=== PATIENT | female | born 1990 | race Caucasian/White ===

== ENCOUNTER 2021-04-21 07:13 | Inpatient (IN) ==
[2021-04-21] MEDS ORDERED: OXYTOCIN 30 UNITS/500 ML BAG IV PRN ×3 (08:15→18:32)
[2021-04-21] MEDS ORDERED: PENICILLIN G POTASSIUM 6 MU in DEXTROSE 5% 250 ML IV STA (08:29)
[2021-04-21 08:34] LABS: Hematocrit (blood only) 34.9 % (37-47); Hemoglobin 11.5 g/dL (12.0-16.0); Mean Corpuscular Hemoglobin 29.7 pg (25-34); Mean Corpuscular Volume 90.2 fL (80-100); Platelet Count 262 K/uL (130-400); RDW Coefficient of Variation 14.5 % (11.5-14.5); RDW Standard Deviation 47.5 fL (36.4-46.3); Red Blood Count 3.87 M/uL (4.2-5.4)
[2021-04-21] MEDS ORDERED: DINOPROSTONE 10 MG INSERT PV ONE (08:38)
[2021-04-21] MEDS: LACTATED RINGER'S 1,000 ML IV PRN ×2 (08:52→15:20)
--- NOTE | 2021-04-21 09:12 | Labor Progress Brief Note ---
Date of Service April 21, 2021 Assessment & Plan Admission and Anticipated Discharge Date Admission Date: April 21, 2021 Physical Exam Genitourinary: no vaginal lesions, no adnexal mass OB Exam Abdomen: + fundal height and + vertex Manual OB Exam: + cervical dilation fingertip, + cervical effacement 50% and + station high OB Exam Monitor Tracing: + external FHT monitor used, + external uterine monitor used, + category I and + normal FHT variability Cervidil placed vaginally for cervical ripening Results & Data ([facility]) Vital Signs (Past 12 Hours) Vital Signs Temp Pulse Resp BP 04/21/21 08:05 36.6 C 109 H 18 142/89 H 04/21/21 07:57 109 H 142/89 H
[2021-04-21] MEDS ORDERED: PENICILLIN G POTASSIUM 3 MU in DEXTROSE 5% 100 ML IV PRN (11:22)
[2021-04-21] MEDS ORDERED: fentaNYL 2MCG/ML ROPIVACAINE 1.25MG/ML 100 ML BAG EPI ONE (13:10)
[2021-04-21] MEDS ORDERED: fentaNYL citrate 100 MCG/2 ML VIAL ONE (13:10)
[2021-04-21] MEDS ORDERED: BUPIVACAINE 0.25% 30 ML VIAL ONE (13:10)
[2021-04-21] MEDS ORDERED: SODIUM CHLORIDE 0.9% INJ 10 ML VIAL ONE (13:10)
[2021-04-21] MEDS ORDERED: ePHEDrine sulfate 50 MG/ML AMP ONE (13:10)
[2021-04-21] MEDS ORDERED: ePHEDrine sulfate 50 MG/ML AMP IV PRN (13:23)
[2021-04-21] MEDS ORDERED: NALOXONE HCL 0.4 MG/1 ML VIAL/CARP IV PRN (13:23)
[2021-04-21] MEDS ORDERED: NALBUPHINE HCL INJ 10 MG/ML AMP IV PRN (13:23)
[2021-04-21] MEDS ORDERED: NALOXONE HCL 1 MG in SODIUM CHLORIDE 0.9% 1000ML 1,000 ML IV PRN (13:23)
[2021-04-21] MEDS ORDERED: fentaNYL 2MCG/ML ROPIVACAINE 1.25MG/ML 100 ML BAG EPI PRN (13:23)
[2021-04-21] MEDS ORDERED: ONDANSETRON INJ 2 MG/ML 2 ML VIAL IV PRN (13:23)
[2021-04-21] MEDS ORDERED: diphenhydrAMINE 50 MG/ML VIAL IV PRN (13:23)
--- NOTE | 2021-04-21 13:28 | Anesthesiology Consultation ---
Date of Service April 21, 2021 Assessment & Plan (1) Encounter for pre-operative examination: Chart Review Chart Review: Acceptable Risk for Labor Epidural Consults Requested none ASA ASA2 Proposed Anesthesia Anesthesia Type: Labor Epidural Risk / Benefits Reviewed With: PT / POA / Parent / Guardian, Accepts Plan and Informed Consent Obtained History Height/Weight Height: 5 ft 2 in Weight: 106.141 kg Allergies Allergy/AdvReac Type Severity Reaction Status Date / Time gluten Allergy Diarrhea Verified 04/21/21 09:35 Medications Home Medications Medication Instructions Recorded Confirmed Last Taken fluticasone propionate 50 2 spray INTRANASAL DAILY 04/21/21 04/21/21 Unknown mcg/actuation nasal spray,suspension pantoprazole 40 mg tablet,delayed 40 mg PO DAILY 04/21/21 04/21/21 04/21/21 06:00 release (Protonix) prenat.vits,te,ovy-huiv-ngyok 1 tab PO DAILY 04/21/21 04/21/21 04/21/21 06:00 Active Medications Generic Name Dose Route Start Last Admin Trade Name Brandonq PRN Reason Stop Dose Admin Lactated Ringer's 1,000 mls @ 125 mls/hr 04/21/21 08:15 04/21/21 08:52 Lr IV 04/23/21 08:14 125 mls/hr .Q8H PRN Administration L&D Protocol Protocol Exercise / Class Metabolic Activity II 4-5 Yardwork/Stairs/Walk up hill Past Anesthesia History No Hx of Anesthesia Complications and No Family Hx of Anesthesia Complications History of PONV No Hx of PONV and No Hx of Motion Sickness Social History Smoking Status: Never smoker Do You Dip or Chew Tobacco: No Hx Alcohol Use: No Hx Substance Use: No substance use type: does not use Physical Exam Vital Signs Last Vital Signs Temp 97.7 F 04/21/21 11:56 Pulse 75 04/21/21 12:28 Resp 18 04/21/21 11:56 BP 134/79 04/21/21 12:28 ENMT Mouth: no dentition abnormality Thyromental Distance: > or= 3.5 Finger Breadths Mallampati Class: II Neck normal visual inspection Respiratory normal respiratory effort Auscultation: lungs clear to auscultation bilaterally Cardiovascular Rate/Rhythm: regular rate and regular rhythm Testing Laboratory Results 04/21/21 08:27
--- NOTE | 2021-04-21 15:06 | History & Physical Report ---
Date of Service April 21, 2021 Assessment & Plan (1) Post-dates : Plan: Admit to L&D Antibiotics for GBS plans for epidural Admission and Anticipated Discharge Date Admission Date: April 21, 2021 History of Present Illness Chief Complaint: induction of labor for post-dates Primary Care Provider: Aruna Yoo, 31 F P0000 at 40.6 admittted for induction of labor for post-dates . GBS is positive. Covid is negative. history uncomplicated. Allergies Allergy/AdvReac Type Severity Reaction Status Date / Time gluten Allergy Diarrhea Verified 04/21/21 09:35 Home Medications Medication Instructions Recorded Confirmed Type fluticasone propionate 50 2 spray INTRANASAL DAILY 04/21/21 04/21/21 History mcg/actuation nasal spray,suspension pantoprazole 40 mg tablet,delayed 40 mg PO DAILY 04/21/21 04/21/21 History release (Protonix) prenat.vits,te,cbj-qrmo-phkiz 1 tab PO DAILY 04/21/21 04/21/21 History Patient History Social History Smoking Status: Never smoker Second Hand Exposure: No; Do You Dip or Chew Tobacco: No; Hx Alcohol Use: No Hx Substance Use: No Preferred Language: Citizen Of [place] Communication Ability: Effective District Court Bailiff Required: No Beliefs That Will Affect Care: None marital status: Current Living Situation: Spouse Current Living Situation Comment: Pt lives with and 2 cats Other Information That Helps Us Care for You: No Feels Safe at Home: Yes Safety Concerns: Feels Safe At This Time Assistive Devices: None OB History primip [employer] History neg Review of Systems All systems reviewed & are unremarkable except as noted in HPI & below Physical Exam Constitutional: WD/WN, vitals as above comfortable Results & Data ([place]) Vital Signs (Past 12 Hours) Vital Signs Temp Pulse Resp BP Pulse Ox 04/21/21 14:55 78 100 04/21/21 14:50 75 100 04/21/21 14:47 72 133/78 04/21/21 14:45 79 99 04/21/21 14:40 73 99 04/21/21 14:37 80 90 04/21/21 14:35 70 97 04/21/21 14:32 71 133/81 04/21/21 14:30 72 97 04/21/21 14:25 73 97 04/21/21 14:20 68 96 04/21/21 14:17 71 143/72 H 04/21/21 14:15 74 98 04/21/21 14:10 74 98 04/21/21 14:05 89 99 04/21/21 14:02 73 135/65 04/21/21 14:00 78 99 04/21/21 13:59 76 133/62 04/21/21 13:56 77 143/81 H 04/21/21 13:55 79 98 04/21/21 13:53 74 140/82 04/21/21 13:51 81 142/82 H 04/21/21 13:50 75 98 04/21/21 13:49 80 148/81 H 04/21/21 13:47 74 146/86 H 04/21/21 13:45 75 147/89 H 100 04/21/21 13:43 77 127/82 04/21/21 13:42 83 132/67 04/21/21 13:40 86 152/72 H 99 04/21/21 13:35 91 H 100 04/21/21 13:33 86 143/95 H 04/21/21 13:30 97 H 99 04/21/21 12:28 75 134/79 04/21/21 11:56 36.5 C 18 04/21/21 10:56 82 130/67 04/21/21 08:05 36.6 C 109 H 18 142/89 H 04/21/21 07:57 109 H 142/89 H Code Status & VTE Plan VTE Prophylaxis Plan VTE Prophylaxis will be ordered: No Monitoring External Monitor Cat 1
--- NOTE | 2021-04-21 18:31 | Delivery Summary ---
Vaginal Delivery Summary Date of Service April 21, 2021 Vaginal Delivery Summary Delivery Note live male MARIJA over intact perineum with delayed cord clamping and Apgars 8/9 weight pending. Cord blood obtained followed by spontaneous delivery of intact placenta. No tears. EBL 100 ml. Final sponge and instrument count are correct. Mom and baby stable.
[2021-04-21] MEDS ORDERED: bisacodyL 10 MG SUPP PR PRN (18:32)
[2021-04-21] MEDS ORDERED: SUPERCREAM 0.870% 15 GM JAR EXT PRN (18:32)
[2021-04-21] MEDS ORDERED: HYDROCORTISONE ACETATE 25 MG SUPP PR PRN (18:32)
[2021-04-21] MEDS ORDERED: BENZOCAINE 20% AER SPR 82.5 GM CAN EXT PRN (18:32)
[2021-04-21] MEDS ORDERED: ACETAMINOPHEN 325 MG TAB PO PRN (18:32)
[2021-04-21] MEDS ORDERED: DIPHTHERIA/TETANUS/PERTUSSIS 0.5 ML SYR/VIAL IM ONE (18:32)
--- NOTE | 2021-04-21 19:53 | Anesthesia Procedure Note ---
Date of Service April 21, 2021 Anesthesia Post Epidural Note Vital Signs Vital Signs: Temp Pulse Resp BP Pulse Ox 98.2 F 87 18 135/65 96 04/21/21 19:10 04/21/21 19:29 04/21/21 19:10 04/21/21 19:29 04/21/21 18:20 Notes Mental Status: alert / awake / arousable and participated in evaluation Nausea / Vomiting: adequately controlled Pain: adequately controlled Airway Patency, RR, SpO2: stable & adequate BP & HR: stable & adequate Hydration State: stable & adequate Neuraxial Anesthesia: was administered and sensory block is resolving Anesthetic Complications: no major complications apparent and Pt Satisfied with anesthetic care Epidural: Removed without complications and With tip intact
[2021-04-21] MEDS: DOCUSATE SODIUM 100 MG CAP PO SCH (21:48)
[2021-04-22] MEDS: IBUPROFEN 600 MG TAB PO PRN ×3 (04:01→19:32)
[2021-04-22 06:29] LABS: Hematocrit (blood only) 29.1 % (37-47); Hemoglobin 9.8 g/dL (12.0-16.0); Mean Corpuscular Hemoglobin 29.7 pg (25-34); Mean Corpuscular Hgb Conc 33.7 g/dL (32-36); Mean Corpuscular Volume 88.2 fL (80-100); Mean Platelet Volume 10.7 fL (7.4-10.4); Platelet Count 242 K/uL (130-400); RDW Coefficient of Variation 14.5 % (11.5-14.5); RDW Standard Deviation 46.9 fL (36.4-46.3); White Blood Count 15.31 K/uL (4.8-10.8)
[2021-04-22] MEDS: PRENATAL VITAMIN 1 TAB PO SCH (08:49)
[2021-04-22] MEDS: FERROUS SULFATE 325 MG TAB PO SCH (08:49)
[2021-04-22] MEDS: DOCUSATE SODIUM 100 MG CAP PO SCH ×2 (08:49→19:31)
[2021-04-22] MEDS ORDERED: NON-FORMULARY MEDICATION (Prenat.Vits,Cal,Min-Iron-Folic Tablet) PO SCH (09:00)
--- NOTE | 2021-04-22 09:31 | Obstetrical Progress Note ---
Date of Service April 22, 2021 Assessment & Plan (1) Normal course: PPD #1 pt doing well d/c home with instructions Results & Data ([facility]) Vital Signs (Past 12 Hours) Vital Signs Temp Pulse Resp BP 04/22/21 08:00 36.9 C 94 H 18 131/82 04/22/21 03:55 36.6 C 80 18 117/80 04/21/21 23:20 36.7 C 90 18 133/83
[2021-04-22] MEDS: PANTOprazole 40 MG TAB PO SCH (15:33)
[2021-04-22] MEDS: FLUTICASONE PROPIONATE NA SPR 16 GM BTL SCH (16:18)
[2021-04-22] MEDS ORDERED: bisacodyL 5 MG TABEC PO SCH (20:00)
[2021-04-23] MEDS: IBUPROFEN 600 MG TAB PO PRN ×3 (02:59→12:50)
[2021-04-23 06:56] LABS: Hematocrit (blood only) 28.8 % (37-47); Hemoglobin 9.7 g/dL (12.0-16.0)
--- NOTE | 2021-04-23 07:25 | Obstetrical Progress Note ---
Date of Service April 23, 2021 Assessment & Plan (1) Normal course: PPD #2 pt doing we. continue routine PP carell d/c home with instructions Subjective Ambulation: ambulating normally Voiding: no voiding problems Passing Gas:: Yes Diet Tolerance:: regular diet Lochia:: Small Feeding Type:: breast feeding Current Pain Level(1-10): 2 (heating pad helping) Physical Exam Constitutional WD/WN, vitals as above Respiratory normal respiratory effort, lungs clear to auscultation Cardiovascular RRR, no murmur, no edema Gastrointestinal (Abdomen) normal bowel sounds, soft, nontender, no hepatosplenomegaly Results & Data ([facility]) Vital Signs (Past 12 Hours) Vital Signs Temp Pulse Resp BP Pulse Ox 04/22/21 23:00 36.7 C 91 H 16 132/84 98
[2021-04-23] MEDS: FERROUS SULFATE 325 MG TAB PO SCH (08:44)
[2021-04-23] MEDS: PRENATAL VITAMIN 1 TAB PO SCH (08:44)
[2021-04-23] MEDS: DOCUSATE SODIUM 100 MG CAP PO SCH (08:44)
[2021-04-23] MEDS: FLUTICASONE PROPIONATE NA SPR 16 GM BTL SCH (08:45)
[2021-04-23] MEDS: PANTOprazole 40 MG TAB PO SCH (09:04)
== END 2021-04-23 13:40 | disposition home or self-care (01) | DRG 807 ==
LOC: 4S1 07:48 → 4S2 20:50

== ENCOUNTER 2023-12-29 08:45 | Inpatient (IN) ==
[2023-12-29] MEDS ORDERED: ACETAMINOPHEN 325 MG TAB PO PRN ×2 (09:16→17:15)
[2023-12-29] MEDS ORDERED: LIDOCAINE 1% LOCAL 20 ML VIAL INFIL PRN (09:16)
[2023-12-29] MEDS ORDERED: OXYTOCIN 30 UNITS/NSS 30 UNITS/500 ML BAG IV PRN ×2 (09:16→17:15)
[2023-12-29] MEDS ORDERED: CALCIUM CARBONATE 500 MG CHEWABLE TAB PO PRN (09:16)
[2023-12-29] MEDS: LACTATED RINGER'S 1,000 ML IV PRN (09:30)
[2023-12-29] MEDS: PENICILLIN GK 6 MU in DEXTROSE 5% 250 ML IV STA (09:55)
--- NOTE | 2023-12-29 10:09 | Anesthesiology Consultation ---
Date of Service December 29, 2023 Assessment & Plan (1) Encounter for pre-operative examination: Chart Review Chart Review: Acceptable Risk for Surgery (labs pending) History Height/Weight Height: 5 ft 2 in Weight: 104.326 kg Allergies Allergy/AdvReac Type Severity Reaction Status Date / Time gluten Allergy Diarrhea Verified 04/21/21 09:35 Medications Home Medications Medication Instructions Recorded Confirmed Last Taken fluticasone propionate 50 2 spray intranasal DAILY 04/21/21 12/29/23 12/29/23 mcg/actuation nasal spray,suspension pantoprazole 40 mg tablet,delayed 40 mg PO DAILY 04/21/21 12/29/23 12/29/23 release (Protonix) prenat.vits,te,isw-mwtj-fhlvv 1 tab PO DAILY 04/21/21 12/29/23 12/29/23 sertraline 25 mg tablet (Zoloft) 25 mg PO DAILY 12/29/23 12/29/23 12/29/23 Active Medications Generic Name Dose Route Start Last Admin Trade Name Sally PRN Reason Stop Dose Admin Lactated Ringer's 1,000 mls @ 125 mls/hr 12/29/23 09:16 12/29/23 09:30 Lr IV 12/31/23 09:15 999 mls/hr .Q8H PRN Administration L&D Protocol Protocol Penicillin G Potassium 6 mu/ 262 mls @ 262 mls/hr 12/29/23 09:16 12/29/23 09:55 Dextrose IV 12/29/23 10:15 262 mls/hr NOW STA Administration Past Medical History Medical History Post-dates Past Surgical History Surgical History (Updated 12/29/23 @ 10:10 by Francisco Haddad MD) No pertinent past surgical history Social History Smoking Status: Never smoker Do You Dip or Chew Tobacco: No Hx Alcohol Use: No Hx Substance Use: No substance use type: does not use Physical Exam Vital Signs Last Vital Signs Temp 36.5 C 12/29/23 08:52 Resp 18 12/29/23 08:52 Testing Laboratory Results 12/29/23 09:34 POC Glucose 148 H
[2023-12-29 10:53] LABS: Hemoglobin 11.5 g/dl (12.0-16.0); Mean Corpuscular Hemoglobin 29.4 pg (25.0-34.0); Mean Corpuscular Hgb Conc 33.8 g/dL (32.0-36.0); Mean Platelet Volume 11.4 fL (9.4-12.4); Platelet Count 238 K/uL (130-400); RDW Coefficient of Variation 13.5 % (11.5-14.5); RDW Standard Deviation 42.7 fL (36.4-46.3); Red Blood Count 3.91 M/uL (4.20-5.40)
[2023-12-29] MEDS ORDERED: NALOXONE HCL 1 MG in SODIUM CHLORIDE 0.9% 1,000 ML IV PRN (10:54)
[2023-12-29] MEDS ORDERED: BUPIVACAINE 0.25% PF 30 ML VIAL EPI PRN (10:54)
[2023-12-29] MEDS ORDERED: fentaNYL citrate PF 100 MCG/2 ML VIAL EPI PRN (10:54)
[2023-12-29] MEDS ORDERED: ONDANSETRON INJ 2 MG/ML 2 ML VIAL IV PRN (10:54)
[2023-12-29] MEDS ORDERED: NALOXONE HCL 0.4 MG/1 ML VIAL/CARP IV PRN (10:54)
[2023-12-29] MEDS ORDERED: SODIUM CHLORIDE 0.9% PF INJ 10 ML VIAL EPI PRN (10:54)
[2023-12-29] MEDS ORDERED: LIDOCAINE 2% MPF LOCAL 5 ML VIAL EPI PRN (10:54)
[2023-12-29] MEDS ORDERED: fentANYL 2 MCG/ML BUPIVacaine 0.125%-NSS 100ML BAG EPI PRN (10:54)
[2023-12-29] MEDS ORDERED: ePHEDrine sulfate 50 MG/ML AMP IV PRN (10:54)
[2023-12-29] MEDS ORDERED: ROPIVACAINE 0.5% PF 5 MG/ML 20 ML VIAL EPI PRN (10:54)
[2023-12-29] MEDS: fentANYL 2 MCG/ML BUPIVacaine 0.125%-NSS 100ML BAG ONE (10:55)
[2023-12-29] MEDS: BUPIVACAINE 0.25% PF 30 ML VIAL ONE (11:03)
[2023-12-29] MEDS: LIDOCAINE 2%/EPINEPHRINE 1:200,000 20 ML PF ONE (11:04)
--- OUTSIDE RECORDS SUMMARY | 2023-12-29 12:08 | External Medical Summary | Summary of Care ---
Author Name Unknown Organization [facility] Address [address] [place] [address] Phone [phone] Care Team Providers Care Pharmaceutical Representative Name Role Phone Aruna Yoo DO Primary Care Provider Reason for Visit * Reason Comments Return Visit Encounter Details Date Type Department Care Team (Late st Contact Info) Description 12/13/2023 8:30 AM EDT Office Visit Gynecology/Obstetri Odilia Zhong [address] [place] [address] Rosalba Bustamante CRNP [address] [place] [id number] Supervision of high-risk , third trimester*; History of PCOS; Obesity in , antepartum; Multigravida of advanced maternal age in third trimester; Anxiety during ; Group B Streptococcus urinary tract infection affecting in third trimester; Insulin controlled gestational diabetes mellitus (GDM) in third trimester; Antepartum anemia complicating ; Needs flu shot Allergies Active Allergy Reactions Criticality Noted Date Comments Gluten Meal 11/18/2016 documented as of this encounter (statuses as of 12/13/2023) Medications Medication Sig Dispensed Refills Start Date End Date Status 19 Oral Tablet Take 1 Tablet by mouth in the morning. Active Pantoprazole Sodium 40 MG Oral Tablet Delayed Release (Protonix)Indication s:Gastroesophageal reflux disease TAKE 1 TABLET DAILY 90 Tablet 3 05/27/2023 Active Sertraline HCl 25 MG Oral Tablet (Zoloft) TAKE 1 TABLET DAILY 90 Tablet 3 07/04/2023 Active Breast PumpIndications:Natasha st feeding status of mother Use as directed. 1 Each 10/11/2023 Active Additional Information Patient not taking.Reported on 11/07/2023 Ferrous Sulfate 325 (65 Fe) MG Oral Tablet (Feosol)Indications: Antepartum anemia complicating Take 1 Tablet by mouth in the morning and 1 Tablet before bedtime. 60 Tablet 12 10/11/2023 Active Additional Information Patient taking differently:325 mg Oral BID (.AM/PM),Indications: Taking Vitron C once per day, Reported on 10/27/2023 GowallaTouch Verio Flex System w/Device KitIndications:Gesta tional diabetes mellitus (GDM) in second trimester, gestational diabetes method of control unspecified Use to test blood sugars 4 times daily (fasting, 1 hour after breakfast, lunch, and dinner) 1 Kit 10/13/2023 Active GowallaTouch Delica Lancets 30GIndications:Gesta tional diabetes mellitus (GDM) in second trimester, gestational diabetes method of control unspecified Use to test blood sugars 4 times daily (fasting, 1 hour after breakfast, lunch, and dinner) 200 Each 6 10/13/2023 Active GowallaToJoinnus In Vitro Strip (Glucose Blood)Indications:Di et controlled gestational diabetes mellitus (GDM) in third trimester Monitor blood sugar four times daily (once fasting & 1 hour after breakfast, lunch, and dinner). 150 Strip 6 11/07/2023 Active BD Pen Needle Mini U/F 31G X 5 MM (Insulin Pen Needle)Indications:I nsulin controlled gestational diabetes mellitus (GDM) in third trimester Use with insulin once daily 100 Each 3 11/16/2023 Active Insulin Glargine Solostar 100 UNIT/ML Subcutaneous Solution Pen-injector (Lantus SoloStar)Indications :Insulin controlled gestational diabetes mellitus (GDM) in third trimester Inject 15 Units under the skin at bedtime. 9 mL 3 11/24/2023 Active documented as of this encounter (statuses as of 12/13/2023) Active Problems Problem Noted Date Diagnosed Date Insulin controlled gestation al diabetes mellitus (GDM) in third trimester 10/11/2023 Overview: Diagnosed at 27 weeks by abnormal 3 hour GTT. Nutrition consult ordered, not yet scheduled. Patient would like to see Nutrition as she is having difficulty figuring out what to eat in order to best manage gestational diabetes, as well as anemia and celiac disease. Provided with phone number to call and schedule. She is testing fasting and 1 hour postprandial blood sugars. Reports FBS overall stable (77-low 90s). Did have one fasting reading of 101 mg/dL. She states that she is fasting 12 hours most nights; discussed adding bedtime snack and decreasing fasting window to 8-10 hours. Postprandial readings normal after dinner. She does report some elevations with breakfast and lunch; highest reading was 167 mg/dL. Will continue to test four times per day and report to [facility] for ongoing management. Lab Results Component Value Date/Time 100-G GESTATIONAL GLUCOSE, 1 HOUR - [facility] 225 (H) 10/11/2023 09:35 AM 100-G GESTATIONAL GLUCOSE, 2 HOUR - [facility] 114 10/11/2023 10:35 AM 100-G GESTATIONAL GLUCOSE, 3 HOUR - [facility] 81 10/11/2023 11:29 AM 100-G GESTATIONAL GLUCOSE, FASTING - [facility] 101 (H) 10/11/2023 08:25 AM 10/27/23: MFM [facility] consult complete. Enrolled in Current Health. Instructions provided to report blood sugars each week for MFM review 11/04/23: RPM reviewed; 3 out of 7 FBS elevated. Multiple PP elevations. Nutrition consult completed 11/01. Will schedule [facility] f/u to discuss medication. 11/07/23: Follow-up [facility] visit complete; elevated FBS and some PP; patient declined starting medication today; F/U [facility] visit scheduled 11/16/23 @ 11AM 11/16/2023 Follow up [facility] compete; elevated fastings and breakfast values; Order Lantus 10 units at bedtime; messages sent to OB to start twice weekly NSTs 2x/wk NSTs, deliver 39.0-30.6 11/24/2023-RPM-3 of 6 elevated fasting blood sugars (forgot insulin one evening). 4 of 6 elevated post prandial dinner. Maternal medicine nurse practitioners to review 11/24/23: RPM reviewed; readings noted as above. Increase Lantus to 15 units at bedtime. 12/02/2023-RPM-2 elevated fasting blood sugars, 3 elevated post prandial breakfast and 1 post prandial lunch. Maternal medicine nurse practitioners to review 12/02/23: RPM reviewed; Stable overall since last dose adjustment; encouraged keeping a food diary with any PP elevations [id number] via sharifa and messaging. Overall stable (< 50% elevated) Last Assessment & Plan: She presents for follow-up of growth secondary to GDMA2 and class II obesity. Today's ultrasound notes the following: The estimated weight is appropriate for gestational age in the 89th percentile. The visualized anatomy is unremarkable in appearance. The KAYODE is normal. A BPP is 8/8. Antepartum anemia complicating 024 Overview: Hgb 11.2 at 27 wks, rx'd iron Last Assessment & Plan: CONSIDERATIONS: Severe maternal anemia (hemoglobin levels below 6 to 7 g/dl) is associated with oligohydramnios, cerebral vasodilation, delivery, miscarriage, growth restriction, nonreassuring heart rate patterns, and stillbirth. There is also an increased risk for maternal . RECOMMENDATIONS: If hemoglobin is below 11 g/dl during first and third trimesters or less than10.5 g/dL in 2nd trimester, we recommend anemia studies to assess serum ferritin, iron, iron binding capacity, transferritin saturation, and hemoglobin electrophoresis. If iron-deficiency anemia is confirmed, then we recommend iron supplementation with oral (preferred) or parenteral therapy (if recommended by blood conservation program after oral therapy has failed) as indicated to keep hemoglobin level above 11 g/dl during . Oral iron should be taken with orange juice. If anemia studies do not reflect iron deficiency anemia we recommend checking TSH, B12 and folate levels and referral to a corporate associate. If hemoglobin levels are below 8 g/dl, we recommend Maternal Medicine ultrasound for growth every 4 weeks after 24 weeks. Consider a blood transfusion if hemoglobin levels fall below 6 g/dL. ([employer] Practice Bulletin Number 95, October,). Consider Venofer transfusions if patient labs supportive of iron deficiency anemia with dosing of 300 mg IV weekly x 3 weeks GBS (group B streptococcus) UTI complicating pre gnancy 05/23/2023 Supervision of high-risk , third trimes ter 05/18/2023 Obesity in , antepartum 05/18/2023 Overview: Pre-gravid BMI 38.77 (#212, 5'2") Last Assessment & Plan: Has been following growth with radiology; will transition to MFM. AMA (advanced maternal age) multigravida 35+ Overview: Ms. Tejada will be 33 years-old at time of delivery (SCOOTER 01/06/24) She had low-risk genetic screening in this . Last Assessment & Plan: Low risk NIPT and msAFP appreciated. Anxiety during 05/18/2023 Overview: Denies current anxiety or depression symptoms in . Taking Zoloft 25 mg daily. Last Assessment & Plan: ANXIETY AND DEPRESSION CONSIDERATIONS: Untreated maternal anxiety and depression may be associated with an increased risk of multiple poor obstetrical outcomes including miscarriages, low weight, and delivery. Women with a history of anxiety or depression are at risk for recurrence both during and/or the period. Studies of first-trimester SSRI exposure do not demonstrate consistent data to support an increased risk for structural malformations. Anti-anxiety or depression medications have been associated with transient effects (withdrawal syndrome). RECOMMENDATIONS: Mental illness can and should be treated during when the benefits of treatment outweigh potential risks. Referral to behavioral health services as clinically indicated. History of PCOS 09/10/2020 Overview: History of PCOS; no treatment. Last Assessment & Plan: CONSIDERATIONS: There is an increased incidence of spontaneous and gestational diabetes mellitus in women with PCOS. However, there is no increased incidence of poor outcomes. Anxiety 06/02/2018 Moderate episode of recurrent major depressive d isorder 06/02/2018 Acne vulgaris 06/02/2018 Gastroesophageal reflux disease 06/02/2018 Ganglion cyst 07/03/2011 Overview: LEFT DORSAL HAND/WRIST Estimated Date of Delivery Comme nts Yes 01/06/2024 Based on last me nstrual period of 04/01/2023 (Exact Date) documented as of this encounter (statuses as of 12/13/2023) Resolved Problems Problem Noted Date Diagnosed Date Resolved Date GBS (group B Streptococcus c arrier), +RV culture, currently 03/26/2021 05/17/2023 , normal first 09/10/202005/05 Class 2 obesity 09/10/2020 11/07/2023 Overview: Early glucola Growth u/s every 4 weeks after 20wk Binge eating disorder 06/02/20182023 Overweight (BMI 25.0-29.9) 07/03/2011 1 05/21/2017 Overview: BMI= 28.72 07/03/11 documented as of this encounter (statuses as of 12/13/2023) Immunizations Name Administration Dates Next Due DTaP Dipth/Tet/Acell Pertussis (Infanrix), Peds 08/25/1992,09/23/1989,1988,1988,1988 HIB PRP-OMP, 3 dose (Pedvax) 09/23/1989 Hepatitis B, 0-19 yrs 07/12/2000,05/10/2000,03/04 MMR - Measles/Mumps/Rubella Vaccine 08/25/1992,0 09/23/1989 OPV - Polio Virus Vaccine (Oral) 993,09/23/1989,1988,1988 PPD 12/02/2016,10/18/2012 Seasonal Influenza, Trivalen t, (IIV3), PF, (Fluzone) 12/13/2023 TD, Preservative Free 03/15/2000 TDAP (age 10 and older)(Boostrix) 10/11/2023,,09/07/2012 documented as of this encounter Social History Tobacco Use Types Packs/Day Years Used Date Smoking Tobacco: Never Smokeless Tobacco: Never Alcohol Use Standard Drinks/Week Comments Not Currently 7 (1 standard drink = 0.6 oz pur e alcohol) weekly PHQ-2 Answer Date Recorded PHQ-2 Score 0 05/25/2019 Hunger Vital Sign Answer Date Recorded Within the past 12 months, y ou worried that your food would run out before you got the money to buy more. Never true 05/11/19 24 Within the past 12 months, t he food you bought just didn't last and you didn't have money to get more. Never true 05/11/2023 [place] Depression Scale Answer Date Recorded [place] Depression Scale Total 4 05/18/2023 The thought of harming myself has occurred to me . Never 05/18/2023 Childcare Answer Date Recorded Do you feel overwhelmed with taking care of a child, family member or friend? Yes 05/11/2023 Does your family need help f inding childcare? (Household - for ages 0-17 years) Not on file 05/11/2023 Clothing Answer Date Recorded Have you been unable to get clothing when it was really needed? No 05/11/2023 Is your family able to get c lothes or diapers when needed? (Household - for ages 0-17 years) Not on file 05/11/2023 Personal Safety Answer Date Recorded Do you feel unsafe or have concerns for your saf ety? No 05/11/2023 Do you have concerns for you r family's safety? (Household - for ages 0-17 years) Not on file 05/11/2023 Utilities Answer Date Recorded Do you have trouble paying y our heating, water, or electric bill? No 05/11/2023 Is your family able to pay t he heat, water, or electric bill? (Household - for ages 0-17 years) Not on file 05/11/2023 Does your family have access to good internet? (Household - for ages 0-17 years) Not on file 05/11/2023 Employment Status Answer Date Recorded Are you unemployed or without regular income? No 05/11/2023 Does the household have a re gular source of income? (Household - for ages 0-17 years) Not on file 05/11/2023 Social Connections Answer Date Recorded How often do you feel lonely or isolated from those around you? Sometimes 05/11/2023 Financial Resource Strain Answer Date R ecorded Do you have any trouble payi ng for your medications, or do you think you might in the future? No 05/11/2023 Does your family have troubl e paying for medicine? (Household - for ages 0-17 years) Not on file 05/11/2023 Transportation Needs Answer Date Record ed READ ONLY Do you have troubl e getting a ride to medical visits or work? Never True 05/11/2023 Does your family have a hard time getting a ride to doctors visits? (Household - for ages 0-17 years) Not on file 05/11/2023 Has lack of transportation k ept you from medical appointments, meetings, work, or from getting things needed for daily living? Check all that apply. (Adult - for ages 18 years and over) Not on file 05/11/2023 Do you (or your family) have trouble finding or paying for a ride (transportation)? (Household - for ages 0-17 years) Not on file 05/11/2023 Housing Stability Answer Date Recorded Do you currently live in a s helter or have no steady place to sleep at night? No 05/11/2023 READ ONLY Do you think you a re at risk of becoming homeless? No 05/11/2023 Does your family worry about paying for your home or becoming homeless? (Household - for ages 0-17 years) Not on file 0 05/11/2023 Are you homeless or worried that you might be in the future? (Adult - for ages 18 years and over) Not on file Are you (or your family) nan eless or worried that you might be in the future? (Household - for ages 0-17 years) Not on file Food Insecurity Answer Date Recorded Do you need food for this week? No 05/11/2023 Are you able to get enough f ood for your family? (Household - for ages 0-17 years) Not on file 05/11/2023 Does your family need food t his week? (Household - for ages 0-17 years) Not on file 05/11/2023 Do you always have enough fo od for your family? (Household - for ages 0-17 years) Not on file 05/11/2023 Estimated Date of Delivery Comme nts Yes 01/06/2024 Based on last me nstrual period of 04/01/2023 (Exact Date) Sex and Gender Information Value Date Recorded Sex Assigned at Female 05/11/2023 3:31 AM EST Gender Identity Female 05/11/2023 3:31 AM EST Sexual Orientation Straight 05/11/2023 3: 31 AM EST Job Start Date Occupation Industry Not on file Not on file Not on file documented as of this encounter Last Filed Vital Signs Vital Sign Reading Time Taken Comments Blood Pressure 118/74 12/13/2023 8:30 AM EDT Pulse - - Temperature - - Respiratory Rate - - Oxygen Saturation - - Inhaled Oxygen Concentration - - Weight 104.3 kg (230 lb) 12/13/2023 8:30 AM EDT Height - - Body Mass Index 42.07 12/02/2023 10:35 AM EDT documented in this encounter Progress Notes * Suly Toribio CMA - 12/13/2023 8:42 AM EDT Patient here for FLU vaccine injection. Patient doing well no complaints. Injection given IM as ordered. Patient tolerated well. Patient to follow up as directed. Patient instructed to call if any complications. Patient verbalized understanding of instructions given and her follow up appt for LINETTE Injection site: Left Deltoid Medication Source: Dispensed stock medication * Rosalba Bustamante CRNP - 12/13/2023 8:31 AM EDT 36w4d Doing well. No regular ctx, leaking/bleeding. Baby is active. Reviewed [facility] and labor signs, when tocall. Labor instructions provided. Having weekly BPPs in lieu of NSTs; completed today, preliminary report 11/09 with vertex presentation. Sending blood sugars to [facility]. Up to date with growth scans. Will likely use POPs for contraception . GBS swab deferred, +urine. Flu vaccine today. 1 week return CHARISSE Galindo * Suly Toribio CMA - 12/13/2023 8:30 AM EDT 36w4d Denies any concerns FLU vaccine documented in this encounter Plan of Treatment Upcoming Encounters Date Type Department Care Team (Late st Contact Info) Description 12/22/2023 3:00 PM EDT Imaging Radiology [facility] [address] [place] [id number] 12/22/2023 3:45 PM EDT Office Visit Gynecology/Obstetrics [facility] [address] [place] [phone] Katie Nunn PA-C [address] [place] [address] 12/29/2023 3:00 PM EDT Imaging Radiology [facility] [address] [place] [address] 12/29/2023 3:45 PM EDT Office Visit Gynecology/Obstetrics [facility] [address] [place] [address] Katie Nunn PA-C [address] [place] [address] 01/04/2024 2:45 PM EDT Imaging Radiology [facility] 2nd Floor, [place] [address] [place] [address] 01/04/2024 3:15 PM EDT Office Visit Gynecology/Obstetrics [facility] [address] [place] [id number] Aurora Stewart CRNP [address] [place] [id number] Health Maintenance Due Date Last Done Comments HPV/Co-Test 02/02/2018 Depression Monitoring 05/25/2020 05/25/2019 Diabetes Screening 06/09/2021 06/09/2018 COVID-19 Vaccine ( season) 2023 Cervical Cancer Screening 09/01/2024 Pap Smear 09/01/2024 09/01/2021, 01/03, 11/19/2015, Additional history exists DTap/Tdap Vaccines (9 - Td or Tdap) 10/10/2033 10/11/2023, 01/29/2021, 09/07/2012, Additional history exists Hepatitis B Vaccine Completed 07/12/2000, 05/10/2000, 03/15/2000 Influenza Vaccine (FLU shot) Completed 12/13/2023 HPV (Gardasil) Vaccine Aged Out No lo nger eligible based on patient's age to complete this topic MENINGOCOCCAL (MENACTRA/MENVEO) Aged Out No longer eligible based on patient's age to complete this topic Pneumococcal Vaccine: Pediatrics (0 to 5 Years) and At-Risk Patients (6 to 64 Years) Aged Out No longer eligible based on patient's age to complete this topic documented as of this encounter Goals Goal Patient Goal Type Associated Problems Recent Progress Patient-Stated? Author Reminders Care Plan OB Reminders No Mychart, Provider documented as of this encounter Medical Devices Not on filedocumented as of this encounter Visit Diagnoses Diagnosis Supervision of high-risk , third trimester- Primary History of PCOS Personal history of other genital system and obstetric disorders Obesity in , antepartum Obesity complicating , childbirth, or the puerperium, antepartum condition or complication Multigravida of advanced maternal age in third trimester Anxiety during Group B Streptococcus urinary tract infection affecting in third trimester Insulin controlled gestational diabetes mellitus (GDM) in third trimester Antepartum anemia complicating Anemia, antepartum Needs flu shot Need for prophylactic vaccination and inoculation against influenza documented in this encounter Additional Health Concerns Active Problems Noted Date Diagnosed Date OB Reminders 10/23/2023 documented as of this encounter Care Teams Pharmaceutical Representative Relationship Specialty Start Date End Date Aruna Yoo DO [address] [place] [address] PCP - General Family Medicine 02/08/11 documented as of this encounter
--- OUTSIDE RECORDS SUMMARY | 2023-12-29 12:08 | External Medical Summary | Summary of Care ---
Author Name Unknown Organization [facility] Address [address] [place] [address] Phone [phone] Care Team Providers Care Cylinder Devalver Name Role Phone Aruna Yoo DO Primary Care Provider Reason for Visit * Reason Comments Ultrasound Encounter Details Date Type Department Care Team (Late st Contact Info) Description 12/02/2023 3:00 PM EDT Office Visit Laboratory Specialist Obstetrics Maternal [facility], [place] [address], [place] [phone] Sage Block DO [address], [place] [phone] Insulin controlled gestational diabetes mellitus (GDM) in third trimester*; Obesity in , antepartum Allergies Active Allergy Reactions Criticality Noted Date Comments Gluten Meal 11/18/2016 documented as of this encounter (statuses as of 12/02/2023) Medications Medication Sig Dispensed Refills Start Date End Date Status 19 Oral Tablet Take 1 Tablet by mouth in the morning. Active Pantoprazole Sodium 40 MG Oral Tablet Delayed Release (Protonix)Indication s:Gastroesophageal reflux disease TAKE 1 TABLET DAILY 90 Tablet 3 05/27/2023 Active Sertraline HCl 25 MG Oral Tablet (Zoloft) TAKE 1 TABLET DAILY 90 Tablet 3 07/04/2023 Active Breast PumpIndications:[place] st feeding status of mother Use as [...] C once per day, Reported on 10/27/2023 E-Line MediaToi2we Verio Flex System w/Device KitIndications:Gesta tional diabetes mellitus (GDM) in second trimester, gestational diabetes method of control unspecified Use to test blood sugars 4 times daily (fasting, 1 hour after breakfast, lunch, and dinner) 1 Kit 10/13/2023 Active Qloo Delica Lancets 30GIndications:Gesta tional diabetes mellitus (GDM) in second trimester, gestational diabetes method of control unspecified Use to test blood sugars 4 times daily (fasting, 1 hour after breakfast, lunch, and dinner) 200 Each 6 10/13/2023 Active MiName In Vitro Strip (Glucose Blood)Indications:Di et controlled [...] as of this encounter (statuses as of 12/02/2023) Active Problems Problem Noted Date Diagnosed Date [...] four times per day and report to [facility] for ongoing management. Lab Results Component [...] a food diary with any PP elevations Last Assessment & Plan: She presents for [...] and folate levels and referral to a sand blaster. If hemoglobin levels are below 8 g/dl, we recommend Maternal Medicine ultrasound for growth every 4 weeks after 24 weeks. Consider a blood transfusion if hemoglobin levels fall below 6 g/dL. ([employer] Practice Bulletin Number 95, October,). Consider Venofer [...] following growth with radiology; will transition to [facility]. AMA (advanced maternal age) multigravida 35+ Overview: [...] as of this encounter (statuses as of 12/02/2023) Resolved Problems Problem Noted Date Diagnosed Date Resolved Date GBS (group B Streptococcus c sera), +RV culture, currently 03/26/2021 05/17/2023 , normal first 09/10/202005/05 Class 2 obesity 09/10/2020 11/07/2023 Overview: Early glucola Growth u/s every 4 weeks after 20wk Binge eating disorder 06/02/20182023 Overweight (BMI 25.0-29.9) 07/03/2011 1 05/21/2017 Overview: BMI= 28.72 07/03/11 documented as of this encounter (statuses as of 12/02/2023) Immunizations Name Administration Dates Next Due DTaP Dipth/Tet/Acell Pertussis (Infanrix), Peds 08/25/1992,09/23/1989,1988,1988,1988 HIB PRP-OMP, 3 dose (Pedvax) 09/23/1989 Hepatitis B, 0-19 yrs 07/12/2000,05/10/2000,03/04 MMR - Measles/Mumps/Rubella Vaccine 08/25/1992,0 09/23/1989 OPV - Polio Virus Vaccine (Oral) 993,09/23/1989,1988,1988 PPD 12/02/2016,10/18/2012 TD, Preservative Free 03/15/2000 TDAP (age 10 [...] money to get more. Never true 05/11/2023 [place] Depression Scale Answer Date Recorded [place] Depression Scale Total 4 05/18/2023 The thought [...] on file documented as of this encounter Progress Notes * Sage Block, - 12/02/2023 5:21 PM EDT MATERNAL MEDICINE VISIT Jane Tejada presented today at 35w0d to [facility] for an ultrasound. She is being seen today by Maternal- Medicine for the following reasons: Problem List Items Addressed This Visit Obesity in , antepartum Insulin controlled gestational diabetes mellitus (GDM) in third trimester - Primary She presents for follow-up of growth secondary to GDMA2 and class II obesity. Today's ultrasound notes the following: The estimated weight is appropriate for gestational age in the 89th percentile. The visualized anatomy is unremarkable in appearance. The KAYODE is normal. A BPP is 8/8. I reviewed the ultrasound images. Jane Tejada was given the opportunity to meet with me if she had any questions. Please refer to the ultrasound report for additional details about today's ultrasound examination. RECOMMENDATIONS: Recommend surveillance secondary to GDMA2. No follow-up with Maternal Medicine is necessary unless further questions or indications arise. Recommend delivery at 39 weeks gestation. Thank you for allowing us to participate in the care of this patient. Please call with any questions. Sage Block DO 12/02/2023 5:21 PM documented in this encounter Miscellaneous Notes * Assessment & Plan Note - Sage Block DO - 12/02/2023 5:21 PM EDT Associated Problem(s): Insulin controlled gestational diabetes mellitus (GDM) in third trimester She presents for follow-up of growth secondary to GDMA2 and class II obesity. Today's ultrasound notes the following: The estimated weight is appropriate for gestational age in the 89th percentile. The visualized anatomy is unremarkable in appearance. The KAYODE is normal. A BPP is 8/8. documented in this encounter Plan of Treatment Upcoming Encounters Date Type Department Care Team (Late st Contact Info) Description 12/06/2023 3:00 PM EDT Imaging Radiology [facility] [address] [place] [address] 12/06/2023 3:45 PM EDT Office Visit Gynecology/Obstetrics [facility] [address] [place] [address] Katie Nunn PA-C [address] [address] 12/13/2023 7:45 AM EDT Imaging Radiology [facility] [address] [facility] [place] [place] [address] 12/13/2023 8:30 AM EDT Office Visit Gynecology/Obstetrics [facility] [address] [facility] [place] [address] Rosalba Bustamante CRNP [address] [place] [address] 12/22/2023 3:00 PM EDT Imaging Radiology [facility] [address] [facility] [place] [address] 12/22/2023 3:45 PM EDT Office Visit Gynecology/Obstetrics [facility] [address] [facility] [place] [address] Katie Nunn PA-C [address] [place] [address] 12/29/2023 3:00 PM EDT Imaging Radiology [facility] [address] [facility] [place] [address] 12/29/2023 3:45 PM EDT Office Visit Gynecology/Obstetrics [facility] [address] [facility] [place] [address] Katie Nunn PA-C [address] [place] [address] 01/04/2024 2:45 PM EDT Imaging Radiology [facility] 2nd [facility] [address] [facility] [place] [address] 01/04/2024 3:15 PM EDT Office Visit Gynecology/Obstetrics [address] [place] [address] Aurora Stewart CRNP [address] [place] [address] Health Maintenance Due Date Last Done Comments HPV/Co-Test 02/02/2018 Depression Monitoring 05/25/2020 05/25/2019 Diabetes Screening 06/09/2021 06/09/2018 COVID-19 Vaccine (2022-24 season) 2022 Influenza Vaccine (FLU shot) (#1) 2023 Cervical Cancer Screening 09/01/2024 Pap Smear 09/01/2024 09/01/2021, 01/03, 11/19/2015, Additional history exists DTap/Tdap Vaccines (9 - Td or Tdap) 10/10/2033 10/11/2023, 01/29/2021, 09/07/2012, Additional history exists Hepatitis B Vaccine Completed 07/12/2000, 05/10/2000, 03/15/2000 HPV (Gardasil) Vaccine Aged Out No lo [...] Author Reminders Care Plan OB Reminders No Francia Provider documented as of this encounter Medical Devices Not on filedocumented as of this encounter Visit Diagnoses Diagnosis Insulin controlled gestational diabetes mellitus (GDM) in third trimester- Primary Obesity in , antepartum Obesity complicating , childbirth, or the puerperium, antepartum condition or complication documented in this encounter Additional Health Concerns Active Problems Noted Date Diagnosed Date OB Reminders 10/23/2023 documented as of this encounter Care Teams Cylinder Devalver Relationship Specialty Start Date End Date Aruna Yoo DO [address] [place], [place] [address] PCP - General Family Medicine 02/08/11 documented as of this encounter
--- OUTSIDE RECORDS SUMMARY | 2023-12-29 12:08 | External Medical Summary | Summary of Care ---
Author Name Unknown Organization [facility] Address [address] [place] [address] Phone [phone] Care Team Providers Care Grain Grader Name Role Phone Aruna Yoo DO Primary Care Provider Encounter Details Date Type Department Care Team (Late st Contact Info) Description 11/04/2023 Telephone [facility] Nanny Obstetrics Maternal Medicine, [place] [address], [place] [phone] [place], Nurse Morning Nanny [facility] [address] [place] [address] Allergies Active Allergy Reactions Criticality Noted Date [...] DAILY 90 Tablet 3 07/04/2023 Active Breast PumpIndications:[place] st feeding status of mother Use as [...] C once per day, Reported on 10/27/2023 OneTouch Verio Flex System w/Device KitIndications:Gesta tional diabetes mellitus (GDM) in second trimester, gestational diabetes method of control unspecified Use to test blood sugars 4 times daily (fasting, 1 hour after breakfast, lunch, and dinner) 1 Kit 10/13/2023 Active OneTouch Delica Lancets 30GIndications:Gesta tional diabetes mellitus (GDM) in second trimester, gestational diabetes method of control unspecified Use to test blood sugars 4 times daily (fasting, 1 hour after breakfast, lunch, and dinner) 200 Each 6 10/13/2023 Active documented as of this encounter (statuses [...] four times per day and report to [facility] for ongoing management. Lab Results Component Value Date/Time 100-G GESTATIONAL GLUCOSE, 1 HOUR - [facility] 225 (H) 10/11/2023 09:35 AM 100-G GESTATIONAL GLUCOSE, 2 HOUR - [facility] 114 10/11/2023 10:35 AM 100-G GESTATIONAL GLUCOSE, 3 HOUR - [facility] 81 10/11/2023 11:29 AM 100-G GESTATIONAL GLUCOSE, FASTING - [facility] 101 (H) 10/11/2023 08:25 AM 10/27/23: [facility] ADAPT consult complete. Enrolled in Current Health. Instructions provided to report blood sugars each week for MF review 11/04/23: RPM reviewed; 3 out of [...] any PP elevations Last Assessment & Plan: Working with ADAPT. She has appt today with personal development educator. Discussed blood sugar goals and management in the event that majority of sugars are elevated. Questions answered. Antepartum anemia complicating 024 Overview: Hgb 11.2 [...] and folate levels and referral to a bottle hop. If hemoglobin levels are below 8 g/dl, we recommend Maternal Medicine ultrasound for growth every 4 weeks after 24 weeks. Consider a blood transfusion if hemoglobin levels fall below 6 g/dL. ([employer] Practice Bulletin Number 95, October,). Consider Venofer transfusions if patient labs supportive of iron deficiency anemia with dosing of 300 mg IV weekly x 3 weeks GBS (group B streptococcus) UTI complicating pre gnancy 05/23/2023 Supervision of high-risk , third trim ter 05/18/2023 Obesity in , antepartum 05/18/2023 [...] money to get more. Never true 05/11/2023 [employer] Depression Scale Answer Date Recorded [employer] Depression Scale Total 4 05/18/2023 The thought [...] on file documented as of this encounter Miscellaneous Notes * Telephone Encounter - Cara Huynh OSA - 11/04/2023 2:21 PM EDT Spoke with Jane. Appointment scheduled. Patient aware of date, time and location of Maternal Medicine appointment. * Telephone Encounter - Cara Huynh OSA - 11/04/2023 2:21 PM EDT ----- Message from Nae Lewis sent at 11/04/2023 12:55 PM EDT ----- Regarding: Needs FU ADAPT (please call) Ri, Please schedule Ms. Tejada for a 30 minute ADAPT follow up to further manage gestational diabetes at the patient's earliest convenience. Thank you, CHARISSE Cohen documented in this encounter Plan of Treatment Upcoming Encounters Date Type Department Care Team (Late st Contact Info) Description 12/06/2023 3:00 PM EDT Imaging Radiology [facility] [address] [place] [address] 12/06/2023 3:45 PM EDT Office Visit Gynecology/Obstetrics [facility] [address] [place] [address] Katie Nunn PA-C [address] [place] [address] 12/13/2023 7:45 AM EDT Imaging Radiology [facility] [address] [place] [address] 12/13/2023 8:30 AM EDT Office Visit Gynecology/Obstetrics [facility] [address] [place] [address] BackerRosalba CRNP [address] [place] [address] 12/22/2023 3:00 PM EDT Imaging Radiology [facility] [address] [place] [address] 12/22/2023 3:45 PM EDT Office Visit Gynecology/Obstetrics [facility] [address] [place] [address] Katie Nunn PA-C [address] [place] [address] 12/29/2023 3:00 PM EDT Imaging Radiology [facility] [address] [place] [address] 12/29/2023 3:45 PM EDT Office Visit Gynecology/Obstetrics [facility] [address] [place] [address] Katie Nunn PA-C [address] [place] [address] 01/04/2024 2:45 PM EDT Imaging Radiology [facility] 2nd Floor, [place] [address] [place] [address] 01/04/2024 3:15 PM EDT Office Visit Gynecology/Obstetrics [facility] [address] [place] [address] Aurora Stewart CRNP [address] [place] [address] Health Maintenance Due Date Last Done Comments HPV/Co-Test 02/02/2018 Depression Monitoring 05/25/2020 05/25/2019 Diabetes Screening 06/09/2021 06/09/2018 COVID-19 Vaccine ( season) 2022 Influenza Vaccine (FLU shot) (#1) [...] Not on filedocumented as of this encounter Additional Health Concerns Active Problems Noted Date Diagnosed Date OB Reminders 10/23/2023 documented as of this encounter Care Teams Grain Grader Relationship Specialty Start Date End Date Aruna Yoo DO [address] [place] [address] PCP - General Family Medicine 02/08/11 documented as of this encounter
--- OUTSIDE RECORDS SUMMARY | 2023-12-29 12:08 | External Medical Summary | Summary of Care ---
Author Name Unknown Organization [facility] Address [address] [facility] [address] Phone [phone] Care Team Providers Care Remediation Technician Name Role Phone Aruna Yoo DO Primary Care Provider Reason for Visit * Reason Comments Return Visit Encounter Details Date Type Department Care Team (Late st Contact Info) Description 12/06/2023 3:45 PM EDT Office Visit Gynecology/Obstetric [facility] [address] [facility] [place] [address] Katie Nunn PA-C [address] [facility] [place] [address] Supervision of high-risk , third trimester*; Insulin controlled gestational diabetes mellitus (GDM) in third trimester; Multigravida of advanced maternal age in third trimester; Obesity in , antepartum; Anxiety during ; Antepartum anemia complicating ; History of PCOS Allergies Active Allergy Reactions Criticality Noted Date Comments Gluten Meal 11/18/2016 documented as of this encounter (statuses as of 12/06/2023) Medications Medication Sig Dispensed Refills Start Date [...] C once per day, Reported on 10/27/2023 InnovEco Flex System w/Device KitIndications:Gesta tional diabetes mellitus (GDM) in second trimester, gestational diabetes method of control unspecified Use to test blood sugars 4 times daily (fasting, 1 hour after breakfast, lunch, and dinner) 1 Kit 10/13/2023 Active [employer] DelCryoMedix Lancets 30GIndications:Gesta tional diabetes mellitus (GDM) in second trimester, gestational diabetes method of control unspecified Use to test blood sugars 4 times daily (fasting, 1 hour after breakfast, lunch, and dinner) 200 Each 6 10/13/2023 Active InnovEco In Vitro Strip (Glucose Blood)Indications:Di et controlled [...] as of this encounter (statuses as of 12/06/2023) Active Problems Problem Noted Date Diagnosed Date [...] four times per day and report to [facility] for ongoing management. Lab Results Component [...] and folate levels and referral to a dry mill worker. If hemoglobin levels are below 8 g/dl, we recommend Maternal Medicine ultrasound for growth every 4 weeks after 24 weeks. Consider a blood transfusion if hemoglobin levels fall below 6 g/dL. ([employer] Practice Bulletin Number 95, October,). Consider Venofer [...] as of this encounter (statuses as of 12/06/2023) Resolved Problems Problem Noted Date Diagnosed Date Resolved Date GBS (group B Streptococcus c arrier), +RV culture, currently 03/26/2021 05/17/2023 , normal first 09/10/202005/05 Class 2 obesity 09/10/2020 11/07/2023 Overview: Early glucola Growth u/s every 4 weeks after 20wk Binge eating disorder 06/02/20182023 Overweight (BMI 25.0-29.9) 07/03/2011 1 05/21/2017 Overview: BMI= 28.72 07/03/11 documented as of this encounter (statuses as of 12/06/2023) Immunizations Name Administration Dates Next Due DTaP [...] money to get more. Never true 05/11/2023 [place] Depression Scale Answer Date Recorded [place] Depression Scale Total 4 05/18/2023 The thought [...] Sign Reading Time Taken Comments Blood Pressure 114/72 12/06/2023 4:03 PM EDT Pulse - - Temperature - - Respiratory Rate - - Oxygen Saturation - - Inhaled Oxygen Concentration - - Weight 105.4 kg (232 lb 6.4 oz) 12/06/2023 4:03 PM EDT Height - - Body Mass Index 42.51 12/02/2023 10:35 AM EDT documented in this encounter Progress Notes * Suly Toribio CMA - 12/06/2023 4:03 PM EDT 35w4d BPP 8/8 KAYODE 21.4 * Katie Nunn PA-C - 12/06/2023 3:34 PM EDT Jane Tejada is a 33 year old female here for her routine OB appointment at 35w4d Her Estimated Date of Delivery: 01/06/24 Completed BPP prior to appointment today. Final report not in at the time of her visit. Preliminaryreview of PACS images shows BPP 8/8. KAYODE normal. REVIEW OF SYSTEMS She affirms movement. Denies vaginal bleeding, LOF, regular contractions, N/V, headaches, vision changes. PHYSICAL EXAM BP 114/72 | Wt 105.4 kg (232 lb 6.4 oz) | LMP 04/01/2023 (Exact Date) | BMI 42.51 kg/m | BSA 2.15m ASSESSMENT/PLAN Supervision of high-risk , third trimester (Primary) Insulin controlled gestational diabetes mellitus (GDM) in third trimester Multigravida of advanced maternal age in third trimester Obesity in , antepartum Antepartum anemia complicating History of PCOS Supervision of - labor precautions and kick counts reviewed - IOL scheduled 01/05 RTO in 1 week for LINETTE/BPP as scheduled. Katie Nunn PA-C 12/06/2023 documented in this encounter Plan of Treatment Upcoming Encounters Date Type Department Care Team (Jaqueline Contact Info) Description 12/13/2023 7:45 AM EDT Imaging Radiology [facility] [address] [place] [address] 12/13/2023 8:30 AM EDT Office Visit Gynecology/Obstetrics [facility] [address] [place] [address] Rosalba Bustamante CRNP [address] [place] [address] 12/22/2023 3:00 PM EDT Imaging Radiology [facility] [address] [place] [address] 12/22/2023 3:45 PM EDT Office Visit Gynecology/Obstetrics [facility] [address] [place] [address] Katie Nunn PA-C [address] [address] 12/29/2023 3:00 PM EDT Imaging Radiology [facility] [address] [place] [address] 12/29/2023 3:45 PM EDT Office Visit Gynecology/Obstetrics [facility] [address] [place] [address] Katie Nunn PA-C [address] [address] 01/04/2024 2:45 PM EDT Imaging [facility] [address] [place] [address] 01/04/2024 3:15 PM EDT Office Visit Gynecology/Obstetrics [facility] [address] [place] [address] Aurora Stewart CRNP [address] [place] [address] Health Maintenance Due Date Last Done Comments HPV/Co-Test 02/02/2018 Depression Monitoring 05/25/2020 05/25/2019 Diabetes Screening 06/09/2021 06/09/2018 COVID-19 Vaccine ( season) 2023 Influenza Vaccine (FLU shot) (#1) 2023 Cervical [...] Supervision of high-risk , third trimester- Primary Insulin controlled gestational diabetes mellitus (GDM) in third trimester Multigravida of advanced maternal age in third trimester Obesity in , antepartum Obesity complicating , childbirth, or the puerperium, antepartum condition or complication Anxiety during Antepartum anemia complicating Anemia, antepartum History of PCOS Personal history of other genital system and obstetric disorders documented in this encounter Additional Health Concerns Active Problems Noted Date Diagnosed Date OB Reminders 10/23/2023 documented as of this encounter Care Teams Remediation Technician Relationship Specialty Start Date End Date Aruna Yoo DO [facility] [address] [place] [address] PCP - General Family Medicine 02/08/11 documented as of this encounter
--- OUTSIDE RECORDS SUMMARY | 2023-12-29 12:08 | External Medical Summary | Summary of Care ---
Author Name Unknown Organization [facility] Address [address] [facility] [address] [place] [address] Phone [phone] Care Team Providers Care Marine Engineer Cpvec Name Role Phone Aruna Yoo DO Primary Care Provider Reason for Visit * Reason Comments Return Visit Encounter Details Date Type Department Care Team (Late st Contact Info) Description 12/22/2023 3:45 PM EDT Office Visit Gynecology/Obstetri [facility] [address] [facility] [place] [address] Katie Nunn PA-C [address] [facility] [place] [address] Supervision of high-risk , third trimester*; Obesity in , antepartum; Insulin controlled gestational diabetes mellitus (GDM) in third trimester; Multigravida of advanced maternal age in third trimester; Antepartum anemia complicating ; Anxiety during ; Group B Streptococcus urinary tract infection affecting in third trimester; History of PCOS Allergies Active Allergy Reactions Criticality Noted Date Comments Gluten Meal 11/18/2016 documented as of this encounter (statuses as of 12/22/2023) Medications Medication Sig Dispensed Refills Start Date End Date Status 19 Oral Tablet Take 1 Tablet by mouth in the morning. Active Pantoprazole Sodium 40 MG Oral Tablet Delayed Release (Protonix)Indication s:Gastroesophageal reflux disease TAKE 1 TABLET DAILY 90 Tablet 3 05/27/2023 Active Sertraline HCl 25 MG Oral Tablet (Zoloft) TAKE 1 TABLET DAILY 90 Tablet 3 07/04/2023 Active Breast PumpIndications:[place] st feeding status of mother Use as [...] C once per day, Reported on 10/27/2023 Tropical Skoopsio Flex System w/Device KitIndications:Gesta tional diabetes mellitus (GDM) in second trimester, gestational diabetes method of control unspecified Use to test blood sugars 4 times daily (fasting, 1 hour after breakfast, lunch, and dinner) 1 Kit 10/13/2023 Active [employer] Delica Lancets 30GIndications:Gesta tional diabetes mellitus (GDM) in second trimester, gestational diabetes method of control unspecified Use to test blood sugars 4 times daily (fasting, 1 hour after breakfast, lunch, and dinner) 200 Each 6 10/13/2023 Active Deskwanted In Vitro Strip (Glucose Blood)Indications:Di et controlled [...] as of this encounter (statuses as of 12/22/2023) Active Problems Problem Noted Date Diagnosed Date [...] four times per day and report to [facility] for ongoing management. Lab Results Component [...] a food diary with any PP elevations 12/09/20232840-TWF-qnweurdma via sharifa and messaging. Overall stable (< 50% elevated) 12/14/20234024-PTF-fggosoy stable (< 50% elevated) 12/22/20232895-SEQ-rtojfsk stable (< 50% elevated) Last Assessment & [...] and folate levels and referral to a infant and toddler teacher. If hemoglobin levels are below 8 g/dl, we recommend Maternal Medicine ultrasound for growth every 4 weeks after 24 weeks. Consider a blood transfusion if hemoglobin levels fall below 6 g/dL. ([employer] Security Shift Super[employer] Practice Bulletin Number 95, October,). Consider Venofer [...] following growth with radiology; will transition to M. AMA (advanced maternal age) multigravida 35+ Overview: [...] as of this encounter (statuses as of 12/22/2023) Resolved Problems Problem Noted Date Diagnosed Date Resolved Date GBS (group B Streptococcus c arrier), +RV culture, currently 03/26/2021 05/17/2023 , normal first 09/10/202005/05 Class 2 obesity 09/10/2020 11/07/2023 Overview: Early glucola Growth u/s every 4 weeks after 20wk Binge eating disorder 06/02/20182023 Overweight (BMI 25.0-29.9) 07/03/2011 1 05/21/2017 Overview: BMI= 28.72 07/03/11 documented as of this encounter (statuses as of 12/22/2023) Immunizations Name Administration Dates Next Due DTaP [...] money to get more. Never true 05/11/2023 [place] Depression Scale Answer Date Recorded [place] Depression Scale Total 4 05/18/2023 The thought [...] Sign Reading Time Taken Comments Blood Pressure 120/72 12/22/2023 3:21 PM EDT Pulse - - Temperature - - Respiratory Rate - - Oxygen Saturation - - Inhaled Oxygen Concentration - - Weight 104.7 kg (230 lb 12.8 oz) 12/22/2023 3:21 PM EDT Height - - Body Mass Index 42.21 12/02/2023 10:35 AM EDT documented in this encounter Progress Notes * Suly Toribio CMA - 12/22/2023 3:40 PM EDT 37w6d Denies any concerns BPP: 11/09 KAYODE 22.3 * Katie Nunn PA-C - 12/22/2023 2:54 PM EDT Jane Tejada is a 33 year old female here for her routine OB appointment at 37w6d Her Estimated Date of Delivery: 01/06/24 Weekly BPPs secondary to GDMA2. Completed this afternoon prior to appointment. Final report 11/09. Normal KAYODE. 22.3. Cephalic presentation. REVIEW OF SYSTEMS She affirms movement. Denies vaginal bleeding, LOF, contractions, N/V, headaches, vision changes, RUQ pain. PHYSICAL EXAM Filed Vitals: 12/22/23 1521 BP: 120/72 Weight: 104.7 kg (230 lb 12.8 oz) ASSESSMENT/PLAN Supervision of high-risk , third trimester (Primary) Obesity in , antepartum Insulin controlled gestational diabetes mellitus (GDM) in third trimester - Sending sugars to [facility]. Multigravida of advanced maternal age in third trimester Antepartum anemia complicating - Stable as of CBC 8/5 Anxiety during Group B Streptococcus urinary tract infection affecting in third trimester Supervision of - recommended flu vaccine - patient received prior - IOL scheduled [facility] 01/05 - labor precautions and kick counts reviewed RTO in 1 week for LINETTE/BPP Katie Nunn PA-C 12/22/2023 documented in this encounter Plan of Treatment Upcoming Encounters Date Type Department Care Team (Late st Contact Info) Description 12/29/2023 3:00 PM EDT Imaging Radiology [facility] [address] [place] [address] 12/29/2023 3:45 PM EDT Office Visit Gynecology/Obstetrics [facility] [address] [place] [address] Katie Nunn PA-C [address] [place] [address] [place] [address] 01/04/2024 2:45 PM EDT Imaging Radiology [facility] [address] [place] [address] 01/04/2024 3:15 PM EDT Office Visit Gynecology/Obstetrics [facility] [address] [place] [address] Aurora Stewart CRNP [address] [place] [id number] Health Maintenance Due Date Last Done Comments [...] Author Reminders Care Plan OB Reminders No Robt, Provider documented as of this encounter Medical Devices Not on filedocumented as of this encounter Visit Diagnoses Diagnosis Supervision of high-risk , third trimester- Primary Obesity in , antepartum Obesity complicating , childbirth, or the puerperium, antepartum condition or complication Insulin controlled gestational diabetes mellitus (GDM) in third trimester Multigravida of advanced maternal age in third trimester Antepartum anemia complicating Anemia, antepartum Anxiety during Group B Streptococcus urinary tract infection affecting in third trimester History of PCOS Personal history of other genital system and obstetric disorders documented in this encounter Additional Health Concerns Active Problems Noted Date Diagnosed Date OB Reminders 10/23/2023 documented as of this encounter Care Teams Marine Engineer Cpvec Relationship Specialty Start Date End Date Aruna Yoo DO [address] [place] [address] PCP - General Family Medicine 02/08/11 documented as of this encounter
--- OUTSIDE RECORDS SUMMARY | 2023-12-29 12:08 | External Medical Summary | Summary of Care ---
Author Name Unknown Organization [facility] Address [address] [facility] [place] [address] Phone [phone] Care Team Providers Care Manager Hydraulic Name Role Phone Aruna Yoo DO Primary Care Provider Reason for Visit * Reason Onset Date Comments Diabetes 12/21/2023 Encounter Details Date Type Department Care Team (Late st Contact Info) Description 12/21/2023 10:00 AM EDT Scheduled Telephone Daija Arriaza [address] [place] [address] Mala Tang RDN [address] [place] [id number] Allergies Active Allergy Reactions Criticality Noted Date Comments Gluten Meal 11/18/2016 documented as of this encounter (statuses as of 12/21/2023) Medications Medication Sig Dispensed Refills Start Date End Date Status 19 Oral Tablet Take 1 Tablet by mouth in the morning. Active Pantoprazole Sodium 40 MG Oral Tablet Delayed Release (Protonix)Indication s:Gastroesophageal reflux disease TAKE 1 TABLET DAILY 90 Tablet 3 05/27/2023 Active Sertraline HCl 25 MG Oral Tablet (Zoloft) TAKE 1 TABLET DAILY 90 Tablet 3 07/04/2023 Active Breast PumpIndications:[place] st feeding status of mother Use as [...] C once per day, Reported on 10/27/2023 Biophytis Flex System w/Device KitIndications:Gesta tional diabetes mellitus (GDM) in second trimester, gestational diabetes method of control unspecified Use to test blood sugars 4 times daily (fasting, 1 hour after breakfast, lunch, and dinner) 1 Kit 10/13/2023 Active Maytech Lancets 30GIndications:Gesta tional diabetes mellitus (GDM) in second trimester, gestational diabetes method of control unspecified Use to test blood sugars 4 times daily (fasting, 1 hour after breakfast, lunch, and dinner) 200 Each 6 10/13/2023 Active Biophytis In Vitro Strip (Glucose Blood)Indications:Di et controlled [...] as of this encounter (statuses as of 12/21/2023) Active Problems Problem Noted Date Diagnosed Date [...] four times per day and report to [facility] for ongoing management. Lab Results [...] a food diary with any PP elevations 12/09/20236845-ARK-dacovuwzk via sharifa and messaging. Overall stable (< 50% elevated) 12/14/20237309-ZIW-ebkrlxq stable (< 50% elevated) Last Assessment & [...] and folate levels and referral to a software development leader. If hemoglobin levels are below 8 g/dl, we recommend Maternal Medicine ultrasound for growth every 4 weeks after 24 weeks. Consider a blood transfusion if hemoglobin levels fall below 6 g/dL. ([employer] Shut Off Worker Practice Bulletin Number 95, October,). Consider Venofer [...] as of this encounter (statuses as of 12/21/2023) Resolved Problems Problem Noted Date Diagnosed Date Resolved Date GBS (group B Streptococcus c arrier), +RV culture, currently 03/26/2021 05/17/2023 , normal first 09/10/202005/05 Class 2 obesity 09/10/2020 11/07/2023 Overview: Early glucola Growth u/s every 4 weeks after 20wk Binge eating disorder 06/02/20182023 Overweight (BMI 25.0-29.9) 07/03/2011 1 05/21/2017 Overview: BMI= 28.72 07/03/11 documented as of this encounter (statuses as of 12/21/2023) Immunizations Name Administration Dates Next Due DTaP [...] money to get more. Never true 05/11/2023 [place] Depression Scale Answer Date Recorded [place] Depression Scale Total 4 05/18/2023 The thought [...] No 05/11/2023 Does the household have a [facility] source of income? (Household - for ages [...] encounter Miscellaneous Notes * Telephone Encounter - Mala Tang RDN - 12/21/2023 10:11 AM EDT Attempted to contact pt to follow-up after GDM follow-up from December 01. Left message on pt's voicemail. Encouraged her to contact me if any questions or concerns arise. Mala Tang RDN, Clinical Dietitian II, [facility] Clinical Nutrition Services [facility] [address] [place] [id number] Available via Fanmode Portal documented in this encounter Plan of Treatment Upcoming Encounters Date Type Department Care Team (Late st Contact Info) Description 12/22/2023 3:00 PM EDT Imaging Radiology [facility] [address] [facility] [place] [address] 12/22/2023 3:45 PM EDT Office Visit Gynecology/Obstetrics [facility] [address] [place] [address] Katie Nunn PA-C [address] [place] [address] 12/29/2023 3:00 PM EDT Imaging Radiology [facility] [address] [facility] [place] [address] 12/29/2023 3:45 PM EDT Office Visit Gynecology/Obstetrics [facility] [address] [place] [address] Katie Nunn PA-C [address] [place] [address] 01/04/2024 2:45 PM EDT Imaging Radiology [facility] 2nd Floor, [place] [address] [place] [address] 01/04/2024 3:15 PM EDT Office Visit Gynecology/Obstetrics [facility] Zhong [address] [place] [address] Aurora Stewart CRNP [address] [place] [address] Health Maintenance Due Date Last Done Comments [...] documented as of this encounter Care Teams Manager Hydraulic Relationship Specialty Start Date End Date Aruna Yoo DO [address] [place], [place] [address] PCP - General Family Medicine 02/08/11 documented as of this encounter
--- OUTSIDE RECORDS SUMMARY | 2023-12-29 12:09 | External Medical Summary | Summary of Care ---
Author Name Unknown Organization [facility] Address [address] [facility] [place] [address] Phone [phone] Care Team Providers Care Pediatric Speech Therapist Name Role Phone Aruna Yoo DO Primary Care Provider Reason for Visit * Reason Onset Date Comments Appointment 11/16/2023 Encounter Details Date Type Department Care Team (Late st Contact Info) Description 11/16/2023 Telephone Gynecology/Obstetrics [facility] [address] [place] [address] Rosalba Bustamante CRNP [address] [place] [address] Appointment Allergies Active Allergy Reactions Criticality Noted Date Comments Gluten Meal 11/18/2016 documented as of this encounter (statuses as of 11/17/2023) Medications Medication Sig Dispensed Refills Start Date [...] C once per day, Reported on 10/27/2023 [employer] Verio Flex System w/Device KitIndications:Gesta tional diabetes mellitus (GDM) in second trimester, gestational diabetes method of control unspecified Use to test blood sugars 4 times daily (fasting, 1 hour after breakfast, lunch, and dinner) 1 Kit 10/13/2023 Active [employer] DelNeuronetrix Lancets 30GIndications:Gesta tional diabetes mellitus (GDM) in second trimester, gestational diabetes method of control unspecified Use to test blood sugars 4 times daily (fasting, 1 hour after breakfast, lunch, and dinner) 200 Each 6 10/13/2023 Active Sulia In Vitro Strip (Glucose Blood)Indications:Di et controlled gestational diabetes mellitus (GDM) in third trimester Monitor blood sugar four times daily (once fasting & 1 hour after breakfast, lunch, and dinner). 150 Strip 6 11/07/2023 Active Insulin Glargine Solostar 100 UNIT/ML Subcutaneous Solution Pen-injector (Lantus SoloStar)Indications :Insulin controlled gestational diabetes mellitus (GDM) in third trimester Inject 10 Units under the skin at bedtime. 9 mL 3 11/16/2023 Active BD Pen Needle Mini U/F 31G X 5 MM (Insulin Pen Needle)Indications:I nsulin controlled gestational diabetes mellitus (GDM) in third trimester Use with insulin once daily 100 Each 3 11/16/2023 Active documented as of this encounter (statuses as of 11/17/2023) Active Problems Problem Noted Date Diagnosed Date [...] four times per day and report to MFM for ongoing management. Lab Results Component Value [...] twice weekly NSTs 2x/wk NSTs, deliver 39.0-30.6 Last Assessment & Plan: Working with [facility]. She has appt today with dye range operator. Discussed blood sugar goals and management in [...] and folate levels and referral to a hire car driver. If hemoglobin levels are below 8 g/dl, we recommend Maternal Medicine ultrasound for growth every 4 weeks after 24 weeks. Consider a blood transfusion if hemoglobin levels fall below 6 g/dL. ([employer] Flight Teacher Practice Bulletin Number 95, October,). Consider Venofer [...] as of this encounter (statuses as of 11/17/2023) Resolved Problems Problem Noted Date Diagnosed Date Resolved Date GBS (group B Streptococcus c arrier), +RV culture, currently 03/26/2021 05/17/2023 , normal first 09/10/202005/05 Class 2 obesity 09/10/2020 11/07/2023 Overview: Early glucola Growth u/s every 4 weeks after 20wk Binge eating disorder 06/02/20182023 Overweight (BMI 25.0-29.9) 07/03/2011 1 05/21/2017 Overview: BMI= 28.72 07/03/11 documented as of this encounter (statuses as of 11/17/2023) Immunizations Name Administration Dates Next Due DTaP [...] money to get more. Never true 05/11/2023 [place] Depression Scale Answer Date Recorded [place] Depression Scale Total 4 05/18/2023 The thought [...] encounter Miscellaneous Notes * Telephone Encounter - Gloria Jones OSA - 11/17/2023 8:34 AM EDT LMOM with appt info * Telephone Encounter - Rosalba Bustamante CRNP - 11/17/2023 8:04 AM EDT Pt has not read MyG. Please call with info. CHARISSE Galindo * Telephone Encounter - Rosalba Bustamante CRNP - 11/16/2023 11:32 AM EDT Pt recently started on insulin for GDM, will need to start twice weekly NSTs starting this week. Please schedule, thanks! CHARISSE Galindo documented in this encounter Plan of Treatment Upcoming Encounters Date Type Department Care Team (Late st Contact Info) Description 11/18/2023 10:45 AM EDT Office Visit Gynecology/Obstetrics Od[facility] Zhong [address] [place] [address] Aurora Stewart CRNP [address] [place] [address] Trevin, Non Stress Tests Daija [address] [place] [address] 11/22/2023 11:15 AM EDT Office Visit Gynecology/Obstetrics Odilia Garzas [address] [place] [address] Aurora Stewart CRNP [address] [place] [address] Trevin Non Stress Tests Daija [address] [place] [address] 11/22/2023 3:45 PM EDT Office Visit Gynecology/Obstetrics Od[facility] Zhong [address] [place] [address] Katie Nunn PA-C [address] [place] [address] 11/25/2023 10:45 AM EDT Office Visit Gynecology/Obstetrics Odilia Garzas [address] [place] [address] Katie Nunn PA-C [address] [place] [address] Trevin Non Stress Tests Daija [address] [place] [address] 11/29/2023 11:15 AM EDT Office Visit Gynecology/Obstetrics Odilia Zhong [address] [place] [address] Aurora Stewart CRNP [address] [place] [address] Tre[place] [address] 12/02/2023 10:30 AM EDT Nutrition Services Nutrition, [address] [place] [address] Mala Tang RDN [address] [place] [address] 12/02/2023 3:00 PM EDT Office Visit Veterinary Surgeon Obstetrics [facility] [place] [address] [place] [address] Sage Block, [address] [place] [address] 12/02/2023 3:00 PM EDT Imaging Radiology [facility] [address] [place] [address] 12/06/2023 9:00 AM EDT Office Visit Gynecology/Obstetrics Od[facility] Zhong [address] [place] [address] Katie Nunn PA-C [address] [place] [address] [place] [address] Trevin [place] [address] 12/06/2023 3:45 PM EDT Office Visit Gynecology/Obstetrics [facility] [address] [place] [address] Katie Nunn PA-C [address] [place] [address] [place] [address] 12/09/2023 1:15 PM EDT Office Visit Gynecology/Obstetrics [facility] [address] [place] [address] Aurora Stewart CRNP [address] [place] [address] Zhong, Non Stress Tests Daija [address] [place] [address] 12/13/2023 8:30 AM EDT Office Visit Gynecology/Obstetrics [facility] [address] [place] [address] Rosalba Bustamante CRNP [address] [place] [address] 12/13/2023 9:30 AM EDT Office Visit Gynecology/Obstetrics [facility] [address] [place] [address] Aurora Stewart CRNP [address] [place] [address] Zhong, Non Stress Tests Daija [address] [place] [address] 12/16/2023 10:00 AM EDT Office Visit Gynecology/Obstetrics [facility] [address] [place] [address] Aurora Stewart CRNP [address] [place] [address] Zhong, Non Stress Tests Daija [address] [place] [address] 12/20/2023 11:00 AM EDT Office Visit Gynecology/Obstetrics [facility] [address] [place] [address] Rosalba Bustamante CRNP [address] [place] [address] Zhong, Non Stress Tests Daija [address] [place] [address] 12/22/2023 3:45 PM EDT Office Visit Gynecology/Obstetrics [facility] [address] [place] [address] Katie Nunn PA-C [address] [place], [place] [address] [address] 12/23/2023 10:00 AM EDT Office Visit Gynecology/Obstetrics [facility] [address] [place] [address] Aurora Stewart CRNP [address] [place] [address] Trevin, Non Stress Tests Daija [address] [place] [address] 12/27/2023 9:30 AM EDT Office Visit Gynecology/Obstetrics [facility] [address] [place] [address] Aurora Stewart CRNP [address] [place] [address] Zhong, Non Stress Tests Daija [address] [place] [address] 12/29/2023 3:45 PM EDT Office Visit Gynecology/Obstetrics [facility] [address] [place] [address] Katie Nunn PA-C [address] [place] [address] 12/30/2023 10:00 AM EDT Office Visit Gynecology/Obstetrics [facility] [address] [place] [address] Aurora Stewart CRNP [address] [place] [address] Trevin, Non Stress Tests Daija [address] [place] [address] 01/03/2024 9:00 AM EDT Office Visit Gynecology/Obstetrics [facility] [address] [place] [address] Katie Nunn PA-C [address] [place] [address] Trevin, Non Stress Tests Daija [address] [place] [address] 01/04/2024 3:15 PM EDT Office Visit Gynecology/Obstetrics [facility] [address] [place] [address] Aurora Stewart CRNP [address] [place] [address] 01/06/2024 10:00 AM EDT Office Visit Gynecology/Obstetrics [facility] [address] [place] [address] Aurora Stewart CRNP [address] [place] [address] Trevin, Non Stress Tests Daija [address] [place] [address] Health Maintenance Due Date Last Done Comments HPV/Co-Test 02/02/2018 Depression Monitoring 05/25/2020 05/25/2019 Diabetes Screening 06/09/2021 06/09/2018 COVID-19 Vaccine (2022-24 season) 2022 Influenza Vaccine (FLU shot) (#1) 2023 Cervical Cancer Screening 09/01/2024 Pap Smear 09/01/2024 09/01/2021, 01/03, 11/19/2015, Additional history exists DTaP,Tdap,and Td Vaccines (9 - Td or Tdap) 10/10/2033 [...] documented as of this encounter Care Teams Pediatric Speech Therapist Relationship Specialty Start Date End Date Aruna Yoo DO [address] [place] [address] PCP - General Family Medicine 02/08/11 documented as of this encounter
--- OUTSIDE RECORDS SUMMARY | 2023-12-29 12:09 | External Medical Summary | Summary of Care ---
Author Name Unknown Organization [facility] Address [address] [facility] [place] [address] Phone [phone] Care Team Providers Care Decorator Street And Building Name Role Phone Aruna Yoo DO Primary Care Provider Encounter Details Date Type Department Care Team (Latest Contact Info) Description 11/22/2023 11:15 AM EDT Office Visit Gynecology/Obstetric s Odilia Zhong [address] [place] [address] Demetrius Dhaliwal CRNP [address] [place] [address] Trevin Non Stress Tests Daija [address] [place] [address] Multigravida of advanced maternal age in third trimester*; History of PCOS; Supervision of high-risk , third trimester; Obesity in , antepartum; Anxiety during ; Group B Streptococcus urinary tract infection affecting , antepartum; Insulin controlled gestational diabetes mellitus (GDM) in third trimester; Antepartum anemia complicating Allergies Active Allergy Reactions Criticality Noted Date Comments Gluten Meal 11/18/2016 documented as of this encounter (statuses as of 11/22/2023) Medications Medication Sig Dispensed Refills Start Date [...] C once per day, Reported on 10/27/2023 [facility] Flex System w/Device KitIndications:Gesta tional diabetes mellitus (GDM) in second trimester, gestational diabetes method of control unspecified Use to test blood sugars 4 times daily (fasting, 1 hour after breakfast, lunch, and dinner) 1 Kit 10/13/2023 Active Known Delica Lancets 30GIndications:Gesta tional diabetes mellitus (GDM) in second trimester, gestational diabetes method of control unspecified Use to test blood sugars 4 times daily (fasting, 1 hour after breakfast, lunch, and dinner) 200 Each 6 10/13/2023 Active [facility] In Vitro Strip (Glucose Blood)Indications:Di et controlled [...] at bedtime. 9 mL 3 11/16/2023 Active Additional Information Patient not taking.Reported on 11/18/2023 BD Pen Needle Mini U/F 31G X 5 MM (Insulin Pen Needle)Indications:I nsulin controlled gestational diabetes mellitus (GDM) in third trimester Use with insulin once daily 100 Each 3 11/16/2023 Active documented as of this encounter (statuses as of 11/22/2023) Active Problems Problem Noted Date Diagnosed Date [...] four times per day and report to [facility] for ongoing management. Lab Results Component [...] with ADAPT. She has appt today with turner machine. Discussed blood sugar goals and management in [...] and folate levels and referral to a publications sales representative. If hemoglobin levels are below 8 g/dl, we recommend Maternal Medicine ultrasound for growth every 4 weeks after 24 weeks. Consider a blood transfusion if hemoglobin levels fall below 6 g/dL. ([employer] [facility] Bulletin Number 95, October,). Consider Venofer [...] as of this encounter (statuses as of 11/22/2023) Resolved Problems Problem Noted Date Diagnosed Date Resolved Date GBS (group B Streptococcus c sera), +RV culture, currently 03/26/2021 05/17/2023 , normal first 09/10/202005/05 Class 2 obesity 09/10/2020 11/07/2023 Overview: Early glucola Growth u/s every 4 weeks after 20wk Binge eating disorder 06/02/20182023 Overweight (BMI 25.0-29.9) 07/03/2011 1 05/21/2017 Overview: BMI= 28.72 07/03/11 documented as of this encounter (statuses as of 11/22/2023) Immunizations Name Administration Dates Next Due DTaP [...] money to get more. Never true 05/11/2023 [place] Depression Scale Answer Date Recorded [place] Depression Scale Total 4 05/18/2023 The thought [...] No 05/11/2023 Does the household have a [facility] source of income? (Household - for ages [...] Sign Reading Time Taken Comments Blood Pressure 112/70 11/22/2023 11:54 AM EDT Pulse - - Temperature - - Respiratory Rate - - Oxygen Saturation - - Inhaled Oxygen Concentration - - Weight 102.5 kg (226 lb) 11/22/2023 11:54 AM EDT Height 157.5 cm (5' 2") 11/22/2023 11:54 AM EDT Body Mass Index 41.34 11/22/2023 11:54 AM EDT documented in this encounter Progress Notes * Demetrius Dhaliwal CRNP - 11/22/2023 12:13 PM EDT ASSESSMENT assessment with Non-stress Test completed on 11/22/2023 at 33.4weeks gestation for indication of gestational diabetes mellitus on insulin heart baseline: 130 bpm Variability: Moderate Decelerations: absent Accelerations: present Contractions: None NST start time: 1448 NST stop time: 1533 NST strip reviewed, interpreted, and approved by OB provider, CHARISSE Alejandro. NST strip stored in clinic storage file documented in this encounter Miscellaneous Notes * Addendum Note - Demetrius Dhaliwal CRNP - 11/22/2023 12:45 PM EDTAddended by: DEMETRIUS DHALIWAL on: 11/22/2023 12:45 PM Modules accepted: Orders documented in this encounter Plan of Treatment Upcoming Encounters Date Type Department Care Team (Late st Contact Info) Description 11/25/2023 10:45 AM EDT Office Visit Gynecology/Obstetrics Odilia Zhong [address] [place] [address] Katie Nunn PA-C [address] [place] [address] [place] [address] Jyoti Zhong Stress Tests Daija [address] [place] [address] 12/02/2023 10:30 AM EDT Nutrition Services Nutrition, Daija Zhong [address] [place] [address] Mala Tang RDN [address] [place] [address] 12/02/2023 3:00 PM EDT Office Visit Meteorology Professor Obstetrics Maternal Medicine, [place] [address] [place] [address] Sage Block, [address] [place] [address] 12/02/2023 3:00 PM EDT Imaging Radiology [facility], [place] [address] [place] [address] 12/06/2023 3:00 PM EDT Imaging Radiology [facility] [address] [facility] [place] [address] 12/06/2023 3:45 PM EDT Office Visit Gynecology/Obstetrics [facility] [address] [facility] [place] [address] Katie Nunn PA-C [address] [place] [address] 12/13/2023 7:45 AM EDT Imaging Radiology [facility] [address] [facility] [place] [address] 12/13/2023 8:30 AM EDT Office Visit Gynecology/Obstetrics [facility] [address] [facility] [place] [address] Rosalba Bustamante CRNP [address] [facility] [place] [address] 12/22/2023 3:00 PM EDT Imaging Radiology [facility] [address] [facility] [place] [address] 12/22/2023 3:45 PM EDT Office Visit Gynecology/Obstetrics [facility] [address] [facility] [place] [address] Katie Nunn PA-C [address] [place] [address] 12/29/2023 3:00 PM EDT Imaging Radiology [facility] [address] [place] [address] 12/29/2023 3:45 PM EDT Office Visit Gynecology/Obstetrics [facility] [address] [place] [address] Katie Nunn PA-C [address] [place] [address] 01/04/2024 2:45 PM EDT Imaging Radiology [facility] 2nd Floor, [place] [address] [place] [address] 01/04/2024 3:15 PM EDT Office Visit Gynecology/Obstetrics [facility] [address] [place] [address] Demetrius Dhaliwal CRNP [address] [place] [address] Scheduled Orders Name Type Priority Associated Diagnoses Orde r Schedule US BPP W/O NON-STRESS TEST Medical Imaging Routine Insulin controlled gestational diabetes mellitus (GDM) in third trimester Expected: 12/06/2023 (Approximate), Expires: 12/22/2024 US BPP W/O NON-STRESS TEST Medical Imaging Routine Insulin controlled gestational diabetes mellitus (GDM) in third trimester Every Week for 6 Occurrences starting 11/22/2023 until 02/22/2024 Health Maintenance Due Date Last Done Comments [...] as of this encounter Visit Diagnoses Diagnosis Multigravida of advanced maternal age in third trimester- Primary History of PCOS Personal history of other genital system and obstetric disorders Supervision of high-risk , third trimester Obesity in , antepartum Obesity complicating , childbirth, or the puerperium, antepartum condition or complication Anxiety during Group B Streptococcus urinary tract infection affecting , antepartum Insulin controlled gestational diabetes mellitus (GDM) in third trimester Antepartum anemia complicating Anemia, antepartum documented in this encounter Additional Health Concerns Active Problems Noted Date Diagnosed Date OB Reminders 10/23/2023 documented as of this encounter Care Teams Decorator Street And Building Relationship Specialty Start Date End Date Aruna Yoo DO [address] [place] [address] PCP - General Family Medicine 02/08/11 documented as of this encounter
--- OUTSIDE RECORDS SUMMARY | 2023-12-29 12:09 | External Medical Summary | Summary of Care ---
Author Name Unknown Organization [facility] Address [address] [facility] [place] [address] Phone [phone] Care Team Providers Care Safety Counselor Name Role Phone Aruna Yoo DO Primary Care Provider Encounter Details Date Type Department Care Team (Latest Contact Info) Description 11/22/2023 11:15 AM EDT Office Visit Gynecology/Obstetric s Odilia Zhong [address] [place] [address] Aurora Stewart CRNP [address] [place] [address] Trevin Non Stress Tests Daija [address] [place] [address] Multigravida of advanced maternal age in third [...] C once per day, Reported on 10/27/2023 [employer] Flex System w/Device KitIndications:Gesta tional diabetes mellitus (GDM) in second trimester, gestational diabetes method of control unspecified Use to test blood sugars 4 times daily (fasting, 1 hour after breakfast, lunch, and dinner) 1 Kit 10/13/2023 [employer] Delica Lancets 30GIndications:Gesta tional diabetes mellitus (GDM) in second trimester, gestational diabetes method of control unspecified Use to test blood sugars 4 times daily (fasting, 1 hour after breakfast, lunch, and dinner) 200 Each 6 10/13/2023 Active [employer] In Vitro Strip (Glucose Blood)Indications:Di et controlled [...] four times per day and report to [facility] for ongoing management. Lab Results Component [...] with ADAPT. She has appt today with coding educator. Discussed blood sugar goals and management [...] and folate levels and referral to a noodle maker. If hemoglobin levels are below 8 g/dl, we recommend Maternal Medicine ultrasound for growth every 4 weeks after 24 weeks. Consider a blood transfusion if hemoglobin levels fall below 6 g/dL. ([employer] [facility] [employer] Practice Bulletin Number 95, October,). Consider [...] money to get more. Never true 05/11/2023 [place] Depression Scale Answer Date Recorded [place] Depression Scale Total 4 05/18/2023 The thought [...] No 05/11/2023 Does the household have a [facility] source of income? (Household - for [...] documented in this encounter Progress Notes * Aurora Stewart CRNP - 11/22/2023 12:13 PM EDT ASSESSMENT [...] clinic storage file documented in this encounter Plan of Treatment Upcoming Encounters Date Type Department Care Team (Late st Contact Info) Description 11/25/2023 10:45 AM EDT Office Visit Gynecology/Obstetrics Odilia Zhong [address] [place] [address] Katie Nunn PA-C [address] [place] [address] Jyoti Zhong Stress Tests Daija [address] [place] [address] 12/02/2023 10:30 AM EDT Nutrition Services Nutrition, Daija Zhong [address] [place] [address] Mala Tang RDN [address] [place] [address] 12/02/2023 3:00 PM EDT Office Visit Occupational Therapy Teacher Obstetrics Maternal Medicine, [address] [address] Sage Block DO [address] [place] [address] 12/02/2023 3:00 PM EDT Imaging Radiology [place] [address] [address] [facility] [place] [address] 12/06/2023 3:00 PM EDT Imaging Radiology [facility] [address] [facility] [place] [address] 12/06/2023 3:45 PM EDT Office Visit Gynecology/Obstetrics [facility] [address] [facility] [place] [address] Katie Nunn PA-C [address] [place] [address] 12/13/2023 7:45 AM EDT Imaging Radiology [facility] [address] [facility] [place] [address] 12/13/2023 8:30 AM EDT Office Visit Gynecology/Obstetrics [facility] [address] [facility] [place] [address] Rosalba Bustamante CRNP [address] [facility] [place] [address] 12/22/2023 3:00 PM EDT Imaging Radiology [facility] [address] [facility] [place] [address] 12/22/2023 3:45 PM EDT Office Visit Gynecology/Obstetrics [facility] [address] [facility] [place] [address] Katie Nunn PA-C [address] [place] [address] 12/29/2023 3:00 PM EDT Imaging Radiology [facility] [address] [facility] [place] [address] 12/29/2023 3:45 PM EDT Office Visit Gynecology/Obstetrics [facility] [address] [facility] [place] [address] Katie Nunn PA-C [address] [place] [address] 01/03/2024 9:00 AM EDT Office Visit Gynecology/Obstetrics Odilia Zhong [address] [place] [address] Katie Nunn PA-C [address] [place] [address] Zhong, Non Stress Tests Daija [address] [place] [address] 01/04/2024 3:15 PM EDT Office Visit Gynecology/Obstetrics Odilia Zhong [address] [place] [address] Aurora Stewart CRNP [address] [place] [address] 01/06/2024 10:00 AM EDT Office Visit Gynecology/Obstetrics Odilia Zhong [address] [place] [address] Aurora Stewart CRNP [address] [place] [address] Trevin, Non Stress Tests Daija [address] [place] [address] Scheduled Orders Name Type Priority Associated Diagnoses Orde r Schedule US BPP W/O NON-STRESS TEST Medical Imaging Routine Insulin controlled gestational diabetes mellitus (GDM) in third trimester Expected: 12/06/2023 (Approximate), Expires: 12/22/2024 Health Maintenance Due Date Last Done Comments [...] Author Reminders Care Plan OB Reminders No Francia, Provider documented as of this encounter Medical [...] documented as of this encounter Care Teams Safety Counselor Relationship Specialty Start Date End Date Aruna Yoo DO [address] [place] [address] PCP - General Family Medicine 02/08/11 documented as of this encounter
--- OUTSIDE RECORDS SUMMARY | 2023-12-29 12:09 | External Medical Summary | Summary of Care ---
Author Name Unknown Organization [facility] Address [address] [facility] [place] [address] Phone [phone] Care Team Providers Care Labeling Strategist Name Role Phone Aruna Yoo DO Primary Care Provider Reason for Visit * Reason Onset Date Comments Appointment 11/16/2023 Encounter Details Date Type Department Care Team (Late st Contact Info) Description 11/16/2023 Telephone Gynecology/Obstetrics [facility] [address] [place] [address] Rosalba Bustamante CRNP [address] [place] [address] Appointment Allergies Active Allergy Reactions Criticality Noted [...] C once per day, Reported on 10/27/2023 [employer] Verio Flex System w/Device KitIndications:Gesta tional diabetes mellitus (GDM) in second trimester, gestational diabetes method of control unspecified Use to test blood sugars 4 times daily (fasting, 1 hour after breakfast, lunch, and dinner) 1 Kit 10/13/2023 Active [employer] DelCardStar Lancets 30GIndications:Gesta tional diabetes mellitus (GDM) in second trimester, gestational diabetes method of control unspecified Use to test blood sugars 4 times daily (fasting, 1 hour after breakfast, lunch, and dinner) 200 Each 6 10/13/2023 Active [employer] In Vitro Strip (Glucose Blood)Indications:Di et controlled [...] with ADAPT. She has appt today with ict educator. Discussed blood sugar goals and management [...] and folate levels and referral to a transformer tester. If hemoglobin levels are below 8 g/dl, we recommend Maternal Medicine ultrasound for growth every 4 weeks after 24 weeks. Consider a blood transfusion if hemoglobin levels fall below 6 g/dL. ([employer] Practice Bulletin Number 95, October,). Consider Venofer [...] money to get more. Never true 05/11/2023 [place] Depression Scale Answer Date Recorded [place] Depression Scale Total 4 05/18/2023 The thought [...] Zhong [address] [place] [address] Aurora Stewart CRNP [address] [place] [address] Trevin, Non Stress Tests Daija [address] [place] [address] 11/22/2023 11:15 AM EDT Office Visit Gynecology/Obstetrics Odilia Garzas [address] [place] [address] Aurora Stewart CRNP [address] [place] [address] Trevin Non Stress Tests Daija [address] [place] [address] 11/22/2023 3:45 PM EDT Office Visit Gynecology/Obstetrics Odilia Zhong [address] [place] [address] Katie Nunn PA-C [address] [place] [address] 11/25/2023 10:45 AM EDT Office Visit Gynecology/Obstetrics Odilia Garzas [address] [place] [address] Katie Nunn PA-C [address] [place] [address] Trevin Non Stress Tests Daija [address] [place] [address] 11/29/2023 11:15 AM EDT Office Visit Gynecology/Obstetrics Odilia Zhong [address] [place] [address] Aurora Stewart CRNP [address] [place] [address] Trevin [place] [address] 12/02/2023 10:30 AM EDT Nutrition Services Nutrition, [place] [address] Mala Tang RDN [address] [place] [address] 12/02/2023 3:00 PM EDT Office Visit Resident Physician Obstetrics Maternal Medicine, [place] [address] [place] [address] Sage Block, [address] [place] [address] 12/02/2023 3:00 PM EDT Imaging Radiology [facility] [address] [place] [address] 12/06/2023 9:00 AM EDT Office Visit Gynecology/Obstetrics Odilia Zhong [address] [place] [address] Katie Nunn PA-C [address] [place] [address] [place] [address] Trevin [place] [address] 12/06/2023 3:45 PM EDT Office Visit Gynecology/Obstetrics [facility]ong [address] [place] [address] Katie Nunn PA-C [address] [place] [address] [place] [address] 12/09/2023 1:15 PM EDT Office Visit Gynecology/Obstetrics [facility] Zhong [address] [place] [address] Aurora Stewart CRNP [address] [place] [address] Zhong, Non Stress Tests Daija [address] [place] [address] 12/13/2023 8:30 AM EDT Office Visit Gynecology/Obstetrics [facility] [address] [place] [address] Rosalba Bustamante CRNP [address] [place] [address] 12/13/2023 9:30 AM EDT Office Visit Gynecology/Obstetrics [facility] [address] [place] [address] Aurora Stewart CRNP [address] [place] [address] Zhong, Non Stress Tests Daija [address] [place] [address] 12/16/2023 10:00 AM EDT Office Visit Gynecology/Obstetrics [facility] [address] [place] [address] Aurora Stewart CRNP [address] [place] [address] Zhong, Non Stress Tests Daija [address] [place] [address] 12/20/2023 11:00 AM EDT Office Visit Gynecology/Obstetrics [facility]ong [address] [place] [address] Rosalba Bustamante CRNP [address] [place] [address] Zhong, Non Stress Tests Daija [address] [place] [address] 12/22/2023 3:45 PM EDT Office Visit Gynecology/Obstetrics [facility] Zhong [address] [place] [address] Katie Nunn PA-C [address] [place], [place] [address] [address] 12/23/2023 10:00 AM EDT Office Visit Gynecology/Obstetrics [facility]ong [address] [place] [address] Aurora Stewart CRNP [address] [place] [address] Trevin, Non Stress Tests Daija [address] [place] [address] 12/27/2023 9:30 AM EDT Office Visit Gynecology/Obstetrics [facility]ong [address] [place] [address] Aurora Stewart CRNP [address] [place] [address] Zhong, Non Stress Tests Daija [address] [place] [address] 12/29/2023 3:45 PM EDT Office Visit Gynecology/Obstetrics [facility] Zhong [address] [place] [address] Katie Nunn PA-C [address] [place] [address] 12/30/2023 10:00 AM EDT Office Visit Gynecology/Obstetrics [facility]ong [address] [place] [address] Aurora Stewart CRNP [address] [place] [address] Trevin, Non Stress Tests Daija [address] [place] [address] 01/03/2024 9:00 AM EDT Office Visit Gynecology/Obstetrics [facility] [address] [place] [address] Katie Nunn PA-C [address] [place] [address] Trevin, Non Stress Tests Daija [address] [place] [address] 01/04/2024 3:15 PM EDT Office Visit Gynecology/Obstetrics [facility]ong [address] [place] [address] Aurora Stewart CRNP [address] [place] [address] 01/06/2024 10:00 AM EDT Office Visit Gynecology/Obstetrics [facility]ong [address] [place] [address] Aurora Stewart CRNP [address] [place] [address] Trevin, Non Stress Tests Daija [address] [place] [address] Health Maintenance Due Date Last Done Comments [...] documented as of this encounter Care Teams Labeling Strategist Relationship Specialty Start Date End Date Aruna Yoo DO [address] [place] [address] PCP - General Family Medicine 02/08/11 documented as of this encounter
--- OUTSIDE RECORDS SUMMARY | 2023-12-29 12:09 | External Medical Summary | Summary of Care ---
Author Name Unknown Organization [facility] Address [address] [facility] [place] [address] Phone [phone] Care Team Providers Care Gis Software Developer Name Role Phone Aruna Yoo DO Primary Care Provider Reason for Visit * Reason Onset Date Comments Appointment 11/18/2023 Encounter Details Date Type Department Care Team (Late st Contact Info) Description 11/18/2023 Telephone Family Practice [facility] [place] [address] [facility] [place] [address] [facility] DO [facility] [address] Appointment Allergies Active Allergy Reactions Criticality Noted Date Comments Gluten Meal 11/18/2016 documented as of this encounter (statuses as of 11/23/2023) Medications Medication Sig Dispensed Refills Start Date End Date Status 19 Oral Tablet Take 1 Tablet by mouth in the morning. Active Pantoprazole Sodium 40 MG Oral Tablet Delayed Release (Protonix)Indication s:Gastroesophageal reflux disease TAKE 1 TABLET DAILY 90 Tablet 3 05/27/2023 Active Sertraline HCl 25 MG Oral Tablet (Zoloft) TAKE 1 TABLET DAILY 90 Tablet 3 07/04/2023 Active Breast PumpIndications:[place] st feeding status of mother Use as [...] C once per day, Reported on 10/27/2023 NKT The[employer] Flex System w/Device KitIndications:Gesta tional diabetes mellitus (GDM) in second trimester, gestational diabetes method of control unspecified Use to test blood sugars 4 times daily (fasting, 1 hour after breakfast, lunch, and dinner) 1 Kit 10/13/2023 Active [employer] Del[employer]oojet Lancets 30GIndications:Gesta tional diabetes mellitus (GDM) in second trimester, gestational diabetes method of control unspecified Use to test blood sugars 4 times daily (fasting, 1 hour after breakfast, lunch, and dinner) 200 Each 6 10/13/2023 Active [facility] In Vitro Strip (Glucose Blood)Indications:Di et controlled [...] as of this encounter (statuses as of 11/23/2023) Active Problems Problem Noted Date Diagnosed Date [...] four times per day and report to [facility] for ongoing management. Lab Results Component [...] with [facility]. She has appt today with community health educator. Discussed blood sugar goals and management [...] and folate levels and referral to a water pollution specialist. If hemoglobin levels are below 8 g/dl, we recommend Maternal Medicine ultrasound for growth every 4 weeks after 24 weeks. Consider a blood transfusion if hemoglobin levels fall below 6 g/dL. ([employer] Report [employer] Practice Bulletin Number 95, October,). Consider Venofer [...] as of this encounter (statuses as of 11/23/2023) Resolved Problems Problem Noted Date Diagnosed Date Resolved Date GBS (group B Streptococcus c arrier), +RV culture, currently 03/26/2021 05/17/2023 , normal first 09/10/202005/05 Class 2 obesity 09/10/2020 11/07/2023 Overview: Early glucola Growth u/s every 4 weeks after 20wk Binge eating disorder 06/02/20182023 Overweight (BMI 25.0-29.9) 07/03/2011 1 05/21/2017 Overview: BMI= 28.72 07/03/11 documented as of this encounter (statuses as of 11/23/2023) Immunizations Name Administration Dates Next Due DTaP [...] money to get more. Never true 05/11/2023 [place] Depression Scale Answer Date Recorded [place] Depression Scale Total 4 05/18/2023 The thought [...] encounter Miscellaneous Notes * Telephone Encounter - Suly Toribio MED ASSIST - 11/23/2023 8:30 AM EDT NSTs cancelled and BPPs scheduled with patient * Telephone Encounter - Hillary Salazar OSA - 11/18/2023 12:39 PM EDT Return for weekly BPP, shaunna in 2 weeks. Needs weekly bpp. Cancel NST'S Pt. Was insist ant on not canceling the NST'S and asked to get the scheduled father out. documented in this encounter Plan of Treatment Upcoming Encounters Date Type Department Care Team (Late st Contact Info) Description 12/02/2023 10:30 AM EDT [facility] [address] [place] [address] Mala Tang, REGINA [address] [place] [address] 12/02/2023 3:00 PM EDT Office Visit Equipment Maintenance Engineer Obstetrics Maternal Medicine, [place] [address] [place] [address] [address], [address] [place] [address] 12/02/2023 3:00 PM EDT [facility] [place] [address] [place] [address] 12/06/2023 3:00 PM EDT Imaging Radiology [facility] [address] [facility] [place] [address] 12/06/2023 3:45 PM EDT Office Visit Gynecology/Obstetrics [facility] [address] [place] [address] Katie Nunn PA-C [address] [place] [address] [place] [address] 12/13/2023 7:45 AM EDT Imaging Radiology [facility] [place] [address] 12/13/2023 8:30 AM EDT Office Visit Gynecology/Obstetrics [facility] [address] [facility] [place] [address] Rosalba Bustamante CRNP [address] [facility] [place] [address] 12/22/2023 3:00 PM EDT Imaging Radiology [facility] [address] [facility] [place] [address] 12/22/2023 3:45 PM EDT Office Visit Gynecology/Obstetrics [facility] [address] [place] [address] Katie Nunn PA-C [address] [place] [address] 12/29/2023 3:00 PM EDT Imaging Radiology [facility] [address] [place] [address] 12/29/2023 3:45 PM EDT Office Visit [facility]necology[facility] [address] [facility] [place] [address] Katie Nunn PA-C [address] [place] [address] 01/04/2024 2:45 PM EDT Imaging Radiology [facility] [address] [facility] [place] [address] 01/04/2024 3:15 PM EDT Office Visit Gynecology[facility] [place] [address] Aurora Stewart CRNP [address] [place] [address] Health Maintenance Due Date Last Done Comments [...] documented as of this encounter Care Teams Gis Software Developer Relationship Specialty Start Date End Date Aruna Yoo DO [address] [place] [address] PCP - General Family Medicine 02/08/11 documented as of this encounter
--- OUTSIDE RECORDS SUMMARY | 2023-12-29 12:09 | External Medical Summary | Summary of Care ---
Author Name Unknown Organization [facility] Address [address] [place] [address] Phone [phone] Care Team Providers Care Sommelier Name Role Phone Aruna Yoo DO Primary Care Provider Encounter Details Date Type Department Care Team (Late st Contact Info) Description 11/24/2023 Orders Only Rotary Shear Cutter Obstetrics Maternal Medicine, [place] [address] [place], [place] [id number] Jammie Velazquez CRNP [address] [place], [place] [id number] Insulin controlled gestational diabetes mellitus (GDM) in third trimester Allergies Active Allergy Reactions Criticality Noted Date Comments Gluten Meal 11/18/2016 documented as of this encounter (statuses as of 11/24/2023) Medications Medication Sig Dispensed Refills Start Date End Date Status 19 Oral Tablet Take 1 Tablet by mouth in the morning. Active Pantoprazole Sodium 40 MG Oral Tablet Delayed Release (Protonix)Indicat ions:Gastroesopha geal reflux disease TAKE 1 TABLET DAILY 90 Tablet 3 05/27/2023 Active Sertraline HCl 25 MG Oral Tablet (Zoloft) TAKE 1 TABLET DAILY 90 Tablet 3 07/04/2023 Active Breast PumpIndications:B reast feeding status of mother Use as directed. 1 Each 10/11/2023 Active Additional Information Patient not taking.Reported on 11/07/2023 Ferrous Sulfate 325 (65 Fe) MG Oral Tablet (Feosol)Indicatio ns:Antepartum anemia complicating Take 1 Tablet by mouth in the morning and 1 Tablet before bedtime. 60 Tablet 12 10/11/2023 Active Additional Information Patient taking differently:325 mg Oral BID (.AM/PM),Indications: Taking Vitron C once per day, Reported on 10/27/2023 [employer] Flex System w/Device KitIndications:Ge stational diabetes mellitus (GDM) in second trimester, gestational diabetes method of control unspecified Use to test blood sugars 4 times daily (fasting, 1 hour after breakfast, lunch, and dinner) 1 Kit 10/13/2023 Active [employer] Lancets 30GIndications:Ge stational diabetes mellitus (GDM) in second trimester, gestational diabetes method of control unspecified Use to test blood sugars 4 times daily (fasting, 1 hour after breakfast, lunch, and dinner) 200 Each 6 10/13/2023 Active [employer] In Vitro Strip (Glucose Blood)Indications :Diet controlled gestational diabetes mellitus (GDM) in third trimester Monitor blood sugar four times daily (once fasting & 1 hour after breakfast, lunch, and dinner). 150 Strip 6 11/07/2023 Active BD Pen Needle Mini U/F 31G X 5 MM (Insulin Pen Needle)Indication s:Insulin controlled gestational diabetes mellitus (GDM) in third trimester Use with insulin once daily 100 Each 3 11/16/2023 Active Insulin Glargine Solostar 100 UNIT/ML Subcutaneous Solution Pen-injector (Lantus SoloStar)Indicati ons:Insulin controlled gestational diabetes mellitus (GDM) in third trimester Inject 15 Units under the skin at bedtime. 9 mL 3 11/24/2023 Active Insulin Glargine Solostar 100 UNIT/ML Subcutaneous Solution Pen-injector (Lantus SoloStar)Indicati ons:Insulin controlled gestational diabetes mellitus (GDM) in third trimester Inject 10 Units under the skin at bedtime. 9 mL 3 11/16/2023 4 Discontinued documented as of this encounter (statuses as of 11/24/2023) Active Problems Problem Noted Date Diagnosed Date [...] times per day and report to [facility] for ongoing management. Lab Results Component Value [...] Increase Lantus to 15 units at bedtime. Last Assessment & Plan: Working with [facility]. She has appt today with parent educator. Discussed blood sugar goals and management [...] and folate levels and referral to a gang investigator. If hemoglobin levels are below 8 g/dl, we recommend Maternal Medicine ultrasound for growth every 4 weeks after 24 weeks. Consider a blood transfusion if hemoglobin levels fall below 6 g/dL. ([employer] Practice Bulletin Number 95, October,). Consider Venofer [...] as of this encounter (statuses as of 11/24/2023) Resolved Problems Problem Noted Date Diagnosed Date Resolved Date GBS (group B Streptococcus c arryordy), +RV culture, currently 03/26/2021 05/17/2023 , normal first 09/10/202005/05 Class 2 obesity 09/10/2020 11/07/2023 Overview: Early glucola Growth u/s every 4 weeks after 20wk Binge eating disorder 06/02/20182023 Overweight (BMI 25.0-29.9) 07/03/2011 1 05/21/2017 Overview: BMI= 28.72 07/03/11 documented as of this encounter (statuses as of 11/24/2023) Immunizations Name Administration Dates Next Due DTaP [...] money to get more. Never true 05/11/2023 [place] Depression Scale Answer Date Recorded [place] Depression Scale Total 4 05/18/2023 The thought [...] 05/11/2023 Does the household have a re lar source of income? (Household - for ages [...] on file documented as of this encounter Plan of Treatment Upcoming Encounters Date Type Department Care Team (Late st Contact Info) Description 12/02/2023 10:30 AM EDT Nutrition Services Nutrition, [facility] [address] [place] [address] Mala Tang RDN [address] [place] [address] 12/02/2023 3:00 PM EDT Office Visit Rotary Shear Cutter Obstetrics Maternal Medicine, [place] [address] [place] [address] [address] [place] [address] 12/02/2023 3:00 PM EDT [facility] [place] [address] [place] [address] 12/06/2023 3:00 PM EDT Imaging Radiology [facility] [address] [facility] [place] [address] 12/06/2023 3:45 PM EDT Office Visit Gynecology/Obstetrics [facility] [place] [address] Katie Nunn PA-C [address] [place] [address] 12/13/2023 7:45 AM EDT Imaging Radiology [facility] [address] [facility] [place] [address] 12/13/2023 8:30 AM EDT Office Visit Gynecology/Obstetrics [facility] [address] [facility] [place] [address] Rosalba Bustamante CRNP [address] [facility] [place] [address] 12/22/2023 3:00 PM EDT Imaging Radiology [facility] [address] [facility] [place] [address] 12/22/2023 3:45 PM EDT Office Visit Gynecology/Obstetrics [facility] [address] [facility] [place] [address] Katie Nunn PA-C [address] [place] [address] 12/29/2023 3:00 PM EDT Imaging Radiology [facility] [address] [facility] [place] [address] 12/29/2023 3:45 PM EDT Office Visit Gynecology/Obstetrics [facility] [address] [facility] [place] [address] Katie Nunn PA-C [address] [place] [address] [place] [address] 01/04/2024 2:45 PM EDT Imaging Radiology [facility] [place] [address] [facility] [place] [address] 01/04/2024 3:15 PM EDT Office Visit Gynecology/Obstetrics [facility] [address] [facility] [place] [address] Aurora Stewart CRNP [address] [facility] [place] [address] Health Maintenance Due Date Last Done Comments [...] gestational diabetes mellitus (GDM) in third trimester documented in this encounter Additional Health Concerns Active Problems Noted Date Diagnosed Date OB Reminders 10/23/2023 documented as of this encounter Care Teams Sommelier Relationship Specialty Start Date End Date Aruna Yoo DO [facility] [place] [address] PCP - General Family Medicine 02/08/11 documented as of this encounter
--- OUTSIDE RECORDS SUMMARY | 2023-12-29 12:09 | External Medical Summary | Summary of Care ---
Author Name Unknown Organization [facility] Address [address] [facility] [place] [address] Phone [phone] Care Team Providers Care Outpatient Coding Specialist Name Role Phone Aruna Yoo DO Primary Care Provider Reason for Visit * Reason Comments Return Visit Non Stress Test Encounter Details Date Type Department Care Team (Latest Contact Info) Description 11/18/2023 10:45 AM EDT Office Visit Gynecology/Obstetric s Benjamin'anika Zhong [address] [place] [address] Aurora Stewart CRNP [address] [place] [address] Trevin Non Stress Tests Daija [address] [place] [address] Supervision of high-risk , third trimester*; History [...] as of this encounter (statuses as of 11/18/2023) Medications Medication Sig Dispensed Refills Start Date [...] C once per day, Reported on 10/27/2023 Oriense Flex System w/Device KitIndications:Gesta tional diabetes mellitus (GDM) in second trimester, gestational diabetes method of control unspecified Use to test blood sugars 4 times daily (fasting, 1 hour after breakfast, lunch, and dinner) 1 Kit 10/13/2023 Active YouScribe Delica Lancets 30GIndications:Gesta tional diabetes mellitus (GDM) in second trimester, gestational diabetes method of control unspecified Use to test blood sugars 4 times daily (fasting, 1 hour after breakfast, lunch, and dinner) 200 Each 6 10/13/2023 Active Oriense In Vitro Strip (Glucose Blood)Indications:Di et controlled [...] as of this encounter (statuses as of 11/18/2023) Active Problems Problem Noted Date Diagnosed Date [...] four times per day and report to [facility] for ongoing management. Lab Results Component [...] with ADAPT. She has appt today with natural resources extension educator. Discussed blood sugar goals and management [...] and folate levels and referral to a rotary lithographic press operator. If hemoglobin levels are below 8 g/dl, we recommend Maternal Medicine ultrasound for growth every 4 weeks after 24 weeks. Consider a blood transfusion if hemoglobin levels fall below 6 g/dL. ([employer] Practice Bulletin Number 95, October,). Consider Venofer [...] 33 years-old at time of delivery (SCOOTER 10/4/24) She had low-risk genetic screening in this [...] as of this encounter (statuses as of 11/18/2023) Resolved Problems Problem Noted Date Diagnosed Date Resolved Date GBS (group B Streptococcus c sera), +RV culture, currently 03/26/2021 05/17/2023 , normal first 09/10/202005/05 Class 2 obesity 09/10/2020 11/07/2023 Overview: Early glucola Growth u/s every 4 weeks after 20wk Binge eating disorder 06/02/20182023 Overweight (BMI 25.0-29.9) 07/03/2011 1 05/21/2017 Overview: BMI= 28.72 07/03/11 documented as of this encounter (statuses as of 11/18/2023) Immunizations Name Administration Dates Next Due DTaP [...] money to get more. Never true 05/11/2023 Bend Depression Scale Answer Date Recorded Bend Depression Scale Total 4 05/18/2023 The [...] Sign Reading Time Taken Comments Blood Pressure 114/76 11/18/2023 11:09 AM EDT Pulse - - Temperature - - Respiratory Rate - - Oxygen Saturation - - Inhaled Oxygen Concentration - - Weight 102.5 kg (226 lb) 11/18/2023 11:09 AM EDT Height 157.5 cm (5' 2") 11/18/2023 11:09 AM EDT Body Mass Index 41.34 11/18/2023 11:09 AM EDT documented in this encounter Progress Notes * Aurora Stewart CRNP - 11/18/2023 11:48 AM EDT 33w Is going to be unable to make twice weekly NSTs d/t work schedule. Will be able to do weekly BPP and office visits. Discussed need for IOL by EDC, wants to schedule today. History of PP anxiety, was not on meds at that time, but is now. Feeling fine now. Discussed that this may be enough for her, but low threshold for increase if needed. ASSESSMENT assessment with Non-stress Test completed on 11/18/2023 at 33weeks gestation for indication ofgestational diabetes mellitus on insulin heart baseline: 130 bpm Variability: Moderate Decelerations: absent Accelerations: present Contractions: None NST start time: 1254 NST stop time: 1327 NST strip reviewed, interpreted, and approved by OB provider, CHARISSE Alejandro . NST strip stored in clinic storage file documented in this encounter Nursing Notes * Mamta Bergman LPN - 11/18/2023 11:27 AM EDT 33w0d NST, LINETTE Starting insulin tonight Denies concerns documented in this encounter Plan of Treatment Upcoming Encounters Date Type Department Care Team (Late st Contact Info) Description 11/22/2023 11:15 AM EDT Office Visit Gynecology/Obstetrics Odilia Zhong [address] [place] [address] Aurora Stewart CRNP [address] [place] [address] Trevin Non Stress Tests Daija [address] [place] [address] 11/22/2023 3:45 PM EDT Office Visit Gynecology/Obstetrics [facility] Zhong [address] [place] [address] Katie Nunn PA-C [address] [place] [address] 11/25/2023 10:45 AM EDT Office Visit Gynecology/Obstetrics Alexander's Zhong [address] [place] [address] Katie Nunn PA-C [address] [place] [address] Trevin Non Stress Tests Daija [address] [place] [address] 11/28/2023 9:30 AM EDT Office Visit Gynecology/Obstetrics [facility] Zhong [address] [place] [address] Aurora Stewart CRNP [address] [place] [address] Trevin Non Stress Tests Daija [address] [place] [address] 11/29/2023 11:15 AM EDT Office Visit Gynecology/Obstetrics [facility] Zhong [address] [place] [address] Aurora Stewart CRNP [address] [place] [address] Trevin, Non Stress Tests Daija [address] [place] [address] 11/30/2023 1:15 PM EDT Office Visit Gynecology/Obstetrics [facility] Zhong [address] [place] [address] Aurora Stewart CRNP [address] [place] [address] Trevin, Non Stress Tests Daija [address] [place] [address] 12/02/2023 10:30 AM EDT Nutrition Services Nutrition, Daija Zhong [address] [place], [place] [address] Mala Tang, REGINA [address] [place] [address] 12/02/2023 3:00 PM EDT Office Visit Senior Military Analyst Obstetrics Maternal Medicine, [place] [address] [place] [address] [facility], [address] [place] [address] 12/02/2023 3:00 PM EDT Imaging Radiology [facility], [place] [address] [place] [address] 12/06/2023 9:00 AM EDT Office Visit Gynecology/Obstetrics Odilia Zhong [address] [place] [address] Katie Nunn PA-C [address] [place] [address] Trevin, [place] [address] 12/06/2023 1:45 PM EDT Office Visit Gynecology/Obstetrics Odilia Zhong [address] [place] [address] Katie Nunn PA-C [address] [facility] [place] [address] Trevin Non Stress Tests Daija [address] [place] [address] 12/06/2023 3:45 PM EDT Office Visit Gynecology/Obstetrics Benjamin'anika Garzas [address] [place] [address] Katie Nunn PA-C [address] [place] [address] [place] [address] 12/08/2023 11:15 AM EDT Office Visit Gynecology/Obstetrics [facility] Zhong [address] [place] [address] Aurora Stewart CRNP [address] [place] [address] Trevin Non Stress Tests Diaja [address] [place] [address] 12/09/2023 1:15 PM EDT Office Visit Gynecology/Obstetrics Odilia Garzas [address] [place] [address] Aurora Stewart CRNP [address] [place] [address] Trevin Non Stress Tests Daija [address] [place] [address] 12/13/2023 8:30 AM EDT Office Visit Gynecology/Obstetrics Benjamin'anika Garzas [address] [place] [address] Rosalba Bustamante CRNP [address] [place] [address] 12/13/2023 9:30 AM EDT Office Visit Gynecology/Obstetrics Benjamin'anika Garzas [address] [place] [address] Aurora Stewart CRNP [address] [place] [address] Jyoti Zhong Stress Tests Daija [address] [place] [address] 12/16/2023 10:00 AM EDT Office Visit Gynecology/Obstetrics Odilia Garzas [address] [place] [address] Aurora Stewart CRNP [address] [place] [address] Jyoti Zhong Stress Tests Daija [address] [place] [address] 12/20/2023 11:00 AM EDT Office Visit Gynecology/Obstetrics Odilia Zhong [address] [place], [place] [address] Rosalba Bustamante CRNP [address] [place] [address] Joyti Zhong Stress Tests Daija [address] [place] [address] 12/22/2023 3:45 PM EDT Office Visit Gynecology/Obstetrics Odilia Zhong [address] [place] [address] Katie Nunn PA-C [address] [place] [address] [place] [address] 12/23/2023 10:00 AM EDT Office Visit Gynecology/Obstetrics Odilia Garzas [address] [place] [address] Aurora Stewart CRNP [address] [place] [address] Zhong, Non Stress Tests Daija [address] [place] [address] 12/27/2023 9:30 AM EDT Office Visit Gynecology/Obstetrics [facility] Zhong [address] [place] [address] Aurora Stewart CRNP [address] [place] [address] Zhong, Non Stress Tests Daija [address] [place] [address] 12/29/2023 3:45 PM EDT Office Visit Gynecology/Obstetrics Benjamin's Zhong [address] [place] [address] Katie Nunn PA-C [address] [place] [address] 12/30/2023 10:00 AM EDT Office Visit Gynecology/Obstetrics Bnejamin's Zhong [address] [place] [address] Aurora Stewart CRNP [address] [place] [address] Zhong, Non Stress Tests Daija [address] [place] [address] 01/03/2024 9:00 AM EDT Office Visit Gynecology/Obstetrics [facility] Zhong [address] [place] [address] Katie Nunn PA-C [address] [place] [address] Zhong, Non Stress Tests Daija [address] [place] [address] 01/04/2024 3:15 PM EDT Office Visit Gynecology/Obstetrics Odilia Zhong [address] [place] [address] Aurora Stewart CRNP [address] [place] [address] 01/06/2024 10:00 AM EDT Office Visit Gynecology/Obstetrics Odilia Zhong [address] [place] [address] Aurora Stewart CRNP [address] [place] [address] Zhong Non Stress Tests Daija [address] [place] [address] Scheduled Orders Name Type Priority Associated Diagnoses Orde r Schedule US BPP W/O NON-STRESS TEST Medical Imaging Routine Insulin controlled gestational diabetes mellitus (GDM) in third trimester Expected: 11/25/2023 (Approximate), Expires: 12/18/2024 Health Maintenance Due Date Last Done Comments [...] documented as of this encounter Care Teams Outpatient Coding Specialist Relationship Specialty Start Date End Date Aruna Yoo DO [address] [place] [address] PCP - General Family Medicine 02/08/11 documented as of this encounter
--- OUTSIDE RECORDS SUMMARY | 2023-12-29 12:09 | External Medical Summary | Summary of Care ---
Author Name Unknown Organization [facility] Address [address] [facility] [place] [address] Phone [phone] Care Team Providers Care Client Coordinator Name Role Phone Aruna Yoo DO Primary Care Provider Reason for Visit * Reason Comments Return Visit Non Stress Test Encounter Details Date Type Department Care Team (Late st Contact Info) Description 11/25/2023 10:15 AM EDT Office Visit Gynecology/Obstetri cs Odilia Zhong [address] [place] [address] Katie Nunn PA-C [address] [facility] [place] [address] Trevin Non Stress Tests Daija [address] [place] [address] Supervision of high-risk , third trimester*; History [...] as of this encounter (statuses as of 11/25/2023) Medications Medication Sig Dispensed Refills Start Date [...] C once per day, Reported on 10/27/2023 Cell>Point Flex System w/Device KitIndications:Gesta tional diabetes mellitus (GDM) in second trimester, gestational diabetes method of control unspecified Use to test blood sugars 4 times daily (fasting, 1 hour after breakfast, lunch, and dinner) 1 Kit 10/13/2023 Active Plickers Delica Lancets 30GIndications:Gesta tional diabetes mellitus (GDM) in second trimester, gestational diabetes method of control unspecified Use to test blood sugars 4 times daily (fasting, 1 hour after breakfast, lunch, and dinner) 200 Each 6 10/13/2023 Active Cell>Point In Vitro Strip (Glucose Blood)Indications:Di et controlled [...] as of this encounter (statuses as of 11/25/2023) Active Problems Problem Noted Date Diagnosed Date [...] four times per day and report to [facility] for ongoing management. Lab Results [...] bedtime. Last Assessment & Plan: Working with ELODIA. She has appt today with music educator. Discussed blood sugar goals and management [...] and folate levels and referral to a apparel manager. If hemoglobin levels are below 8 g/dl, we recommend Maternal Medicine ultrasound for growth every 4 weeks after 24 weeks. Consider a blood transfusion if hemoglobin levels fall below 6 g/dL. ([employer] Practice Bulletin Number 95, October,). Consider Venofer transfusions if patient labs supportive of iron deficiency anemia with dosing of 300 mg IV weekly x 3 weeks GBS (group B streptococcus) UTI complicating pre gnancy 05/23/2023 Supervision of high-risk , third [facility] 05/18/2023 Obesity in , antepartum 05/18/2023 Overview: Pre-gravid BMI 38.77 (#212, 5'2") Last Assessment & Plan: Has been following growth with radiology; will transition to [facility]. AMA (advanced maternal age) multigravida 35+ Overview: [...] as of this encounter (statuses as of 11/25/2023) Resolved Problems Problem Noted Date Diagnosed Date Resolved Date GBS (group B Streptococcus c sera), +RV culture, currently 03/26/2021 05/17/2023 , normal first 09/10/202005/05 Class 2 obesity 09/10/2020 11/07/2023 Overview: Early glucola Growth u/s every 4 weeks after 20wk Binge eating disorder 06/02/20182023 Overweight (BMI 25.0-29.9) 07/03/2011 1 05/21/2017 Overview: BMI= 28.72 07/03/11 documented as of this encounter (statuses as of 11/25/2023) Immunizations Name Administration Dates Next Due DTaP [...] money to get more. Never true 05/11/2023 Monroe Depression Scale Answer Date Recorded Monroe Depression Scale Total 4 05/18/2023 The thought [...] Sign Reading Time Taken Comments Blood Pressure 116/72 11/25/2023 11:43 AM EDT Pulse - - Temperature - - Respiratory Rate - - Oxygen Saturation - - Inhaled Oxygen Concentration - - Weight 103.5 kg (228 lb 3.2 oz) 024 11:43 AM EDT Height - - Body Mass Index 41.74 11/22/2023 11:54 AM EDT documented in this encounter Progress Notes * Suly Toribio MED ASSIST - 11/25/2023 11:43 AM EDT 34w0d Denies any concerns. Switching to weekly BPPs. * Katie Nunn PA-C - 11/25/2023 11:18 AM EDT Jane Tejada is a 33 year old female here for NST at 34w0d secondary to GDMA2. Her Estimated Date of Delivery: 01/06/24 REVIEW OF SYSTEMS She affirms movement. Denies vaginal bleeding, LOF, contractions. PHYSICAL EXAM Filed Vitals: 11/25/23 1143 BP: 116/72 Weight: 103.5 kg (228 lb 3.2 oz) ASSESSMENT assessment with Non-stress Test completed on 11/25/2023 at 34w0d weeks gestation for indication of gestational diabetes mellitus heart baseline: 130 bpm Variability: Moderate Decelerations: absent Accelerations: present Contractions: None NST start time: 1802 NST stop time: 1833 NST strip reviewed, interpreted, and approved by OB provider, Katie Nunn PA-C. Reviewed with Dr. Celestino MD. NST strip stored in clinic storage file Supervision of - labor precautions and kick counts reviewed RTO for scheduled NST/LINETTE appointments. Katie Nunn PA-C 11/25/2023 documented in this encounter Plan of Treatment Upcoming Encounters Date Type Department Care Team (Late st Contact Info) Description 12/02/2023 10:30 AM EDT Nutrition Services [facility], [address] [place] [address] Mala Tang, RDN [address] [place] [address] 12/02/2023 3:00 PM EDT Office Visit Greenhouse Transplanter Obstetrics Maternal Medicine, [place] [address] [place] [address] [facility], [address] [place] [address] 12/02/2023 3:00 PM EDT Imaging [facility] [place] [address] [place] [address] 12/06/2023 3:00 PM EDT Imaging Radiology [facility] [address] [place] [address] 12/06/2023 3:45 PM EDT Office Visit Gynecology/Obstetrics [facility] [address] [place] [address] Katie Nunn PA-C [address] [place] [address] 12/13/2023 7:45 AM EDT Imaging Radiology [facility] [address] [place] [address] 12/13/2023 8:30 AM EDT Office Visit Gynecology/Obstetrics [facility] [address] [place] [address] Rosalba Bustamante CRNP [address] [place] [address] 12/22/2023 3:00 PM EDT Imaging Radiology [facility] [address] [place] [address] 12/22/2023 3:45 PM EDT Office Visit Gynecology/Obstetrics [facility] [address] [place] [address] Katie Nunn PA-C [address] [place] [address] 12/29/2023 3:00 PM EDT Imaging Radiology [facility] [address] [facility] [place] [address] 12/29/2023 3:45 PM EDT Office Visit Gynecology/Obstetrics [facility] [address] [facility] [place] [address] Katie Nunn PA-C [address] [place] [address] 01/04/2024 2:45 PM EDT [facility] [address] [facility] [place] [address] 01/04/2024 3:15 PM EDT Office [facility] [address] Aurora Stewart CRNP 132 [facility] [place] [address] Health Maintenance Due Date Last Done Comments [...] documented as of this encounter Care Teams Client Coordinator Relationship Specialty Start Date End Date Aruna Yoo DO [address] [place] [address] PCP - General Family Medicine 02/08/11 documented as of this encounter
--- OUTSIDE RECORDS SUMMARY | 2023-12-29 12:09 | External Medical Summary | Summary of Care ---
Author Name Unknown Organization [facility] Address [address] [facility] [place] [address] Phone [phone] Care Team Providers Care Patient Care Specialist Name Role Phone Aruna Yoo DO Primary Care Provider Reason for Visit * Reason Comments DSMT Follow-Up Encounter Details Date Type Department Care Team (Latest Contact Info) Description 12/02/2023 10:30 AM EDT [facility] [address] [place] [address] Mala Tang RDN [address] [place] [id number] Gestational diabetes mellitus (GDM) in second trimester, gestational diabetes method of control unspecified [O24.419]*; Insulin controlled gestational diabetes mellitus (GDM) in third trimester; Obesity in , antepartum Allergies Active Allergy [...] DAILY 90 Tablet 3 07/04/2023 Active Breast PumpIndications:[place] st feeding status of mother Use as [...] C once per day, Reported on 10/27/2023 [facility] Flex System w/Device KitIndications:Gesta tional diabetes mellitus (GDM) in second trimester, gestational diabetes method of control unspecified Use to test blood sugars 4 times daily (fasting, 1 hour after breakfast, lunch, and dinner) 1 Kit 10/13/2023 Active [facility] Delica Lancets 30GIndications:Gesta tional diabetes mellitus (GDM) in second trimester, gestational diabetes method of control unspecified Use to test blood sugars 4 times daily (fasting, 1 hour after breakfast, lunch, and dinner) 200 Each 6 10/13/2023 Active [facility] In Vitro Strip (Glucose Blood)Indications:Di et controlled [...] four times per day and report to [facility] for ongoing management. Lab Results [...] lunch. Maternal medicine nurse practitioners to review Last Assessment & Plan: Working with [facility]. She has appt today with development educator. Discussed blood sugar goals and [...] and folate levels and referral to a hoist mechanic. If hemoglobin levels are below 8 g/dl, we recommend Maternal Medicine ultrasound for growth every 4 weeks after 24 weeks. Consider a blood transfusion if hemoglobin levels fall below 6 g/dL. ([employer] and Release Of Information Specialist Practice Bulletin Number 95, October,). Consider [...] following growth with radiology; will transition to MF. AMA (advanced maternal age) multigravida 35+ Overview: [...] money to get more. Never true 05/11/2023 [place] Depression Scale Answer Date Recorded [place] Depression Scale Total 4 05/18/2023 The thought [...] No 05/11/2023 Does the household have a [facility] source of income? (Household - for [...] Sign Reading Time Taken Comments Blood Pressure - - Pulse - - Temperature - - Respiratory Rate - - Oxygen Saturation - - Inhaled Oxygen Concentration - - Weight 103.1 kg (227 lb 3.2 oz) 024 10:35 AM EDT Height 157.5 cm (5' 2") 12/02/2023 10:3 5 AM EDT Body Mass Index 41.56 12/02/2023 10:35 AM EDT documented in this encounter Patient Instructions * Patient Instructions* Mala Tang RDN - 12/02/2023 10:58 AM EDT Participant will continue meal regimen and schedule of glucose checks. documented in this encounter Progress Notes * Mala Tang RDN - 12/02/2023 10:36 AM EDT DIABETES SELF-MANAGEMENT TRAINING/FOLLOW UP NOTE Name: Jane Tejada Date: 12/02/2023 Participant was seen face to face in the clinic. Last order of DIABETES MANAGEMENT EDUCATION (ADA) REFERRAL was found on 10/13/2023 from Telephone on10/11/2023 No order of CLINICAL NUTRITION AND DIABETES EDUCATION ANNUAL RENEWAL is found. No order of PEDIATRIC DIABETES MANAGEMENT EDUCATION (ADA) REFERRAL OP is found. ADA referral in place? Yes Participant scheduled for 1:1 training due to lack of classes scheduled within 2 months of appointment. What diabetes concerns and/or barriers to care would you like to discuss in your appointment: "It'sa lot to do" (notes she is tired). She wants to know what to do to bring elevated glucose levels down if they increase during remainder of her . 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 Topics from last visit to attempt to cover today: none Was behavior objective from last visit met at least 80% of the time: Nutrition: Yes Psychosocial Screening: Lately have you been feeling down, depressed or hopeless most of the day? No Sleep Health: Addressed - How many hours are you sleeping during the night? 7-8 hours Do you have difficulty falling or staying asleep? Yes Do you snore? Yes due to congestion Are you waking up during the night with symptoms of low glucose levels (shaky, sweaty, nightmares)?No Are you waking up during the night to urinate frequently? Yes Diabetes Medications: Lantus 15 units at bedtime Monitoring blood glucose, interpreting and using results Self-Monitoring Blood Glucose Source of Information: Participant brought meter/CGM Frequency of tests: daily FBS 85, 99, 92, 89, 91, 90 before insulin 90-100 Breakfast 99, 132, usually 100-130 Lunch 95, 114, 119, 123, 121, 115 Dinner 137, 98, 119, 133, 115, 139, 105, 135 Hypoglycemia?: No Diet: Breakfast: 2 eggs sometimes with meat or vegetables, 2 slices with butter, water Snacks: nuts or PB with a pretzel or yogurt Lunch: steak or chicken, rice, and vegetables, water Snacks: apple or fruit and nuts or PB or raw vegetables Dinner: chicken, mashed potatoes or other potato, vegetable or tacos on a corn tortilla with vegetables, water Snacks: apple or small rice cakes or chicken with lettuce on a corn tortilla or high-protein shake Drinks: water-plenty per participant Restaurant meals: rare Weight management review: Wt Readings from Last 6 Encounters: 12/02/23 103.1 kg (227 lb 3.2 oz) 11/25/23 103.5 kg (228 lb 3.2 oz) 11/22/23 102.5 kg (226 lb) 11/18/23 102.5 kg (226 lb) 11/07/23 103 kg (227 lb) 10/24/23 103.9 kg (229 lb) Weight changes since last visit: stable Physical Activity: Some walking ADA STANDARDS OF CARE/BUNDLE MEASURES Diabetes Bundle / Standards of Care: Gestational Diabetes Participant Therapy Management Plan: Hypertension: BP Readings from Last 3 Encounters: 11/25/23 116/72 11/22/23 112/70 11/18/23 114/76 Gestational Diabetes Participant, being monitored by PUPPET MAKER. Dyslipidemia: No results found for: "LDL" No components found for: "[id number]" Gestational Diabetes Mellitus Participant Kidney function review: Lab Results Component Value Date/Time ESTIMATED GLOMERULAR FILTRATION RATE - [facility] >90 10/11/2023 08:25 AM ESTIMATED GLOMERULAR FILTRATION RATE - [facility] >60.0 06/09/2018 08:56 AM No results found for: "ALBUMIN / CREATININE RATIO", "ALBUMIN / CREATININE RATIO, URINE - [facility]" No results found for: "PROTEIN/ CREATININE RATIO", "PROTEIN/ CREATININE RATIO, URINE - [facility]" Gestational Diabetes Mellitus Participant DSMT/Diabetes MNT Diagnosis: Self monitoring deficit related to elevated fasting glucose levels as evidenced by need for long-term insulin regimen. DSMT Follow-up Assessment of Content Areas: Choose the answer that represents the participant's competency in ONLY topics assessed from previous visit and addressed today. Areas taught today must correlate with intervention. If content area not assessed and/or intervened today, it will be deferred to future session. Incorporating nutrition management into lifestyle: Comprehends sofia points (3) Incorporating physical activity into lifestyle: Needs review (2) Using medications safely: Comprehends sofia points (3) Monitoring blood glucose, interpreting and using results: Comprehends sofia points (3) Prevention, detection, and treatment of chronic complications: Comprehends sofia points (3) DSMT/ Diabetes MNT intervention: Nutrition: Encouraged participant to monitor high-carb foods and how they affect her glucose levels. Suggested she aim for no more than 2 servings of high-carb foods at meals. Encouraged her to try alow-fat protein food such as cheese or lean meat or adding low-carb vegetables to her meals if she is still hungry and has met her carb limit. Physical Activity: Encouraged participant to do a short session of activity such as light walking to help elevated post prandial glucose levels decrease. Medication: Reviewed current insulin and action of it. Participant denies symptoms of hypoglycemia or low glucose levels. She verbalizes no issues giving it. States she tries to hum a tune when administering it to distract herself. She has been rotating sites of injection-abdomen. Monitoring: Encouraged participant to continue monitoring glucose levels and how they change after eating certain foods. States she tends to eat the same food over and over. Notes her levels can change even if she eats the same foods. States she has been setting an alarm to remind her to check her glucose levels after meals. Chronic Complications: Discussed importance of monitoring glucose levels to prevent complications with the baby. Participant Selected Behavioral Objective: Healthy coping: For help with diabetes control, I will continue meal regimen and schedule of glucose checks. Recommended Medication Changes: No changes. Education materials given to participant/caregiver and reviewed during today's visit: None given today Diabetes Self-Management Support: Apps/Smart Phone Technology: One Touch, Current Health Possible Future Topics: Content areas that were not assessed in prior visits: All content areas have been assessed. Time Spent With Patient: Time in: 10:34 AM Time out: 10:59 AM Billing: MNT: 30 Minutes (23-37) Plan for Return: none, participant declines follow-up Encouraged participant to contact me via My G if any questions or concerns arise. All [facility] providers within the system are able to see [employer] education and outcomes within the participant's electronic medical record. Mala Tang RDN, NUTRITION SERVICES [facility] Diabetes Care and Diamond Picker documented in this encounter Plan of Treatment Upcoming Encounters Date Type Department Care Team (Late st Contact Info) Description 12/02/2023 3:00 PM EDT Office Visit Sales Operations Coordinator Obstetrics Maternal Medicine, [place] [address] [place] [address] Sage Block DO [address] [place] [place] [address] 12/02/2023 3:00 PM EDT Imaging Radiology [facility], [place] [address] [place] [address] 12/06/2023 3:00 PM EDT Imaging Radiology [address] [place] [address] 12/06/2023 3:45 PM EDT Office Visit Gynecology/Obstetrics [facility] [address] [place] [address] Katie Nunn PA-C [address] [place] [address] 12/13/2023 7:45 AM EDT Imaging Radiology [facility] [address] [place] [address] 12/13/2023 8:30 AM EDT Office Visit Gynecology/Obstetrics [facility] [address] [place] [address] BackerRosalba CRNP [address] [place] [address] 12/22/2023 3:00 PM EDT Imaging Radiology [facility] [address] [place] [address] 12/22/2023 3:45 PM EDT Office Visit Gynecology/Obstetrics [facility] [address] [place] [address] Katie Nunn PA-C [address] [place] [address] 12/29/2023 3:00 PM EDT Imaging Radiology [facility] [address] [place] [address] 12/29/2023 3:45 PM EDT Office Visit Gynecology/Obstetrics [facility] [address] [place] [address] Katie Nunn PA-C [address] [place] [address] 01/04/2024 2:45 PM EDT [facility] [address] [place] [address] 01/04/2024 3:15 PM EDT Office Visit Gynecology/Obstetrics [facility] [address] [place] [address] Aurora Stewart CRNP [address] [place] [address] Health Maintenance Due Date Last Done Comments [...] as of this encounter Visit Diagnoses Diagnosis Gestational diabetes mellitus (GDM) in second trimester, gestational diabetes method of control unspecified [O24.419]- Primary Obesity in , antepartum Obesity complicating , childbirth, or the puerperium, antepartum condition or complication documented in this encounter Additional Health Concerns Active Problems Noted Date Diagnosed Date OB Reminders 10/23/2023 documented as of this encounter Care Teams Patient Care Specialist Relationship Specialty Start Date End Date Aruna Yoo DO [address] [place] [address] PCP - General Family Medicine 02/08/11 documented as of this encounter
--- OUTSIDE RECORDS SUMMARY | 2023-12-29 12:09 | External Medical Summary | Summary of Care ---
Author Name Unknown Organization [facility] Address [address] [place] [address] Phone [phone] Care Team Providers Care Collections Agent Name Role Phone Aruna Yoo DO Primary Care Provider Reason for Visit * Reason Comments Follow Up Gestational diabetes management Encounter Details Date Type Department Care Team (Late st Contact Info) Description 11/16/2023 11:00 AM EDT Telemedicine Supervisor Carding Obstetrics Maternal Medicine, [place] [address] [facility] [address] [place] [address] Royce Obrien CRNP [address] [facility] [address] [place] [address] Insulin controlled gestational diabetes mellitus (GDM) in third trimester*; Supervision of high risk , antepartum, third trimester; 32 weeks gestation of Allergies Active Allergy Reactions Criticality Noted Date Comments Gluten Meal 11/18/2016 documented as of this encounter (statuses as of 11/16/2023) Medications Medication Sig Dispensed Refills Start Date End Date Status 19 Oral Tablet Take 1 Tablet by mouth in the morning. Active Pantoprazole Sodium 40 MG Oral Tablet Delayed Release (Protonix)Indication s:Gastroesophageal reflux disease TAKE 1 TABLET DAILY 90 Tablet 3 05/27/2023 Active Sertraline HCl 25 MG Oral Tablet (Zoloft) TAKE 1 TABLET DAILY 90 Tablet 3 07/04/2023 Active Breast PumpIndications:[place] st feeding status of mother Use as [...] C once per day, Reported on 10/27/2023 [facility] Flex System w/Device KitIndications:Gesta tional diabetes mellitus (GDM) in second trimester, gestational diabetes method of control unspecified Use to test blood sugars 4 times daily (fasting, 1 hour after breakfast, lunch, and dinner) 1 Kit 10/13/2023 Active [employer] Delica Lancets 30GIndications:Gesta tional diabetes mellitus (GDM) in second trimester, gestational diabetes method of control unspecified Use to test blood sugars 4 times daily (fasting, 1 hour after breakfast, lunch, and dinner) 200 Each 6 10/13/2023 Active [facility] In Vitro Strip (Glucose Blood)Indications:Di et controlled [...] as of this encounter (statuses as of 11/16/2023) Active Problems Problem Noted Date Diagnosed Date [...] four times per day and report to [facility] for ongoing management. Lab Results Component [...] with [facility]. She has appt today with breastfeeding educator. Discussed blood sugar goals and management [...] and folate levels and referral to a stores despatch hand. If hemoglobin levels are below 8 g/dl, we recommend Maternal Medicine ultrasound for growth every 4 weeks after 24 weeks. Consider a blood transfusion if hemoglobin levels fall below 6 g/dL. ([employer] and Terminal Gauger Supervisor Practice Bulletin Number 95, October,). Consider [...] following growth with radiology; will transition to [facility]. AMA (advanced maternal age) multigravida 35+ [...] as of this encounter (statuses as of 11/16/2023) Resolved Problems Problem Noted Date Diagnosed Date Resolved Date GBS (group B Streptococcus c arrier), +RV culture, currently 03/26/2021 05/17/2023 , normal first 09/10/202005/05 Class 2 obesity 09/10/2020 11/07/2023 Overview: Early glucola Growth u/s every 4 weeks after 20wk Binge eating disorder 06/02/20182023 Overweight (BMI 25.0-29.9) 07/03/2011 1 05/21/2017 Overview: BMI= 28.72 07/03/11 documented as of this encounter (statuses as of 11/16/2023) Immunizations Name Administration Dates Next Due DTaP [...] money to get more. Never true 05/11/2023 [place] Depression Scale Answer Date Recorded [place] Depression Scale Total 4 05/18/2023 The thought [...] as of this encounter Progress Notes * Royce Obrien CRNP - 11/16/2023 11:02 AM EDT Images from the original note were not included. MATERNAL MEDICINE VISIT Patient location: HOME. I was in a hospital or clinic location. After connecting through [employer],patient was verified with two unique identifiers. 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 Methods to assure confidentiality were taken. Patient acknowledged consent and understanding of pr ivacy and security of the Telemedicine visit. The patient agreed to participate. Jane Tejada is a 33 year old year old with intrauterine at 32w5d who presents to [facility] for management of diabetes in . CC/HPI: Here for f/u visit. Current issues include: elevated fastings and after breakfast values Current management: diet controlled Diet: gestational diabetes diet Exercise: walking Hypoglycemia episodes:N/A Recent growth scan: [facility] US: 11/02/23 at 30w5d KAYODE: 17.1 cm EFW: 1913 g (83 % Hadlock) Glucose review: She reports her home blood glucose as following: DATE Fasting 1 hr after Breakfast 1 hr after Lunch 1 hr after Dinner 11/10/23 97 120 105 116 Eating breakfast bars for breakfast REVIEW OF SYSTEMS: headaches: no nausea/vomiting: denies reports movement: yes abdominal pain/tenderness/cramping/contractions: no vaginal bleeding: no vaginal leaking of fluid: no all other systems negative PHYSICAL EXAM: LMP 04/01/2023 (Exact Date) Constitutional: pleasant, well-developed, well nourished General: pleasant, alert and oriented Neuro: mood and affect normal, alert and oriented, no acute distress DISCUSSION: -We discussed continuing to test blood sugars 4 times a day (fasting, one hour after breakfast, lunch, and dinner) -Briefly reviewed GDM diet recommendations including, avoiding processed suagars, sweetened drinks,white flour. Advised compliance with Truck Washer consult. -We discussed eating a snack to help with sugar control in the fasting timeframe. -Encouraged 20-30 minutes a day of exercise (walking, light upper body strength training, yoga, stationary cycling, or swimming) -We discussed the goal of euglycemia in order to create a stable environment for the fetus. She is aware that with diabetes are at increased risk for multiple complications to both mother and fetus -I encouraged the patient to reach out to [facility] in the event that she has any questions regarding diabetes management. -Reviewed insulin administration instruction. I advised her on appropriate technique for administration and she verbalized understanding. RECOMMENDATIONS: Management: Ordered Lantus 10 units at bedtime Scheduled on 12/02/[address] Block for growth scan Recommend twice weekly NSTs starting at 32 weeks for A2GDM. Message sent to OB provider Recommend delivery during the 39th week of by EDC for A2GDM Follow up for glucose management in 1 week via [facility] Thank you for allowing us to participate in the care of this patient. Please call with any questions. CHARISSE Greene 11/16/2023 11:27 AM documented in this encounter Plan of Treatment Upcoming Encounters Date Type Department Care Team (Late st Contact Info) Description 11/22/2023 3:45 PM EDT Office Visit Gynecology/Obstetrics Odilia Zhong [address] [place] [address] Katie Nunn PA-C [address] [facility] [place] [address] 12/02/2023 10:30 AM EDT Nutrition Services Nutrition, Daija Garzas [address] [facility] [place] [address] Mala Tang RDN [address] [place] [address] 12/02/2023 3:00 PM EDT Office Visit Supervisor Carding Obstetrics Maternal Medicine, [place] [address] [place] [address] Sage Block, [address] [place] [address] 12/02/2023 3:00 PM EDT Imaging Radiology [facility] [address] [place] [address] 12/06/2023 3:45 PM EDT Office Visit Gynecology/Obstetrics Odilia Zhong [address] [place] [address] Katie Nunn PA-C [address] [facility] [place] [address] 12/13/2023 8:30 AM EDT Office Visit Gynecology/Obstetrics Odilia Zhong [address] [place] [address] Rosalba Bustamante CRNP [address] [place] [address] 12/22/2023 3:45 PM EDT Office Visit Gynecology/Obstetrics [facility] [address] [facility] [place] [address] Katie Nunn PA-C [address] [place] [address] 12/29/2023 3:45 PM EDT Office Visit Gynecology/Obstetrics [facility] [address] [facility] [place] [address] Katie Nunn PA-C [address] [place] [address] 01/04/2024 3:15 PM EDT Office Visit Gynecology/Obstetrics [facility] [address] [facility] [place] [address] Aurora Stewart CRNP [address] [facility] [place] [address] Health Maintenance Due Date Last Done Comments [...] diabetes mellitus (GDM) in third trimester- Primary Supervision of high risk , antepartum, third trimester 32 weeks gestation of state, incidental documented in this encounter Additional Health Concerns Active Problems Noted Date Diagnosed Date OB Reminders 10/23/2023 documented as of this encounter Care Teams Collections Agent Relationship Specialty Start Date End Date Aruna Yoo DO [facility] [place] [address] PCP - General Family Medicine 02/08/11 documented as of this encounter
--- OUTSIDE RECORDS SUMMARY | 2023-12-29 12:10 | External Medical Summary | Summary of Care ---
Author Name Unknown Organization [facility] Address [address] [facility] [place] [address] Phone [phone] Care Team Providers Care Utility Clerk Name Role Phone Aruna Yoo DO Primary Care Provider Reason for Visit * Reason Comments DSMT INITIAL * Evaluate & Treat - Unlimited Visits (Within 10 days (routine)) - Authorized Specialty Diagnoses / Procedures Referred By Contregi t Referred To Contact All Round Logger / Nutrition Services Diagnoses Gestational diabetes mellitus (GDM) in second trimester, gestational diabetes method of control unspecified Rosalba Bustamante CRNP [address] [place] [id number] Referral ID Status Reason Start Date Expiration Date Visits Requested Visits Authorized [id number] Authorized Specialty Services Required 10/13/[phone] Encounter Details Date Type Department Care Team (Latest Contact Info) Description 11/02/2023 3:00 PM EDT Nutrition Services Daija Arriaza [address] [place] [id number] Mala Tang RDN [address] [place] [id number] Diet controlled gestational diabetes mellitus (GDM) in third trimester*; Obesity in , antepartum; Antepartum anemia complicating ; Gestational diabetes mellitus (GDM) in second trimester, gestational diabetes method of control unspecified [O24.419] Allergies Active Allergy Reactions Criticality Noted Date Comments Gluten Meal 11/18/2016 documented as of this encounter (statuses as of 11/02/2023) Medications Medication Sig Dispensed Refills Start Date End Date Status 19 Oral Tablet Take 1 Tablet by mouth in the morning. Active Pantoprazole Sodium 40 MG Oral Tablet Delayed Release (Protonix)Indication s:Gastroesophageal reflux disease TAKE 1 TABLET DAILY 90 Tablet 3 05/27/2023 Active Sertraline HCl 25 MG Oral Tablet (Zoloft) TAKE 1 TABLET DAILY 90 Tablet 3 07/04/2023 Active Ondansetron HCl 4 MG Oral TabletIndications:Na usea and vomiting during Take 1 Tablet by mouth in the morning and 1 Tablet at noon and 1 Tablet before bedtime. 30 Tablet 2 10/11/2023 Active Promethazine HCl 25 MG Oral Tablet (Phenergan)Indicatio ns:Nausea and vomiting during Take 1 Tablet by mouth every 6 hours as needed for Nausea. 30 Tablet 1 10/11/2023 Active Breast PumpIndications:[place] st feeding status of mother Use as directed. 1 Each 10/11/2023 Active Ferrous Sulfate 325 (65 Fe) MG Oral Tablet (Feosol)Indications: Antepartum anemia complicating Take 1 Tablet by mouth in the morning and 1 Tablet before bedtime. 60 Tablet 12 10/11/2023 Active Additional Information Patient taking differently:325 mg Oral BID (.AM/PM),Indications: Taking Vitron C once per day, Reported on 10/27/2023 [employer] Verio Flex System w/Device KitIndications:Gesta tional diabetes mellitus (GDM) in second trimester, gestational diabetes method of control unspecified Use to test blood sugars 4 times daily (fasting, 1 hour after breakfast, lunch, and dinner) 1 Kit 10/13/2023 Active IvyDateio In Vitro Strip (Glucose Blood)Indications:Ge stational diabetes mellitus (GDM) in second trimester, gestational diabetes method of control unspecified Use to test blood sugars 4 times daily (fasting, 1 hour after breakfast, lunch, and dinner) 125 Strip 10/13/2023 Active [employer] Delica Lancets 30GIndications:Gesta tional diabetes mellitus (GDM) in second trimester, gestational diabetes method of control unspecified Use to test blood sugars 4 times daily (fasting, 1 hour after breakfast, lunch, and dinner) 200 Each 6 10/13/2023 Active documented as of this encounter (statuses as of 11/02/2023) Active Problems Problem Noted Date Diagnosed Date GDM (gestational diabetes mellitus) 10/11/2023 Overview: Diagnosed at 27 weeks by [...] four times per day and report to [facility] for ongoing management. Lab Results Component [...] blood sugars each week for MFM review Last Assessment & Plan: Working with [facility]. She has appt today with game manager. Discussed blood sugar goals and management in [...] and folate levels and referral to a ethics instructor. If hemoglobin levels are below 8 g/dl, we recommend Maternal Medicine ultrasound for growth every 4 weeks after 24 weeks. Consider a blood transfusion if hemoglobin levels fall below 6 g/dL. ([employer] Bulletin Number 95, October,). Consider Venofer [...] to behavioral health services as clinically indicated. Class 2 obesity 09/10/2020 Overview: Early glucola Growth u/s every 4 weeks after 20wk History of PCOS 09/10/2020 Overview: History of [...] as of this encounter (statuses as of 11/02/2023) Resolved Problems Problem Noted Date Diagnosed Date Resolved Date GBS (group B Streptococcus c arrier), +RV culture, currently 03/26/2021 05/17/2023 , normal first 09/10/202005/05 Binge eating disorder 06/02/20182023 Overweight (BMI 25.0-29.9) 07/03/2011 1 05/21/2017 Overview: BMI= 28.72 07/03/11 documented as of this encounter (statuses as of 11/02/2023) Immunizations Name Administration Dates Next Due DTaP [...] money to get more. Never true 05/11/2023 Newport Depression Scale Answer Date Recorded Newport Depression Scale Total 4 05/18/2023 The thought [...] on file documented as of this encounter Patient Instructions * Patient Instructions* Mala Tang RDN - 11/02/2023 4:04 PM EDT Participant will aim for 2-3 servings of carb's at main meals and 1-2 servings at snacks. Try to combine a high-protein and/or fat food with carb containing food. Become familiar with recommended portion sizes of high carb foods. Review nutrition labels for total grams of carb's. Monitor for glucose spikes after eating certain high-carb foods. documented in this encounter Progress Notes * Mala Tang RDN - 11/02/2023 3:15 PM EDT DIABETES SELF-MANAGEMENT TRAINING/INITIAL NOTE Name: Jane Tejada Date: 11/02/2023 Participant was seen face to face in [...] you like to discuss in your appointment: concerned about how to continue following gluten free diet due to celiac disease and improve iron levels due to anemia In your words, what is diabetes? asked/not answered Do you know the risks of uncontrolled diabetes? No Do you believe that diabetes can be controlled? Yes Are you ready to make small changes to help with diabetes self-management: Yes What type of diabetes do you have? Gestational Diabetes Mellitus: Are you aware of the post- glucose screening recommendations? No Diabetes diagnosis year: 2023 Do you have a family history of diabetes? Yes Have you had any previous diabetes education? No Support systems: Spouse Barriers to care: None Special Needs: None Psychosocial Screening: Lately have you been feeling down, depressed or hopeless most of the day? No How Do You Manage Stress? Talking with Relaxing Food Insecurity: Within the past 12 months, I worried whether our food would run out before we got money to buy more. No Within the past 12 months, the food we bought just did not last and we did not have money to buy more. No Sleep Health: Addressed - How many hours are you sleeping during the night? 7-8 hours broken up during the night Do you have difficulty falling or staying asleep? Yes, staying asleep due to congestion and toddlerson Do you snore? Yes due to congestion Are you waking up during the night with symptoms of low glucose levels (shaky, sweaty, nightmares)?No Are you waking up during the night to urinate frequently? Yes Diabetes Medications: None Monitoring blood glucose, interpreting and using results Latest Reference Range & Units 10/11/23 09:35 10/11/23 10:35 10/11/23 11:29 100-g Gestational Glucose, 1 Hour 70 - 179 mg/dL 225 (H) 100-g Gestational Glucose, 2 Hour 70 - 154 mg/dL 114 100-g Gestational Glucose, 3 Hour 70 - 139 mg/dL 81 (H): Data is abnormally high Above levels reviewed Self-Monitoring Blood Glucose Source of Information: Participant brought meter Frequency of tests: 4 times daily FBS 104, 96, 84, 89, 91, 88, 92, 91, 86, 95, 85, 88 143, 146 usually higher after breakfast After lunch 122, 122, 141, 118, 121, 135, 135, 163, 132 Hypoglycemia?: No Diet: Describes typical diet history/24-hour recall Breakfast: 9-9:30 AM 2 eggs, 2 slices toast with butter or plain, water Snacks: almonds or gluten free pretzels and PB or popcorn Lunch: grilled chicken or steak, potato or pasta or brown rice or quinoa, broccoli or carrots or peppers or asparagus, water Snacks: same as AM snack Dinner: 6 PM same as lunch Snacks: none, same as above or gluten free crackers Drinks: water Restaurant meals: rare Weight management review: Wt Readings from Last 6 Encounters: 10/24/23 103.9 kg (229 lb) 10/18/23 103.9 kg (229 lb) 10/11/23 102.1 kg (225 lb) 09/23/23 100.3 kg (221 lb 3.2 oz) 08/26/23 98 kg (216 lb) 07/15/23 95.7 kg (211 lb) Recent weight changes: none 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 Dyslipidemia: No results found for: "LDL" No results found for: "TRIG", "CHOL", "HDL" Gestational Diabetes Mellitus Participant Kidney function review: [...] URINE - [facility]" Gestational Diabetes Mellitus Participant DSMT Initial Visit Assessment of Content Areas: Choose the answer that represents the participant's competency in each area. All need to be assessed at initial. Areas taught must match intervention. If content area not assessed and/or intervened today, it will be deferred to future session. Diabetes disease process and treatment process: Needs instruction (1) Incorporating nutrition management into lifestyle: Needs instruction (1) Incorporating physical activity into lifestyle: Needs instruction (1) Using medications safely: Needs instruction (1) Monitoring blood glucose, interpreting and using results: Needs instruction (1) Prevention, detection, and treatment of acute complications: Needs instruction (1) Prevention, detection, and treatment of chronic complications: Needs instruction (1) Developing strategies to address psychosocial issues: Needs instruction (1) Developing strategies to promote health/change behavior: Needs instruction (1) DSMT/ Diabetes MNT intervention: Pathophysiology: Defined disease process. Participant admits to family history of diabetes-mother and grandmother. Nutrition: Educated on the effects of macronutrients on diabetes control and diabetes complications. Taught and had participant identify foods that contain carbohydrates. GDM nutrition: Taught participant how to read a food label. Stressed importance of avoiding sugar sweetened beverages, fruit juices. Encouraged bedtime snack 8-10 hours before fasting test the next day. Educated on vitamin C containing foods that will not adversely affect glucose levels. Discussed benefit of fiber on glucose control. Encouraged her to include low- carb vegetables in her meal regimen-reviewed these with her. She admits that she is "a picky eater." Emphasized importance of eating consistent meals and snacks throughout the day. She admits to not always eating an evening snack due to being too full. Encouraged her to try a high-protein, low-carb shake for evening snack. Reviewed recommended portion sizes of some common high-carb foods. Encouraged her to monitor certain high-carb foods and how they affect her g lucose levels. Physical Activity: Educated on the role of physical activity on glucose control. Encouraged participant to do short sessions of walking after eating if post prandial glucose levels above recommended target range. Monitoring: Participant notes checking glucose levels as recommended. She can verbalize recommendedtarget ranges for fasting and post prandial glucose levels. Encouraged her to refrain from using microsystems engineer before checking glucose levels. Reviewed recommended method of disposal of used lancets. States she starts with clean hand and uses a new lancet with each check. She has been using the [facility] sharifa to transport results to [facility] provider. She is also using the [employer] sharifa. Chronic Complications: Reviewed potential complications with baby with elevated glucose levels. Participant Selected Behavioral Objective: Nutrition: To improve blood glucose control I will aim for 2-3 servings of carb's at main meals and1-2 servings at snacks. Recommended Medication Changes: No changes. Education materials given to participant/caregiver and reviewed during today's visit: Understanding CHO's Tips for GDM and sample menu pattern Diabetes Self-Management Support: Apps/Smart Phone Technology: One Touch, Current Health Possible Future Topics: Content areas that were not assessed in first visit: All content areas have been assessed. Time Spent With Patient: Time in: 3:13 PM Time out: 4:11 PM Billing: DSMT: 30 Minutes Plan for Return: 12/02/2023 Participant provided with contact information for Diabetes Care and Edi Specialist. All [facility] providers within the system are able to see [employer] education and outcomes within the participant's electronic medical record. Mala Tang RDN, NUTRITION SERVICES [facility] Diabetes Care and Edi Specialist documented in this encounter Miscellaneous Notes * Pt Handout (on AVS) - Mala Tang RDN - 11/02/2023 3:55 PM EDT Images from the original note were not included. [id number] Understanding Carbohydrates Just like a car needs the right type of fuel to run, you need the right kind of food to function. To keep your energy level up, your body needs food that has carbohydrates (carbs). But carbs raise blood sugar levels higher and faster than other kinds of food. Your dietitian will work with you to figure out the amount of carbs you need. Carbs come in 3 types: starches, sugars, and fiber. Starches Starches are found in grains, some vegetables, and beans. Grain products include bread, pasta, cereal, and tortillas. Starchy vegetables include potatoes, peas, corn, love beans, yams, and squash. Kidney beans, enrique beans, black beans, garbanzo beans, and lentils also have starches. Sugars Sugars are found naturally in many foods. Or they can be added. Foods that contain natural sugar include fruits and fruit juices, dairy products, honey, and molasses. Added sugars are found in most desserts, processed foods, candy, regular soda, and fruit drinks. These are very helpful to treat lowblood sugar (hypoglycemia). They give you sugar quickly. Try to keep at least 15 to 20 grams of these simple sugars with you at all times. Eat or drink these if you start to have symptoms of low blood sugar. Fiber Fiber comes from plant foods. Your body can't digest most fiber. Instead of raising blood sugar levels like other carbs, fiber stops blood sugar from rising too quickly. Fiber is found in fruits, vegetables, whole grains, beans, peas, and many nuts. Understanding how to count your carbs Keep track of the amount of carbs you eat. This can help you keep the right balance of carbs, physical activity, and medicine. The amount of carbs you need will be different from what other people need. How much you need depends on many things. These include your health, the medicines you take, andhow active you are. Your healthcare team will help you figure out the right amount of carbs for you. You may start with 45 to 60 grams of carbs per meal, depending on your case. Carb counting is a system that helps you keep track of the carbohydrates you eat at each meal. Carbs come from many foods. These include grains, starchy vegetables, fruit, milk, beans, and snackfoods. You can either count carbohydrate grams or carbohydrate servings. When you count carbohydrate servings, 1 carbohydrate serving = 15 grams of carbohydrates. Here are some examples of foods that have about 15 grams of carbs (1 serving of carbohydrates): 1/2 cup of canned or frozen fruit A small piece of fresh fruit (4 ounces) 1 slice of bread 1/2 cup of oatmeal 1/3 cup of rice 4 to 6 crackers 1/2 Slovenian muffin 1/2 cup of black beans 1/4 of a large baked potato (3 ounces) 2/3 cup of plain fat-free yogurt 1 cup of soup 1/2 cup of casserole 6 chicken nuggets [id number] brownie or cake without frosting 2 small cookies 1/2 cup of ice cream or sherbet Carb counting is easier when food labels are available. Look at the label to see how many grams of total carbs per serving the food contains. Then you can figure out how much you should eat. If your food doesn't have a nutrition label, you should be able to get an idea of how many carbs there are per serving by using a book or website. Two very important lines to look at on the label are the serving size and the total carbohydrate amount per serving. Here are some tips for using food labels to count your carbs: Check the serving size. The information on the label is based on that serving size. If you eat more than the listed serving size, you may have to double or triple the other information on the label. Check the total grams of carbs. Total carbohydrate from the label includes sugar, starch, and fiber. Be sure to use the total carbohydrate number (minus the fiber) and not sugar alone. Know how many grams of carbs you can have. Be familiar with the matching portion sizes. Compare labels. Compare the labels of different products. Look at serving sizes and total carbs to find the products that work best for you. Don't forget protein and fat. With the focus on carb counting, it might be easy to forget protein and fat in your meals. Don't forget to include sources of protein and healthy fat to balance your meals. Also watch how much salt (sodium) you eat. This is especially true if you have high blood pressure. If you have diabetes, limit the amount of sodium to less than 2,300 mg a day. It?s also important to be consistent with the amount of carbs and time you eat when taking a fixed dose of diabetes medicine. Work with your healthcare provider or dietitian if you need more help. They can help you keep track of your carbs. They can also help you figure out how many grams of carbs you should have. Last Reviewed Date: 06/03/202319992321-9176 [employer]. All rights reserved. This information is not intended as a substitute for professional medical care. Always follow your healthcare professional's instructions. documented in this encounter Plan of Treatment Upcoming Encounters Date Type Department Care Team (Late st Contact Info) Description 11/08/2023 8:45 AM EDT Office Visit Gynecology[facility]stetrics [facility] [address] [facility] [place] [address] Rosalba Bustamante CRNP [address] [place] [id number] 11/22/2023 3:45 PM EDT Office [facility] [address] [facility] [place] [address] Katie Nunn PA-C [address] [facility] [place] [address] 12/02/2023 10:30 AM EDT [facility] [address] [facility] [place] [address] Mala Tang RDN [address] [place] [address] 12/02/2023 3:00 PM EDT Office Visit [facility], [place] [address] [place] [address] Sage Block DO [address] [place] [address] 12/02/2023 3:00 PM EDT Imaging [facility] [place] [address] [place] [address] 12/06/2023 3:45 PM EDT Office Visit Gynecology/Obstetrics [facility] [address] [place] [address] Katie Nunn PA-C [address] [place] [address] 12/13/2023 8:30 AM EDT Office Visit Gynecology/Obstetrics [facility] [address] [place] [address] Rosalba Bustamante CRNP [address] [place] [address] 12/22/2023 3:45 PM EDT Office Visit Gynecology/Obstetrics [facility] [address] [place] [address] Katie Nunn PA-C [address] [place] [id number] 12/29/2023 3:45 PM EDT Office Visit Gynecology/Obstetrics [facility] [address] [place] [address] Katie Nunn PA-C [address] [place] [id number] 01/04/2024 3:15 PM EDT Office [facility] [address] [place] [address] Aurora Stewart CRNP [address] [place] [address] Scheduled Referrals Name Type Priority Associated Diagnoses Orde r Schedule DIABETES MANAGEMENT EDUCATION (ADA) REFERRAL Referral Within 10 days (routine) Gestational diabetes mellitus (GDM) in second trimester, gestational diabetes method of control unspecified Ordered: 10/13/2023 Health Maintenance Due Date Last Done Comments HPV/Co-Test 02/02/2018 Depression Monitoring 05/25/2020 05/25/2019 Diabetes Screening 06/09/2021 06/09/2018 COVID-19 Vaccine ( season) 2022 Influenza Vaccine (FLU shot) (#1) 2023 Cervical Cancer Screening 09/01/2024 Pap Smear 09/01/2024 09/01/2021, 01/03, 11/19/2015, Additional history exists DTaP,Tdap,and Td Vaccines (9 - Td or Tdap) 10/10/2033 10/11/2023, 01/29/2021, 09/07/2012, Additional history exists Hepatitis B Vaccine Completed 07/12/2000, 05/10/2000, 03/15/2000 Hepatitis C Screening Completed 05/18/2023 , 05/18/2023, 05/18/2023 HPV (Gardasil) Vaccine Aged Out No lo [...] trimester, gestational diabetes method of control unspecified [O24.419] Obesity in , antepartum Obesity complicating , childbirth, or the puerperium, antepartum condition or complication Antepartum anemia complicating Anemia, antepartum documented in this encounter Additional Health Concerns Active Problems Noted Date Diagnosed Date OB Reminders 10/23/2023 documented as of this encounter Care Teams Utility Clerk Relationship Specialty Start Date End Date Aruna Yoo DO [address] [place] [address] PCP - General Family Medicine 02/08/11 documented as of this encounter
--- OUTSIDE RECORDS SUMMARY | 2023-12-29 12:10 | External Medical Summary | Summary of Care ---
Author Name Unknown Organization [facility] Address [address] [place] [address] Phone [phone] Care Team Providers Care Turret Lathe Set Up Operator Name Role Phone Aruna Yoo DO Primary Care Provider Reason for Visit * Reason Onset Date Comments Referral 10/13/2023 Encounter Details Date Type Department Care Team (Late st Contact Info) Description 10/13/2023 Telephone Senior Electrical Designer Obstetrics Maternal Medicine, [place] [address], [place] [phone] [place], Nurse Senior Electrical Designer [facility] [address] [place], [place] [phone] Referral Allergies Active Allergy Reactions Criticality Noted Date Comments Gluten Meal 11/18/2016 documented as of this encounter (statuses as of 10/24/2023) Medications Medication Sig Dispensed Refills Start Date End Date Status 19 Oral Tablet Take 1 Tablet by mouth in the morning. Active Pantoprazole Sodium 40 MG Oral Tablet Delayed Release (Protonix)Indications: Gastroesophageal reflux disease TAKE 1 TABLET DAILY 90 Tablet 3 05/27/2023 Active Sertraline HCl 25 MG Oral Tablet (Zoloft) TAKE 1 TABLET DAILY 90 Tablet 3 07/04/2023 Active Ondansetron HCl 4 MG Oral TabletIndications:Naus ea and vomiting during Take 1 Tablet by mouth in the morning and 1 Tablet at noon and 1 Tablet before bedtime. 30 Tablet 2 10/11/2023 Active Promethazine HCl 25 MG Oral Tablet (Phenergan)Indications :Nausea and vomiting during Take 1 Tablet by mouth every 6 hours as needed for Nausea. 30 Tablet 1 10/11/2023 Active Breast PumpIndications:Breast feeding status of mother Use as directed. 1 Each 10/11/2023 Active Ferrous Sulfate 325 (65 Fe) MG Oral Tablet (Feosol)Indications:An tepartum anemia complicating Take 1 Tablet by mouth in the morning and 1 Tablet before bedtime. 60 Tablet 12 10/11/2023 Active PrismTechTouch Verio Flex System w/Device KitIndications:Gestati onal diabetes mellitus (GDM) in second trimester, gestational diabetes method of control unspecified Use to test blood sugars 4 times daily (fasting, 1 hour after breakfast, lunch, and dinner) 1 Kit 10/13/2023 Active OneTouch Verio In Vitro Strip (Glucose Blood)Indications:Gest ational diabetes mellitus (GDM) in second trimester, gestational diabetes method of control unspecified Use to test blood sugars 4 times daily (fasting, 1 hour after breakfast, lunch, and dinner) 125 Strip 6 10/13/2023 Active J.G. inkuch Delica Lancets 30GIndications:Gestati onal diabetes mellitus (GDM) in second trimester, gestational diabetes method of control unspecified Use to test blood sugars 4 times daily (fasting, 1 hour after breakfast, lunch, and dinner) 200 Each 6 10/13/2023 Active documented as of this encounter (statuses as of 10/24/2023) Active Problems Problem Noted Date Diagnosed Date GDM (gestational diabetes mellitus) 10/11/2023 Antepartum anemia complicating 024 Overview: Hgb 11.2 at 27 wks, rx'd iron GBS (group B streptococcus) UTI complicating pre gnancy 05/23/2023 High-risk 05/18/2023 Obesity in , antepartum 05/18/2023 Overview: Class 2 - early GTT, growth q4 wks, weekly NSTs 37 wks AMA (advanced maternal age) multigravida 35+ Anxiety during 05/18/2023 History of PCOS 09/10/2020 Overview: Failed early glucola, 3hr GTT ordered Anxiety 06/02/2018 Moderate episode of recurrent major depressive d isorder 06/02/2018 Acne vulgaris 06/02/2018 Gastroesophageal reflux disease 06/02/2018 Ganglion cyst 07/03/2011 Overview: LEFT DORSAL HAND/WRIST Estimated Date of Delivery Comme nts Yes 01/06/2024 Based on last me nstrual period of 04/01/2023 documented as of this encounter (statuses as of 10/24/2023) Resolved Problems Problem Noted Date Diagnosed Date Resolved Date GBS (group B Streptococcus c arrier), +RV culture, currently 03/26/2021 05/17/2023 , normal first 09/10/202005/05 Obesity, Class II, BMI 35-39 .9, isolated (see actual BMI) 09/10/2020 05/18/2023 Overview: Early glucola Growth u/s every 4 weeks after 20wk Binge eating disorder 06/02/20182023 Overweight (BMI 25.0-29.9) 07/03/2011 1 05/21/2017 Overview: BMI= 28.72 07/03/11 documented as of this encounter (statuses as of 10/24/2023) Immunizations Name Administration Dates Next Due DTaP [...] money to get more. Never true 05/11/2023 [place] Depression Scale Answer Date Recorded [place] Depression Scale Total 4 05/18/2023 The thought [...] on last me nstrual period of 04/01/2023 Sex and Gender Information Value Date Recorded Sex Assigned at Female 05/11/2023 3:31 AM EST Gender Identity Female 05/11/2023 3:31 AM EST Sexual Orientation Straight 05/11/2023 3: 31 AM EST Job Start Date Occupation Industry Not on file Not on file Not on file documented as of this encounter Miscellaneous Notes * Telephone Encounter - Yumiko Snyder OSA - 10/24/2023 8:43 AM EDT Spoke with Jane. Appointment scheduled. Patient aware of date, time and location of Maternal Medicine appointment. * Telephone Encounter - Stephanie Brown CCMA - 10/24/2023 8:19 AM EDT Patient completed OB appt 10/18/23, provider continues to recommend patient see MFM due to dx of GDM. Please contact patient to schedule. * Telephone Encounter - Yumiko Snyder OSA - 10/18/2023 7:47 AM EDT Called pt. She stated she has an OB appt. Today at noon and will be discussing options at that time. She stated she would like to leave her referral open as of now and will call after speaking with her OB as to weather she would like to decline or schedule. * Telephone Encounter - Cara Huynh OSA - 10/13/2023 1:41 PM EDT Called patient to schedule both the ADAPT and anatomy scan. Patient asked where she would need to go for the anatomy scan. I told her that the anatomy scan can be done at [facility] in [place] or at [facility] in [place]. Patient stated that she does not want to travel to either of those locations for the anatomy scan. I did ask Jane if she wants to decline the referral and she said she wants to talk to her OB provider first and to leave the referral as pending for right now. * Telephone Encounter - Stephanie Brown CCMA - 10/13/2023 1:34 PM EDT Estimated Date of Delivery: 01/06/24 Please schedule for 45 MINUTE ADAPT WITH HOPPER FEEDER, in time frame of within 1 week at location [place] with the indication of GDM. Please schedule anatomy within 2-3 weeks. Referring Provider: Rosalba Bustamante CRNP documented in this encounter Plan of Treatment Upcoming Encounters Date Type Department Care Team (Late st Contact Info) Description 10/24/2023 2:15 PM EDT Office Visit Gynecology/Obstetrics [facility] [address] [facility] [address] Aurora Stewart CRNP [address] [place] [address] 10/27/2023 10:30 AM EDT [facility]medicine Senior [facility] [address] [place] [address] Nae Lewis CRNP [address] [place] [address] 11/02/2023 10:45 AM EDT Office Visit Senior Electrical Designer Obstetrics Maternal Medicine, [place] [address] [place] [address] Didi Bryant DO [address] [place] [address] 11/02/2023 10:45 AM EDT Imaging Radiology [facility] [address] [place] [address] Health Maintenance Due Date Last Done Comments HPV/Co-Test 02/02/2018 Depression Monitoring 05/25/2020 05/25/2019 Diabetes Screening 06/09/2021 06/09/2018 COVID-19 Vaccine (24 season) 2022 Influenza Vaccine (FLU shot) (#1) [...] documented as of this encounter Care Teams Turret Lathe Set Up Operator Relationship Specialty Start Date End Date Aruna Yoo DO [address] [place] [address] PCP - General Family Medicine 02/08/11 documented as of this encounter
--- OUTSIDE RECORDS SUMMARY | 2023-12-29 12:10 | External Medical Summary | Summary of Care ---
Author Name Unknown Organization [facility] Address [address] [facility] [address] Phone [phone] Care Team Providers Care Desulfurizer Machine Name Role Phone Aruna Yoo DO Primary Care Provider Reason for Visit * Reason Comments Outpatient Testing Encounter Details Date Type Department Care Team (Late st Contact Info) Description 11/07/2023 1:45 PM EDT Laboratory Laboratory, [facility] [address] [facility] [phone] [facility] [address] [facility] [address] Antepartum anemia complicating Allergies Active Allergy Reactions Criticality Noted Date Comments Gluten Meal 11/18/2016 documented as of this encounter (statuses as of 11/07/2023) Medications Medication Sig Dispensed Refills Start Date End Date Status 19 Oral Tablet Take 1 Tablet by mouth in the morning. Active Pantoprazole Sodium 40 MG Oral Tablet Delayed Release (Protonix)Indication s:Gastroesophageal reflux disease TAKE 1 TABLET DAILY 90 Tablet 3 05/27/2023 Active Sertraline HCl 25 MG Oral Tablet (Zoloft) TAKE 1 TABLET DAILY 90 Tablet 3 07/04/2023 Active Breast PumpIndications:Fordyce st feeding status of mother Use as [...] C once per day, Reported on 10/27/2023 Mind on GamesTouch Verio Flex System w/Device KitIndications:Gesta tional diabetes mellitus (GDM) in second trimester, gestational diabetes method of control unspecified Use to test blood sugars 4 times daily (fasting, 1 hour after breakfast, lunch, and dinner) 1 Kit 10/13/2023 Active Executive Intermediaryuch Delica Lancets 30GIndications:Gesta tional diabetes mellitus (GDM) in second trimester, gestational diabetes method of control unspecified Use to test blood sugars 4 times daily (fasting, 1 hour after breakfast, lunch, and dinner) 200 Each 6 10/13/2023 Active Erbix - [employer] In Vitro Strip (Glucose Blood)Indications:Di et controlled gestational diabetes mellitus (GDM) in third trimester Monitor blood sugar four times daily (once fasting & 1 hour after breakfast, lunch, and dinner). 150 Strip 6 11/07/2023 Active documented as of this encounter (statuses as of 11/07/2023) Active Problems Problem Noted Date Diagnosed Date [...] four times per day and report to [facility] for ongoing management. Lab Results Component [...] F/U ADAPT visit scheduled 11/16/23 @ 11AM Last Assessment & Plan: Working with ADAPT. She has appt today with merchandising team lead. Discussed blood sugar goals and management in [...] and folate levels and referral to a dictating machine transcriber. If hemoglobin levels are below 8 g/dl, we recommend Maternal Medicine ultrasound for growth every 4 weeks after 24 weeks. Consider a blood transfusion if hemoglobin levels fall below 6 g/dL. ([employer] Bulletin Number 95, October,). Consider Venofer [...] as of this encounter (statuses as of 11/07/2023) Resolved Problems Problem Noted Date Diagnosed Date Resolved Date GBS (group B Streptococcus c arrier), +RV culture, currently 03/26/2021 05/17/2023 , normal first 09/10/202005/05 Class 2 obesity 09/10/2020 11/07/2023 Overview: Early glucola Growth u/s every 4 weeks after 20wk Binge eating disorder 06/02/20182023 Overweight (BMI 25.0-29.9) 07/03/2011 1 05/21/2017 Overview: BMI= 28.72 07/03/11 documented as of this encounter (statuses as of 11/07/2023) Immunizations Name Administration Dates Next Due DTaP [...] money to get more. Never true 05/11/2023 [place] Depression Scale Answer Date Recorded [place] Depression Scale Total 4 05/18/2023 The thought [...] Info) Description 11/16/2023 11:00 AM EDT Telemedicine Rework Operator Obstetrics Maternal Medicine, [place] [address] [facility] [address] [place] [address] Royce Obrien CRNP [address] [facility] [address] [place] [address] 11/22/2023 3:45 PM EDT Office Visit Gynecology/Obstetrics [facility] [address] [place] [address] Katie Nunn PA-C [address] [place] [address] 12/02/2023 10:30 AM EDT Nutrition Services Nutrition, [facility] [address] [place] [address] Mala Tang RDN [facility] [place] [address] 12/02/2023 3:00 PM EDT Office Visit Rework Operator Obstetrics Maternal Medicine, [address] [phone] Sage Block DO [address] [place] [address] 12/02/2023 3:00 PM EDT [facility] [place] [address] [place] [address] 12/06/2023 3:45 PM EDT Office Visit Gynecology/Obstetrics [facility] [address] [place] [address] Katie Nunn PA-C [address] [facility] [place] [address] 12/13/2023 8:30 AM EDT Office Visit Gynecology/Obstetrics [facility] [address] [place] [address] Rosalba Bustamante CRNP [address] [place] [address] 12/22/2023 3:45 PM EDT Office Visit Gynecology/Obstetrics [facility] [address] [place] [address] Katie Nunn PA-C [address] [facility] [place] [address] 12/29/2023 3:45 PM EDT Office Visit Gynecology/Obstetrics [facility] [address] [place] [address] Katie Nunn PA-C [address] [facility] [place] [address] 01/04/2024 3:15 PM EDT Office Visit Gynecology/Obstetrics [facility] [address] [place] [address] Aurora Stewart CRNP [address] [place] [address] Pending Results Name Type Priority Associated Diagnoses Date /Time CBC WITH WBC DIFFERENTIAL AND ANEMIA REFLEX WORKUP Lab Routine Antepartum anemia complicating 11/07/2023 1:50 PM EDT ANEMIA CBC Lab Routine Antepartum anemia complicating 11/07/2023 1:50 PM EDT DIFFERENTIAL, AUTOMATED Lab Routine Antepartum anemia complicating 11/07/2023 1:50 PM EDT ANEMIA REFLEX CHEMISTRY HOLD Lab Routine Antepartum anemia complicating 11/07/2023 1:50 PM EDT Health Maintenance Due Date Last Done Comments [...] as of this encounter Visit Diagnoses Diagnosis Antepartum anemia complicating Anemia, antepartum documented in this encounter Additional Health Concerns Active Problems Noted Date Diagnosed Date OB Reminders 10/23/2023 documented as of this encounter Care Teams Desulfurizer Machine Relationship Specialty Start Date End Date Aruna Yoo DO [address] [place] [address] PCP - General Family Medicine 02/08/11 documented as of this encounter
--- OUTSIDE RECORDS SUMMARY | 2023-12-29 12:10 | External Medical Summary ---
Author Name Unknown Address Unknown Organization K01:[facility] - [address] [place] [address] [place] [address] Laboratory Report Ordering Provider Test Date Status ANGELITO,BACKER 11/07/2023 13:50:34 Final Observation Date Value Abnormality Reference (Units ) Status WBC, Total 11/07/2023 13:50:34 13.58 Above high normal 4 .00-10.80 (K/uL) Final RBC 11/07/2023 13:50:34 3.92 3.85-5.15 (M/uL) Final Hemoglobin 11/07/2023 13:50:34 11.6 Below low normal 12 .0-15.3 (g/dL) Final Anemia reflex testing trigge rs on a HGB < 12.0 for Females and HGB < 13.0 for Males in accordance with the WHO Anemia Guidelines
Anemia reflex testing triggers on a HGB < 12.0 for Females and HGB < 13.0 for Males in accordance with the WHO Anemia Guidelines HCT 11/07/2023 13:50:34 36.4 36.0-45.2 (%) Final MCV 11/07/2023 13:50:34 92.9 81.5-97.5 (fL) Final MCH 11/07/2023 13:50:34 29.6 27.0-34.0 (pg) Final MCHC 11/07/2023 13:50:34 31.9 32.0-36.0 (g/dL) Final RDW 11/07/2023 13:50:34 13.6 11.5-15.5 (%) Final Platelets 11/07/2023 13:50:34 262 140-400 (K /uL) Final MPV 11/07/2023 13:50:34 11.3 6.6-11.1 ( fL) Final Nucleated erythrocytes/100 leukocytes [Ratio] in Blood by Automated count 11/07/2023 13:50:34 0 <=0 (/100 WBCs) Marimar tomas Performing Location [facility] - [address] [facility] [address]
--- OUTSIDE RECORDS SUMMARY | 2023-12-29 12:10 | External Medical Summary | Summary of Care ---
Author Name Unknown Organization [facility] Address [address] [place] [address] Phone [phone] Care Team Providers Care Pellet Mill Operator Name Role Phone Aruna Yoo DO Primary Care Provider Reason for Visit * Reason Comments Follow Up Gestational diabetes Encounter Details Date Type Department Care Team ([facility] st Contact Info) Description 11/07/2023 11:00 AM EDT Telemedicine Sleeping Car Service Attendant Obstetrics Maternal Medicine, [place] [address] [address] Katie Morrissey CRNP [address] [place] [address] Supervision of high risk in third trimester*; 31 weeks gestation of ; Diet controlled gestational diabetes mellitus (GDM) in third trimester Allergies Active Allergy Reactions Criticality Noted Date Comments Gluten Meal 11/18/2016 documented as of this encounter (statuses as of 11/07/2023) Medications Medication Sig Dispensed Refills Start Date End Date Status 19 Oral Tablet Take 1 Tablet by mouth in the morning. Active Pantoprazole Sodium 40 MG Oral Tablet Delayed Release (Protonix)Indicati ons:Gastroesophage al reflux disease TAKE 1 TABLET DAILY 90 Tablet 3 05/27/2023 Active Sertraline HCl 25 MG Oral Tablet (Zoloft) TAKE 1 TABLET DAILY 90 Tablet 3 07/04/2023 Active Ondansetron HCl 4 MG Oral TabletIndications: Nausea and vomiting during Take 1 Tablet by mouth in the morning and 1 Tablet at noon and 1 Tablet before bedtime. 30 Tablet 2 10/11/2023 Active Additional Information Patient not taking.Reported on 11/07/2023 Promethazine HCl 25 MG Oral Tablet (Phenergan)Indicat ions:Nausea and vomiting during Take 1 Tablet by mouth every 6 hours as needed for Nausea. 30 Tablet 1 10/11/2023 Active Additional Information Patient not taking.Reported on 11/07/2023 Breast PumpIndications:Br east feeding status of mother Use as directed. 1 Each 10/11/2023 Active Additional Information Patient not taking.Reported on 11/07/2023 Ferrous Sulfate 325 (65 Fe) MG Oral Tablet (Feosol)Indication s:Antepartum anemia complicating Take 1 Tablet by mouth in the morning and 1 Tablet before bedtime. 60 Tablet 12 10/11/2023 Active Additional Information Patient taking differently:325 mg Oral BID (.AM/PM),Indications: Taking Vitron C once per day, Reported on 10/27/2023 OneTouch Verio Flex System w/Device KitIndications:Ges tational diabetes mellitus (GDM) in second trimester, gestational diabetes method of control unspecified Use to test blood sugars 4 times daily (fasting, 1 hour after breakfast, lunch, and dinner) 1 Kit 10/13/2023 Active OneTouch Delica Lancets 30GIndications:Ges tational diabetes mellitus (GDM) in second trimester, gestational diabetes method of control unspecified Use to test blood sugars 4 times daily (fasting, 1 hour after breakfast, lunch, and dinner) 200 Each 6 10/13/2023 Active OneTouch Verio In Vitro Strip (Glucose Blood)Indications: Diet controlled gestational diabetes mellitus (GDM) in third trimester Monitor blood sugar four times daily (once fasting & 1 hour after breakfast, lunch, and dinner). 150 Strip 6 11/07/2023 Active OneTouch Verio In Vitro Strip (Glucose Blood)Indications: Gestational diabetes mellitus (GDM) in second trimester, gestational diabetes method of control unspecified Use to test blood sugars 4 times daily (fasting, 1 hour after breakfast, lunch, and dinner) 125 Strip 6 10/13/2023 Discontinue d(Refill) documented as of this encounter (statuses as [...] four times per day and report to [facility] for ongoing management. Lab Results Component Value Date/Time 100-G GESTATIONAL GLUCOSE, 1 HOUR - [facility] 225 (H) 10/11/2023 09:35 AM 100-G GESTATIONAL GLUCOSE, 2 HOUR - [facility] 114 10/11/2023 10:35 AM 100-G GESTATIONAL GLUCOSE, 3 HOUR - [facility] 81 10/11/2023 11:29 AM 100-G GESTATIONAL GLUCOSE, FASTING - [facility] 101 (H) 10/11/2023 08:25 AM 10/27/23: M ADAPT consult complete. Enrolled in Current Health. [...] with ADAPT. She has appt today with adult educator. Discussed blood sugar goals and management [...] and folate levels and referral to a house shorer. If hemoglobin levels are below 8 g/dl, we recommend Maternal Medicine ultrasound for growth every 4 weeks after 24 weeks. Consider a blood transfusion if hemoglobin levels fall below 6 g/dL. ([employer] Practice Bulletin Number 95, October,). Consider Venofer transfusions if patient labs supportive of iron deficiency anemia with dosing of 300 mg IV weekly x 3 weeks GBS (group B streptococcus) UTI complicating pre gnancy 05/23/2023 Supervision of high-risk , third [facility] 05/18/2023 Obesity in , antepartum 05/18/2023 Overview: [...] to get more. Never true 05/11/2023 [place] Depression Scale Answer Date Recorded [place] Depression Scale Total 4 05/18/2023 The thought [...] as of this encounter Progress Notes * Katie Morrissey CRNP - 11/07/2023 11:01 AM EDT Images from the original note were not included. MATERNAL MEDICINE VISIT Patient location: HOME. I was in a hospital or clinic location. After connecting through televideo,patient was verified with two unique identifiers. 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 Methods to assure confidentiality were taken. Patient acknowledged consent and understanding of pr ivacy and security of the Telemedicine visit. The patient agreed to participate. Jane Tejada is a 33 year old year old with intrauterine at 31w3d who presents to [facility] for management of diabetes in . CC/HPI: Here for f/u visit. Current issues include: elevated FBS and some PP values; patient feels that blood sugars are improving since meeting with the Drier Operator Current management: diet controlled Diet: gestational diabetes diet Exercise: walking S/P Nutrition visit 11/02/23. Next visit scheduled 12/02/23. Recent growth scan: [facility] US: 11/02/2023 at 30w5d KAYODE: 17.1 cm EFW: 1913 g (83% [place]) Glucose review: She reports her home blood glucose as following: Reports fasting ~10+ hours overnight and is having a bedtime snack consisting of almonds, pretzels with peanut butter, or granola. Hypoglycemia episodes: Denies REVIEW OF SYSTEMS: headaches: no nausea/vomiting: denies [...] (fasting, one hour after breakfast, lunch, and dinner). Encouraged continued reporting via RPM. -Briefly reviewed GDM diet recommendations including, avoiding processed sugars, sweetened drinks, white flour. Recommend Counting carbohydrates - Breakfast: 45 grams carbohydrate, Snack: 15-20 gramscarbohydrate, Lunch: 45 grams carbohydrate, Afternoon Snack: 15-20 grams carbohydrate, Dinner: 45 grams carbohydrate, bedtime snack 20-30 grams carbohydrate. Advised to have protein with every meal and snack, 70 grams total daily. Encourage compliance with Drier Operator. -We discussed eating a bedtime snack and fasting 8-10 hours overnight to help with sugar control inthe fasting timeframe. Reviewed examples of bedtime snack options. -Encouraged 20-30 minutes a day of exercise (walking, light upper body strength training, yoga, stationary cycling, or swimming). -We discussed the goal of euglycemia in order to create a stable environment for the fetus. She is aware that with diabetes are at increased risk for multiple complications to both mother and fetus. -Recommend starting medication for elevated FBS. Reviewed insulin and Metformin options. Reviewed insulin administration instruction. After discussion, patient deferred starting medication at this time despite review of risks. Patient instead plans to modify her bedtime snack and fasting window prior to starting medication. Patient was agreeable to schedule a follow-up ADAPT visit next week - date/time per patient request. -I encouraged the patient to reach out to [facility] in the event that she has any questions regarding diabetes management. RECOMMENDATIONS: Management: continue diet controlled with lifestyle modifications Scheduled on 12/02/[address] Block for growth scan. Follow up for glucose management in 1 week via [facility] [place]. Follow up is scheduled with CHARISSE Patricia on 11/16/2023 @ 11:00AM via telemedicine for ADAPT (Advanced Diabetes And Team). Thank you for allowing us to participate in the care of this patient. Please call with any questions. CHARISSE Clifford 11/07/2023 12:10 PM documented in this encounter Plan of Treatment Upcoming Encounters Date Type Department Care Team (Late st Contact Info) Description 11/07/2023 1:30 PM EDT Office Visit Gynecology/[facility]stetrics [facility] [address] [facility] [place] [address] Rosalba Bustamante CRNP [address] [place] [address] 11/16/2023 11:00 AM EDT Telemedicine Sleeping Car Service Attendant Obstetrics Maternal Medicine, [place] [address] [facility] [address] [place] [address] Royce Obrien CRNP 190 [facility] [address] [place] [address] 11/22/2023 3:45 PM EDT Office Visit Gynecology/Obstetrics [facility] [address] [place] [address] Katie Nunn PA-C [address] [place] [address] [place] [id number] 12/02/2023 10:30 AM EDT Nutrition Services Nutrition, Daija Garzas [address] [place] [address] Mala Tang, CHICHIN [address] [place] [address] 12/02/2023 3:00 PM EDT Office Visit Sleeping Car Service Attendant Obstetrics Maternal Medicine, [place] [address] [place] [address] Sage Block, [address] [place] [address] 12/02/2023 3:00 PM EDT [facility], [place] [address] [place] [address] 12/06/2023 3:45 PM EDT Office Visit Gynecology/Obstetrics Odilia Garzas [address] [facility] [address] Katie Nunn PA-C [address] [place] [id number] 12/13/2023 8:30 AM EDT Office Visit Gynecology/Obstetrics Odilia Zhong [address] [place] [address] Rosalba Bustamante CRNP [address] [place] [address] 12/22/2023 3:45 PM EDT Office Visit Gynecology/Obstetrics Odilia Garzas [address] [place] [address] Katie Nunn PA-C [address] [place] [address] 12/29/2023 3:45 PM EDT Office Visit Gynecology/Obstetrics Odilia Garzas [address] [facility] [address] Katie Nunn PA-C [address] [place] [id number] 01/04/2024 3:15 PM EDT Office Visit Gynecology/Obstetrics Odilia Zhong [address] [place] [address] Aurora Stewart CRNP [address] [place] [address] Health Maintenance Due Date Last Done Comments HPV/Co-Test 02/02/2018 Depression Monitoring 05/25/2020 05/25/2019 Diabetes Screening 06/09/2021 06/09/2018 COVID-19 Vaccine (2022- season) 2022 Influenza Vaccine (FLU shot) (#1) [...] this encounter Visit Diagnoses Diagnosis Supervision of high risk in third trimester- Primary Unspecified high-risk 31 weeks gestation of state, incidental Diet controlled gestational diabetes mellitus (GDM) in third trimester documented in this encounter Additional Health Concerns Active Problems Noted Date Diagnosed Date OB Reminders 10/23/2023 documented as of this encounter Care Teams Pellet Mill Operator Relationship Specialty Start Date End Date Aruna Yoo DO [address] [place] [address] PCP - General Family Medicine 02/08/11 documented as of this encounter
--- OUTSIDE RECORDS SUMMARY | 2023-12-29 12:10 | External Medical Summary | Summary of Care ---
Author Name Unknown Organization [facility] Address [address] [place] [address] Phone [phone] Care Team Providers Care Credit Card Control Clerk Name Role Phone Aruna Yoo DO Primary Care Provider Reason for Visit * Reason Onset Date Comments Referral 10/13/2023 Encounter Details Date Type Department Care Team (Late st Contact Info) Description 10/13/2023 Telephone [employer] Obstetrics Maternal Medicine, [place] [address], [place] [id number] [place], Nurse [employer] [facility] [address] [place], [place] [phone] Referral Allergies Active Allergy Reactions Criticality Noted [...] before bedtime. 60 Tablet 12 10/11/2023 Active [employer] Air GroupTouch Verio Flex System w/Device KitIndications:Gestati onal diabetes [...] and dinner) 125 Strip 6 10/13/2023 Active [employer] Delica Lancets 30GIndications:Gestati onal diabetes mellitus (GDM) [...] money to get more. Never true 05/11/2023 [place] Depression Scale Answer Date Recorded [place] Depression Scale Total 4 05/18/2023 The thought [...] encounter Miscellaneous Notes * Telephone Encounter - Stephanie Brown CCMA [...] the anatomy scan can be done at [facility] in [place] or at [facility] in [place]. Patient stated that she does not want [...] Please schedule for 45 MINUTE ADAPT WITH INTERIOR PANELER, in time frame of within 1 week at location [facility] with the indication of GDM. Please schedule anatomy within 2-3 weeks. Referring Provider: Rosalba Bustamante CRNP documented in this encounter Plan of Treatment Upcoming Encounters Date Type Department Care Team (Late st Contact Info) Description 10/24/2023 2:15 PM EDT Office Visit Gynecology/Obstetrics Odilia Zhong [address] [place] [address] Aurora Stewart CRNP [address] [place] [address] Health Maintenance Due Date Last Done Comments [...] documented as of this encounter Care Teams Credit Card Control Clerk Relationship Specialty Start Date End Date Aruna Yoo DO [address] [place] [address] PCP - General Family Medicine 02/08/11 documented as of this encounter
--- OUTSIDE RECORDS SUMMARY | 2023-12-29 12:10 | External Medical Summary | Summary of Care ---
Author Name Unknown Organization [facility] Address [address] [facility] [address] Phone [phone] Care Team Providers Care Brand Communications Manager Name Role Phone Aruna Yoo DO Primary Care Provider Reason for Visit * Reason Comments Return Visit Encounter Details Date Type Department Care Team (Late st Contact Info) Description 10/18/2023 12:15 PM EDT Office Visit Gynecology/Obstetri [facility] 132 [facility] [place] [address] Carrie Resendiz MD [address] [place] [phone] 28 weeks gestation of *; Diet controlled gestational diabetes mellitus (GDM) in third trimester; Antepartum anemia complicating ; Multigravida of advanced maternal age in third trimester; High-risk in third trimester; Obesity in , antepartum; Anxiety during ; Group B Streptococcus urinary tract infection affecting in first trimester Allergies Active Allergy Reactions Criticality Noted Date Comments Gluten Meal 11/18/2016 documented as of this encounter (statuses as of 10/18/2023) Medications Medication Sig Dispensed Refills Start Date [...] before bedtime. 60 Tablet 12 10/11/2023 Active [employer] LeatherTouch Verio Flex System w/Device KitIndications:Gestati onal diabetes mellitus (GDM) in second trimester, gestational diabetes method of control unspecified Use to test blood sugars 4 times daily (fasting, 1 hour after breakfast, lunch, and dinner) 1 Kit 10/13/2023 Active [employer] Verio In Vitro Strip (Glucose Blood)Indications:Gest ational diabetes mellitus (GDM) in second trimester, gestational diabetes method of control unspecified Use to test blood sugars 4 times daily (fasting, 1 hour after breakfast, lunch, and dinner) 125 Strip 6 10/13/2023 Active Met[employer]x Delica Lancets 30GIndications:Gestati onal diabetes mellitus (GDM) in second trimester, gestational diabetes method of control unspecified Use to test blood sugars 4 times daily (fasting, 1 hour after breakfast, lunch, and dinner) 200 Each 6 10/13/2023 Active documented as of this encounter (statuses as of 10/18/2023) Active Problems Problem Noted Date Diagnosed Date [...] as of this encounter (statuses as of 10/18/2023) Resolved Problems Problem Noted Date Diagnosed Date [...] as of this encounter (statuses as of 10/18/2023) Immunizations Name Administration Dates Next Due DTaP [...] money to get more. Never true 05/11/2023 [place] Depression Scale Answer Date Recorded [place] Depression Scale Total 4 05/18/2023 The thought [...] Sign Reading Time Taken Comments Blood Pressure 110/62 10/18/2023 12:11 PM EDT Pulse - - Temperature - - Respiratory Rate - - Oxygen Saturation - - Inhaled Oxygen Concentration - - Weight 103.9 kg (229 lb) 10/18/2023 12:11 PM EDT Height 157.5 cm (5' 2") 10/18/2023 12:11 PM EDT Body Mass Index 41.88 10/18/2023 12:11 PM EDT documented in this encounter Progress Notes * Carrie Resendiz MD - 10/18/2023 12:15 PM EDT Patient is 33 year old at 28 4/7 weeks who presents for LINETTE visit Denies contractions, leaking of fluid, or vaginal bleeding. Noted good movement Denies headache, blurry vision, RUQ or epigastric pain. Was diagnosed with GDM has not been checking sugars. Got supplies unsure about when she'll start checking Patient is tearful in discussing what has happened, states she wants to discuss the gestational diabetes at her last visit and felt like she was ignored. Explained that 1 of the elevated had resultedbut not the remainder. Also discussed that she had 2 phone calls and messages from the nursing about gestational diabetes iron. States she can not eat a lot of those fluids due to a gluten allergy The patient states she is very frustrated and upset as she has been getting care here for 15 years and has never experienced this in the past. Her 1st was very uncomplicated Latest Reference Range & Units 10/11/23 08:25 10/11/23 09:35 10/11/23 10:35 10/11/23 11:29 100-g Gestational Glucose, 1 Hour 70 - 179 mg/dL 225 (H) 100-g Gestational Glucose, 2 Hour 70 - 154 mg/dL 114 100-g Gestational Glucose, 3 Hour 70 - 139 mg/dL 81 100-g Gestational Glucose, Fasting 70 - 94 mg/dL 101 (H) (H): Data is abnormally high Problem list reviewed BP 110/62 | Ht 1.575 m (5' 2") | Wt 103.9 kg (229 lb) | LMP 04/01/2023 | BMI 41.88 kg/m | BSA 2.13 m FH: 30 FHT: 140 Plan: Labor and preeclampsia warnings reviewed Discuss Diagnosis of GDM- discuss without monitoring we are unsure about how she is diet-controlledversus the need for medical management with insulin. Discuss uncontrolled gestational diabetes can continue to worsen throughout as it is a diseased of the placenta. Would also require monitoring, MFM for ultrasound for growth, NSTs, early delivery and possible need for NICU admission of baby after delivery Discuss increase maternal morbidity and outcomes including was stillbirth, macrosomia, shoulder dystocia and other complications during the and labor. She is unsure about checking her sugars as she is afraid of blood Recommend she follow-up in 1 week, has a scheduled visit with Missy on Again recommend patient see ADAPT and MFM RTC 1 weeks V Martín ALCAZAR PhD documented in this encounter Nursing Notes * Mamta Bergman LPN - 10/18/2023 12:11 PM EDT 28w4d Discuss GDM. documented in this encounter Plan of Treatment Upcoming Encounters Date Type Department Care Team (Late st Contact Info) Description 10/25/2023 8:45 AM EDT Office Visit Gynecology/Obstetrics [facility] [address] [place] [address] Missy Álvarez CN [address] [place] [phone] Health Maintenance Due Date Last Done Comments [...] this topic documented as of this encounter Medical Devices Not on filedocumented as of this encounter Visit Diagnoses Diagnosis 28 weeks gestation of - Primary state, incidental Diet controlled gestational diabetes mellitus (GDM) in third trimester Antepartum anemia complicating Anemia, antepartum Multigravida of advanced maternal age in third trimester High-risk in third trimester Obesity in , antepartum Obesity complicating , childbirth, or the puerperium, antepartum condition or complication Anxiety during Group B Streptococcus urinary tract infection affecting in first trimester documented in this encounter Care Teams Brand Communications Manager Relationship Specialty Start Date End Date Aruna Yoo DO [address] [place] [address] PCP - General Family Medicine 02/08/11 documented as of this encounter
--- OUTSIDE RECORDS SUMMARY | 2023-12-29 12:10 | External Medical Summary | Summary of Care ---
Author Name Unknown Organization [facility] Address [address] [facility] [place] [address] Phone [phone] Care Team Providers Care Shirring Machine Operator Name Role Phone Aruna Yoo DO Primary Care Provider Reason for Visit * Reason Comments Return Visit Encounter Details Date Type Department Care Team (Late st Contact Info) Description 11/07/2023 1:30 PM EDT Office Visit Gynecology/Obstetri Odilia Zhong [address] [place] [address] Rosalba Bustamante CRNP [address] [place] [address] Supervision of high-risk , third trimester*; History of PCOS; Obesity in , antepartum; Multigravida of advanced maternal age in third trimester; Anxiety during ; Group B Streptococcus urinary tract infection affecting in third trimester; Diet controlled gestational diabetes mellitus (GDM) in [...] DAILY 90 Tablet 3 07/04/2023 Active Breast PumpIndications:Br east feeding status of mother [...] C once per day, Reported on 10/27/2023 SefairaTouch Verio Flex System w/Device KitIndications:Ges tational diabetes mellitus (GDM) in second trimester, gestational diabetes method of control unspecified Use to test blood sugars 4 times daily (fasting, 1 hour after breakfast, lunch, and dinner) 1 Kit 10/13/2023 Active SefairaTouch Delica Lancets 30GIndications:Ges tational diabetes mellitus (GDM) in second trimester, gestational diabetes method of control unspecified Use to test blood sugars 4 times daily (fasting, 1 hour after breakfast, lunch, and dinner) 200 Each 6 10/13/2023 Active SefairaTouch Gallery AlSharqio In Vitro Strip (Glucose Blood)Indications: Diet controlled gestational diabetes mellitus (GDM) in third trimester Monitor blood sugar four times daily (once fasting & 1 hour after breakfast, lunch, and dinner). 150 Strip 6 11/07/2023 Active Ondansetron HCl 4 MG Oral TabletIndications: Nausea and vomiting during Take 1 Tablet by mouth in the morning and 1 Tablet at noon and 1 Tablet before bedtime. 30 Tablet 2 10/11/2023 4 Discontinue d(Medicatio n List Clean Up) Promethazine HCl 25 MG Oral Tablet (Phenergan)Indicat ions:Nausea and vomiting during Take 1 Tablet by mouth every 6 hours as needed for Nausea. 30 Tablet 1 10/11/2023 4 Discontinue d(Medicatio n List Clean Up) documented as of this encounter (statuses as [...] four times per day and report to [facility] for ongoing management. Lab Results Component Value [...] with ADAPT. She has appt today with software educator. Discussed blood sugar goals and management [...] and folate levels and referral to a interior mechanic. If hemoglobin levels are below 8 g/dl, we recommend Maternal Medicine ultrasound for growth every 4 weeks after 24 weeks. Consider a blood transfusion if hemoglobin levels fall below 6 g/dL. ([employer] Practice Bulletin Number 95, October,). Consider Venofer [...] following growth with radiology; will transition to [facility]. AMA (advanced maternal age) multigravida 35+ Overview: [...] money to get more. Never true 05/11/2023 [place] Depression Scale Answer Date Recorded [place] Depression Scale Total 4 05/18/2023 The thought [...] Sign Reading Time Taken Comments Blood Pressure 108/72 11/07/2023 1:37 PM EDT Pulse - - Temperature - - Respiratory Rate - - Oxygen Saturation - - Inhaled Oxygen Concentration - - Weight 103 kg (227 lb) 11/07/2023 1:37 PM EDT Height - - Body Mass Index 41.52 10/24/2023 2:08 PM EDT documented in this encounter Progress Notes * Jillian Avelar LPN - 11/07/2023 1:38 PM EDT 31w3d Denies vaginal bleeding/rom + movement No new concerns * Rosalba Bustamante CRNP - 11/07/2023 1:32 PM EDT 31w3d Good movement. No ctx, leaking, bleeding. Feels well at current Zoloft dose. GDM, follows with ADAPT. Completed MFM growth scan last week. Repeat CBC today. 2 week return CHARISSE Galindo documented in this encounter Plan of Treatment Upcoming Encounters Date Type Department Care Team (Late st Contact Info) Description 11/16/2023 11:00 AM EDT Telemedicine Cattle Manager Obstetrics Maternal Medicine, [place] 190 [facility] [address] [place] [address] Royce Obrien CRNP 190 [facility] [address] [place] [address] 11/22/2023 3:45 PM EDT Office Visit Gynecology/Obstetrics [facility] 132 [place] [address] Katie Nunn PA-C [address] [place] [address] 12/02/2023 10:30 AM EDT Nutrition Services Nutrition, [facility] 132 [place] [address] Mala Tang RDN 132 [facility] [place] [address] 12/02/2023 3:00 PM EDT Office Visit Cattle Manager Obstetrics Maternal Medicine, [place] [address] [place] [address] Sage Block DO [address] [facility] [place] [address] 12/02/2023 3:00 PM EDT Imaging Radiology [facility], [place] [address] [place] [address] 12/06/2023 3:45 PM EDT Office Visit Gynecology/Obstetrics [facility] [address] [place] [address] Katie Nunn PA-C [address] [place] [address] 12/13/2023 8:30 AM EDT Office Visit Gynecology/Obstetrics [facility] [address] [place] [address] Rosalba Bustamante CRNP [address] [place] [address] 12/22/2023 3:45 PM EDT Office Visit Gynecology/Obstetrics [facility] [address] [place] [address] Katie Nunn PA-C [address] [place] [address] 12/29/2023 3:45 PM EDT Office Visit Gynecology/Obstetrics Od[facility] [address] [place] [address] Katie Nunn PA-C [address] [place] [address] 01/04/2024 3:15 PM EDT Office Visit Gynecology/Obstetrics [facility] [address] [place] [address] Aurora Stewart CRNP [address] [place] [address] Pending Results Name Type Priority Associated Diagnoses Date /Time CBC WITH WBC DIFFERENTIAL AND ANEMIA REFLEX WORKUP Lab Routine Antepartum anemia complicating 11/07/2023 1:50 PM EDT Scheduled Orders Name Type Priority Associated Diagnoses Orde r Schedule CBC WITH WBC DIFFERENTIAL AND ANEMIA REFLEX WORKUP Lab Routine Antepartum anemia complicating Expected: 11/07/2023, Expires: 11/06/2024 Health Maintenance Due Date Last Done Comments [...] urinary tract infection affecting in third trimester Diet controlled gestational diabetes mellitus (GDM) in third trimester Antepartum anemia complicating Anemia, antepartum documented in this encounter Additional Health Concerns Active Problems Noted Date Diagnosed Date OB Reminders 10/23/2023 documented as of this encounter Care Teams Shirring Machine Operator Relationship Specialty Start Date End Date Aruna Yoo DO [facility] [address] [place], [place] [id number] PCP - General Family Medicine 02/08/11 documented as of this encounter
--- OUTSIDE RECORDS SUMMARY | 2023-12-29 12:10 | External Medical Summary | Summary of Care ---
Author Name Unknown Organization [facility] Address [address] [place] [address] Phone [phone] Care Team Providers Care Security System Administrator Name Role Phone Aruna Yoo DO Primary Care Provider Reason for Visit * Reason Onset Date Comments Home Monitoring Orders Only 10/28/2023 Encounter Details Date Type Department Care Team (Late st Contact Info) Description 10/28/2023 Home Monitoring Care Coordination [address] [place], [place] [id number] Nae Lewis CRNP [address] [place], [place] [phone] GDM (gestational diabetes mellitus)* Allergies Active Allergy Reactions Criticality Noted Date Comments Gluten Meal 11/18/2016 documented as of this encounter (statuses as of 10/28/2023) Medications Medication Sig Dispensed Refills Start Date [...] Nausea. 30 Tablet 1 10/11/2023 Active Breast PumpIndications:Natasha st feeding status of [...] Active OneTouch Verio In Vitro Strip (Glucose Blood)Indications:Ge stational diabetes mellitus (GDM) in second trimester, gestational diabetes method of control unspecified Use to test blood sugars 4 times daily (fasting, 1 hour after breakfast, lunch, and dinner) 125 Strip 6 10/13/2023 Active OneTouch Delica Lancets 30GIndications:Gesta tional diabetes mellitus (GDM) in second trimester, gestational diabetes method of control unspecified Use to test blood sugars 4 times daily (fasting, 1 hour after breakfast, lunch, and dinner) 200 Each 6 10/13/2023 Active documented as of this encounter (statuses as of 10/28/2023) Active Problems Problem Noted Date Diagnosed Date [...] four times per day and report to [facility] for ongoing management. Lab Results [...] to report blood sugars each week for [facility] review Last Assessment & Plan: CONSIDERATIONS: Reviewed etiology and risks associated with gestational diabetes mellitus (GDM), including risks to , fetus, and maternal progression to Type 2 DM. Instructed on proper use of glucometer; supplies ordered, if indicated. Advised that life-long screening for diabetes is recommended every 1-3 years. RECOMMENDATIONS: Recommend monitoring blood sugars with daily fasting blood sugar (maintained at less than or equal to 95) and 1 hour postprandial measurements (maintained at less than or equal to 140). Medications should be adjusted to maintain these target values. Report levels to [facility] (Maternal- Medicine) via [facility]. Recommend nutrition consult with RDN (Registered Dietitian Disk Sander). Lifestyle changes are also indicated including optimizing gestational weight gain and physical activity of 30 minutes per day, if not otherwise contraindicated in . Insulin is preferred if medications are indicated to optimize euglycemia. Metformin (preferred over glyburide) may also be used in some circumstances. Reviewed the risks and benefits of each. Recommend ultrasound, surveillance and delivery as follows: A1GDM, delivery should be accomplished by 41w0d. A2GDM, recommend growth assessment with MFM every 4 weeks, initiate surveillance with twice weekly NSTs at 32 weeks and continue until delivery at 39 weeks. Recommend intrapartum monitoring every 1-2 hours (A2GDM) or every 4 hours (A1GDM) and treat with insulin if indicated. Recommend 2-hour glucose tolerance testing with 75-gram glucose load 6-8 weeks . Antepartum anemia complicating 024 Overview: Hgb 11.2 [...] and folate levels and referral to a machine repairman. If hemoglobin levels are below 8 g/dl, we recommend Maternal Medicine ultrasound for growth every 4 weeks after 24 weeks. Consider a blood transfusion if hemoglobin levels fall below 6 g/dL. ([employer] Kettle Fry Cook Operator Practice Bulletin Number 95, October,). Consider Venofer transfusions if patient labs supportive of iron deficiency anemia with dosing of 300 mg IV weekly x 3 weeks GBS (group B streptococcus) UTI complicating pre gnancy 05/23/2023 Supervision of high-risk , third [facility] 05/18/2023 Obesity in , antepartum 05/18/2023 Overview: Pre-gravid BMI 38.77 (#212, 5'2") Last Assessment & Plan: CONSIDERATIONS: Discussed obstetrical risks associated with class II obesity (pre- BMI of 35 to 39.9) Reviewed that the accuracy of ultrasound at diagnosing anomalies is significantly decreased for women with an increased BMI. RECOMMENDATIONS: Recommend restricting weight gain during to 11-20 pounds. Patient should be referred for a nutrition consult. Recommend evaluation for signs and symptoms (snoring, excessive daytime sleepiness witnessed apnea or unexplained hypoxia) of obstructive sleep apnea. If any of these are present, referral to Sleep Medicine specialist for further evaluation should be considered. Recommend Maternal- Medicine ultrasound for anatomy at 20 weeks and for growth every 4 weeks thereafter. For patients with Class 2 obesity, we recommend weekly surveillance starting at 37 weeks. AMA (advanced maternal age) multigravida 35+ Overview: Ms. Tejada will be 33 years-old at time of delivery (SCOOTER 01/06/24) She had low-risk genetic screening in this . Last Assessment & Plan: CONSIDERATIONS: We reviewed the most pertinent aspects of the following: Advanced maternal age (AMA) refers to a woman with a lovell who will be at the age of 35 or older at the estimated time of delivery and may be associated with increased morbidity. Prior to the appointment the patient has had genetic screening and it was reported as low-risk. Cell-free DNA (cffDNA) screening is a genetic screening option that analyzes maternal blood for DNA that is placental in origin and targets the following conditions: Trisomy 21 (Down syndrome), trisomy 18, trisomy 13, and sex chromosome abnormalities such as monosomy X (Nina syndrome), and sex chromosome trisomies (triple X, Klinefelter syndrome, XYY). It may also evaluate for other genetic alterations such as microdeletions, depending on the specific test. It reveals the sex of the fetus but should generally not be performed solely for this indication. The screening test can be performed after 10 weeks gestation. Results provided are NOT diagnostic, but provide a risk estimate. Types of results include low-risk/negative, high-risk/positive, and inconclusive. Low-risk results convey a low risk for the conditions screened, while high-risk results will indicate which condition is high risk and the likelihood of the condition based on the results. High-risk and inconclusive results would require follow up with a Maternal- Medicine genetic counselor. Amniocentesis would be recommended in the setting of high-risk results. Results are available 5-7 days after the test is completed. Cost of cffDNA screening is dependent on health insurance plan. Brochure provided to patient with contact information to call and inquire about insurance coverage and [place] ([place] [address]). Patient aware not all insurances cover this test. The performing laboratory will bill the insurance directly. Offer MSAFP only (not Quad Screen) at 16-22 weeks if screening for open neural tube defects is desired. Amniocentesis for diagnosis of chromosomal abnormalities is also available. The risk of complications from the procedure and that risk is 1 in 500 (0.2%). In addition to the risk of chromosomal abnormalities, there is an increased risk of congenital/structural anomalies. RECOMMENDATIONS: Recommend MFM anatomy ultrasound at 19-20 weeks gestation. Anxiety during 05/18/2023 Overview: Denies current anxiety [...] as of this encounter (statuses as of 10/28/2023) Resolved Problems Problem Noted Date Diagnosed Date Resolved Date GBS (group B Streptococcus c arrier), +RV culture, currently 03/26/2021 05/17/2023 , normal first 09/10/202005/05 Binge eating disorder 06/02/20182023 Overweight (BMI 25.0-29.9) 07/03/2011 1 05/21/2017 Overview: BMI= 28.72 07/03/11 documented as of this encounter (statuses as of 10/28/2023) Immunizations Name Administration Dates Next Due DTaP [...] money to get more. Never true 05/11/2023 [place] Depression Scale Answer Date Recorded [place] Depression Scale Total 4 05/18/2023 The thought [...] as of this encounter Progress Notes * [facility] Health Cut File Clerk - 10/28/2023 11:06 AM EDT Patient has been successfully enrolled to the [id number] Diabetes Management in program. Standard alarm settings have been set as follows: Singular glucose level > 200 Singular glucose level < 60 Patient has been advised to take blood sugar four times a day (fasting upon waking, and one hour after each meal). Patient has been oriented to remote patient monitoring, assisted with initial device set-up, and provided with instruction and education regarding the program. Patient understands that this monitoring should not be used as a replacement for emergency and/or urgent care. If patient experiences any urgent symptoms, they are aware to call office/supervisor conditioning yard provider for additional instructions. In emergency situations, they will report directly to the ED for further evaluation. If you would like to customize the alert parameters and/or instructions for this patient, please let me know and we can have them changed documented in this encounter Plan of Treatment Upcoming Encounters Date Type Department Care Team (Late st Contact Info) Description 11/02/2023 10:45 AM EDT Office Visit Machinist First Class Obstetrics Maternal Medicine, [place] [address] [place] [address] Didi Bryant DO [address] [place] [address] 11/02/2023 10:45 AM EDT [facility] [address] [place] [address] 11/02/2023 3:00 PM EDT Nutrition Services NutritionDaija [address] [place] [address] Mala Tang RDN [address] [place] [address] 11/08/2023 8:45 AM EDT Office Visit Gynecology/Obstetrics Odilia Zhong [address] [place] [address] Rosalba Bustamante CRNP [address] [place] [address] 11/22/2023 3:45 PM EDT Office Visit Gynecology/Obstetrics [facility] [address] [place] [address] Katie Nunn PA-C [address] [place] [place] [address] 12/06/2023 3:45 PM EDT Office Visit Gynecology/Obstetrics [facility] [address] [place] [address] Katie Nunn PA-C [address] [place] [address] 12/13/2023 8:30 AM EDT Office Visit Gynecology/Obstetrics [facility] [address] [place] [address] Rosalba Bustamante CRNP [address] [place] [address] 12/22/2023 3:45 PM EDT Office Visit Gynecology/Obstetrics [facility] [address] [place] [address] Katie Nunn PA-C [address] [place] [address] 12/29/2023 3:45 PM EDT Office Visit Gynecology/Obstetrics [facility] [address] [place] [address] Katie Nunn PA-C [address] [place] [address] 01/04/2024 3:15 PM EDT Office Visit Gynecology/Obstetrics [facility] [address] [place] [address] Aurora Stewart CRNP [address] [place] [address] Health Maintenance Due Date Last Done Comments [...] as of this encounter Visit Diagnoses Diagnosis GDM (gestational diabetes mellitus)- Primary Abnormal maternal glucose tolerance, complicating , childbirth, or the puerperium, unspecified as to episode of care documented in this encounter Additional Health Concerns Active Problems Noted Date Diagnosed Date OB Reminders 10/23/2023 documented as of this encounter Care Teams Security System Administrator Relationship Specialty Start Date End Date Aruna Yoo DO [address] [place] [address] PCP - General Family Medicine 11/7/11 documented as of this encounter
--- OUTSIDE RECORDS SUMMARY | 2023-12-29 12:10 | External Medical Summary | Summary of Care ---
Author Name Unknown Organization [facility] Address [address] [place] [address] Phone [phone] Care Team Providers Care Can Tester Name Role Phone Aruna Yoo DO Primary Care Provider Reason for Visit * Reason Comments Follow Up Gestational diabetes Encounter Details Date Type Department Care Team ([facility] st Contact Info) Description 11/07/2023 11:00 AM EDT Telemedicine Generator Worker Obstetrics Maternal Medicine, [place] [address] [address] Katie Morrissey CRNP [address] [place] [address] Supervision of high risk in third trimester*; [...] four times per day and report to [facility] for ongoing management. Lab Results [...] with ADAPT. She has appt today with nursing educator. Discussed blood sugar goals and management [...] and folate levels and referral to a lacquer machine feeder. If hemoglobin levels are below 8 g/dl, we recommend Maternal Medicine ultrasound for growth every 4 weeks after 24 weeks. Consider a blood transfusion if hemoglobin levels fall below 6 g/dL. ([employer] and [employer] Instrument Cable Fabricator Practice Bulletin Number 95, October,). Consider Venofer transfusions if patient labs supportive of iron deficiency anemia with dosing of 300 mg IV weekly x 3 weeks GBS (group B streptococcus) UTI complicating pre gnancy 05/23/2023 Supervision of high-risk , third [facility] 05/18/2023 Obesity in , antepartum 05/18/2023 [...] money to get more. Never true 05/11/2023 [place] Depression Scale Answer Date Recorded [place] Depression Scale Total 4 05/18/2023 The thought [...] two unique identifiers. Patient (or authorized legal wine sales representative) was then informed that this was a Telemedicine visit and being conducted confidentially over secure lines. Methods to assure confidentiality were taken. Patient acknowledged consent and understanding of pr ivacy and security of the Telemedicine visit. The patient agreed to participate. Jane Tejada is a 33 year old year old with intrauterine at 31w3d who presents to [facility] for management of diabetes in . CC/HPI: Here for f/u visit. Current issues include: elevated FBS and some PP values; patient feels that blood sugars are improving since meeting with the Blanket Folder Current management: diet controlled Diet: gestational diabetes diet Exercise: walking S/P Nutrition visit 11/02/23. Next visit scheduled 12/02/23. Recent growth scan: [facility] US: 11/02/2023 at 30w5d KAYODE: 17.1 cm [...] 70 grams total daily. Encourage compliance with Blanket Folder. -We discussed eating a bedtime snack and [...] encouraged the patient to reach out to [facility] in the event that she has any questions regarding diabetes management. RECOMMENDATIONS: Management: continue diet controlled with lifestyle modifications Scheduled on 12/02/[address] Block for growth scan. Follow up for glucose management in 1 week via [facility]. Follow up is scheduled with CHARISSE [...] 11/07/2023 1:30 PM EDT Office Visit Gynecology/Obstetrics [facility] [place] [address] Rosalba Bustamante CRNP [address] [place] [address] 11/16/2023 11:00 AM EDT Telemedicine Generator Worker Obstetrics Maternal Medicine, [place] 190 [facility] [address] [place] [address] Royce Obrien CRNP [address] [facility] [address] [place] [address] 11/22/2023 3:45 PM EDT Office Visit Gynecology/Obstetrics [facility] [address] [place] [address] Katie Nunn PA-C [address] [place] [address] [place] [address] 12/02/2023 10:30 AM EDT Nutrition Services Nutrition, [facility] [address] [place] [address] Mala Tang, CHICHIN [address] [place] [address] 12/02/2023 3:00 PM EDT Office Visit Generator Worker Obstetrics Maternal Medicine, [place] [address] [place] [address] Sage Block, [address] [place] [address] 12/02/2023 3:00 PM EDT [facility], [place] [address] [place] [address] 12/06/2023 3:45 PM EDT Office Visit Gynecology/Obstetrics [facility] [address] [facility] [place] [address] Katie Nunn PA-C [address] [place] [address] 12/13/2023 8:30 AM EDT Office Visit Gynecology/Obstetrics Od[facility] Zhong [address] [place] [address] Rosalba Bustamante CRNP [address] [place] [address] 12/22/2023 3:45 PM EDT Office Visit Gynecology/Obstetrics [facility] [address] [place] [address] Katie Nunn PA-C [address] [place] [address] 12/29/2023 3:45 PM EDT Office Visit Gynecology/Obstetrics [facility] [address] [facility] [place] [address] Katie Nunn PA-C [address] [place] [address] 01/04/2024 3:15 PM EDT Office Visit Gynecology/Obstetrics [facility]ong [address] [place] [address] Aurora Stewart CRNP [address] [place] [address] Health Maintenance Due Date Last Done Comments [...] documented as of this encounter Care Teams Can Tester Relationship Specialty Start Date End Date Aruna Yoo DO [address] [place] [address] PCP - General Family Medicine 02/08/11 documented as of this encounter
--- OUTSIDE RECORDS SUMMARY | 2023-12-29 12:10 | External Medical Summary | Summary of Care ---
Author Name Unknown Organization [facility] Address [address] [facility] [place] [address] Phone [phone] Care Team Providers Care Profiler Name Role Phone Aruna Yoo DO Primary Care Provider Reason for Visit * Reason Comments Return Visit Encounter Details Date Type Department Care Team (Latest Contact Info) Description 10/24/2023 2:15 PM EDT Office Visit Gynecology/Obstetric s Odilia Zhong [address] [place] [address] Aurora Stewart CRNP [address] [place] [address] High-risk in third trimester*; Obesity in , antepartum; Multigravida of advanced maternal age in third trimester; Anxiety during ; Group B Streptococcus urinary tract infection affecting , antepartum; Diet controlled gestational diabetes mellitus (GDM) in [...] before bedtime. 60 Tablet 12 10/11/2023 Active gloStream Verio Flex System w/Device KitIndications:Gestati onal diabetes mellitus (GDM) in second trimester, gestational diabetes method of control unspecified Use to test blood sugars 4 times daily (fasting, 1 hour after breakfast, lunch, and dinner) 1 Kit 10/13/2023 Active [email or web address] In Vitro Strip (Glucose Blood)Indications:Gest ational diabetes mellitus (GDM) in second trimester, gestational diabetes method of control unspecified Use to test blood sugars 4 times daily (fasting, 1 hour after breakfast, lunch, and dinner) 125 Strip 6 10/13/2023 Active gloStream Delica Lancets 30GIndications:Gestati onal diabetes mellitus (GDM) [...] money to get more. Never true 05/11/2023 L[place] Depression Scale Answer Date Recorded [place] Depression Scale Total 4 05/18/2023 The thought [...] Sign Reading Time Taken Comments Blood Pressure 106/72 10/24/2023 2:08 PM EDT Pulse - - Temperature - - Respiratory Rate - - Oxygen Saturation - - Inhaled Oxygen Concentration - - Weight 103.9 kg (229 lb) 10/24/2023 2:08 PM EDT Height 157.5 cm (5' 2") 10/24/2023 2:08 PM EDT Body Mass Index 41.88 10/24/2023 2:08 PM EDT documented in this encounter Progress Notes * Aurora Stewart CRNP - 10/24/2023 2:35 PM EDT 29w3d Has started checking blood sugars. Upon review of sharifa, all numbers were green, meaning in range, but parameters on machine were not correct. Adjusted values for 1hr PP goals, and quite a few were outof range. Meeting with [facility] later this week,has not met with anyone thus far regarding the GDM. Encouraged her to document meals when readings are out of range. She has no other concerns today. Taking iron supplement, adding in Vitamin C today. Baby is active. Denies contractions, bleeding, LOF. Has a growth u/s scheduled with [facility] at the end of the month. CHARISSE Alejandro documented in this encounter Nursing Notes * Mamta Bergman LPN - 10/24/2023 2:13 PM EDT 29w3d Has been checking blood sugars, reports good readings. Has mfm scheduled later this week. documented in this encounter Plan of Treatment Upcoming Encounters Date Type Department Care Team (Late st Contact Info) Description 10/27/2023 10:30 AM EDT Telemedicine Rn Social Services Obstetric MFM [facility] [address] [place] [address] Nae Lewis CRNP [address] [place] [address] 11/02/2023 10:45 AM EDT Office Visit Rn Social Services Obstetrics Maternal Medicine, [place] [address] [place] [address] Didi Bryant [address] [place] [address] 11/02/2023 10:45 AM EDT Imaging Radiology [facility] [place], [place] [address] [place] [address] 11/08/2023 8:45 AM EDT Office Visit Gynecology/Obstetrics [facility] [address] [facility] [address] Rosalba Bustamante CRNP [address] [facility] [place] [address] 11/22/2023 3:45 PM EDT Office Visit Gynecology/Obstetrics [facility] [address] [facility] [place] [address] Katie Nunn PA-C [address] [place] [address] [place] [address] 12/06/2023 3:45 PM EDT [facility] [address] [place] [address] Katie Nunn PA-C [address] [place] [address] 12/13/2023 8:30 AM EDT Office Visit Gynecology/Obstetrics [facility] [address] [place] [address] Rosalba Bustamante CRNP [address] [place] [address] 12/22/2023 3:45 PM EDT Office [facility] [address] [place] [address] Katie Nunn PA-C [address] [place] [address] 12/29/2023 3:45 PM EDT Office [facility] [address] [place] [address] Katie Nunn PA-C [address] [place] [address] 01/04/2024 3:15 PM EDT Office Visit Gynecology/Obstetrics [facility] [address] [place] [address] Aurora Stewart CRNP [address] [place] [address] Health Maintenance Due Date Last Done Comments [...] as of this encounter Visit Diagnoses Diagnosis High-risk in third trimester- Primary Obesity in , antepartum Obesity complicating , childbirth, or the puerperium, antepartum condition or complication Multigravida of advanced maternal age in third trimester Anxiety during Group B Streptococcus urinary tract infection affecting , antepartum Diet controlled gestational diabetes mellitus (GDM) in third trimester Antepartum anemia complicating Anemia, antepartum documented in this encounter Additional Health Concerns Active Problems Noted Date Diagnosed Date OB Reminders 10/23/2023 documented as of this encounter Care Teams Profiler Relationship Specialty Start Date End Date Aruna Yoo DO [address] [place] [address] PCP - General Family Medicine 02/08/11 documented as of this encounter
--- OUTSIDE RECORDS SUMMARY | 2023-12-29 12:10 | External Medical Summary | Summary of Care ---
Author Name Unknown Organization [facility] Address [address] [place] [address] Phone [phone] Care Team Providers Care Watch Assembly Instructor Name Role Phone Aruna Yoo DO Primary Care Provider Reason for Visit * Reason Comments Ultrasound Encounter Details Date Type Department Care Team (Late st Contact Info) Description 11/02/2023 10:45 AM EDT Office Visit [employer] Employee Obstetrics Maternal Medicine, [place] [address], [place] [id number] Didi Bryant [address] [place] [address] Obesity in , antepartum*; Diet controlled gestational diabetes mellitus (GDM) in third trimester; Multigravida of advanced maternal age in third trimester; Encounter for anatomic survey; 30 weeks gestation of ; Other specified related conditions, second trimester Allergies Active Allergy Reactions Criticality Noted [...] Nausea. 30 Tablet 1 10/11/2023 Active Breast PumpIndications:[place] st feeding status of mother Use as directed. 1 Each 10/11/2023 Active Ferrous Sulfate 325 (65 Fe) MG Oral Tablet (Feosol)Indications: Antepartum anemia complicating Take 1 Tablet by mouth in the morning and 1 Tablet before bedtime. 60 Tablet 12 10/11/2023 Active Additional Information Patient taking differently:325 mg Oral BID (.AM/PM),Indications: Taking Vitron C once per day, Reported on 10/27/2023 QuitbitTouch Verio Flex System w/Device KitIndications:Gesta tional diabetes mellitus (GDM) in second trimester, gestational diabetes method of control unspecified Use to test blood sugars 4 times daily (fasting, 1 hour after breakfast, lunch, and dinner) 1 Kit 10/13/2023 Active QuitbitToCore Competenceio In Vitro Strip (Glucose Blood)Indications:Ge stational diabetes mellitus (GDM) in second trimester, gestational diabetes method of control unspecified Use to test blood sugars 4 times daily (fasting, 1 hour after breakfast, lunch, and dinner) 125 Strip 6 10/13/2023 Active QuitbitTouch Delica Lancets 30GIndications:Gesta tional diabetes mellitus (GDM) [...] four times per day and report to [facility] for ongoing management. Lab Results Component [...] with [facility]. She has appt today with educator senior clinical. Discussed blood sugar goals and management in [...] and folate levels and referral to a pile driving technician. If hemoglobin levels are below 8 g/dl, we recommend Maternal Medicine ultrasound for growth every 4 weeks after 24 weeks. Consider a blood transfusion if hemoglobin levels fall below 6 g/dL. ([employer] Practice Bulletin Number 95, October,). Consider Venofer [...] money to get more. Never true 05/11/2023 Gerry Depression Scale Answer Date Recorded Gerry Depression Scale Total 4 05/18/2023 The thought [...] as of this encounter Progress Notes * Didi Bryant DO - 11/02/2023 12:37 PM EDT MATERNAL MEDICINE VISIT Jane Tejada presented today at 30w5d for an ultrasound and follow-up of her high risk . She was seen for the following indications: Problem List Items Addressed This Visit Obesity in , antepartum - Primary Has been following growth with radiology; will transition to MFM. AMA (advanced maternal age) multigravida 35+ Low risk NIPT and msAFP appreciated. GDM (gestational diabetes mellitus) Working with [facility]. She has appt today with educator senior clinical. Discussed blood sugar goals and management in the event that majority of sugars are elevated. Questions answered. Other Visit Diagnoses Encounter for anatomic survey 30 weeks gestation of We reviewed today's ultrasound findings. Normal growth with no evidence of structural abnormalities, however exam suboptimal dueto advanced gestational age and position. (For full details, please refer to ultrasound report provided separately). Ms. Tejada's questions were answered to her satisfaction. She was advised to contact our office or her OB provider for any additional questions regarding her . RECOMMENDATIONS: Recommend follow up ultrasound with MFM in 4 weeks for growth secondary to above indications. Thank you for allowing us to participate in the care of this patient. Please call with any questions. Didi Bryant DO 11/02/2023 12:38 PM documented in this encounter Miscellaneous Notes * Assessment & Plan Note - Didi Bryant DO - 11/02/2023 12:37 PM EDT Associated Problem(s): AMA (advanced maternal age) multigravida 35+ Low risk NIPT and msAFP appreciated. * Assessment & Plan Note - Didi Bryant DO - 11/02/2023 12:37 PM EDT Associated Problem(s): Obesity in , antepartum Has been following growth with radiology; will transition to MFM. * Assessment & Plan Note - Didi Bryant DO - 11/02/2023 12:09 PM EDT Associated Problem(s): GDM (gestational diabetes mellitus) Working with [facility]. She has appt today with educator senior clinical. Discussed blood sugar goals and management in the event that majority of sugars are elevated. Questions answered. documented in this encounter Plan of Treatment Upcoming Encounters Date Type Department Care Team (Late st Contact Info) Description 11/02/2023 3:00 PM EDT Nutrition Services Nutrition, [facility] [address] [place] [address] Mala Tang RDN [address] [place] [address] 11/08/2023 8:45 AM EDT [facility] [address] [place] [address] Rosalba Bustamante CRNP [address] [place] [address] 11/22/2023 3:45 PM EDT Office Visit Gynecology/Obstetrics [facility] [address] [place] [address] Katie Nunn PA-C [address] [place] [address] 12/06/2023 3:45 PM EDT Office Visit Gynecology/Obstetrics [facility] [address] [place] [address] Katie Nunn PA-C [address] [place] [address] 12/07/2023 10:15 AM EDT Imaging Radiology, [address] [address] 12/13/2023 8:30 AM EDT Office Visit Gynecology/Obstetrics [facility] [address] [place] [address] Rosalba Bustamante CRNP [address] [place] [address] 12/22/2023 3:45 PM EDT Office Visit Gynecology/Obstetrics [facility] [address] [place] [address] Katie Nunn PA-C [address] [place] [address] 12/29/2023 3:45 PM EDT Office Visit Gynecology/Obstetrics [facility] [address] [place] [address] Katie Nunn PA-C [address] [place] [address] 01/04/2024 3:15 PM EDT Office Visit Gynecology/Obstetrics [facility] [address] [place] [address] Aurora Stewart CRNP [address] [place] [address] Scheduled Orders Name Type Priority Associated Diagnoses Orde r Schedule MFM US PREG FOLLOW UP EACH FETUS Medical Imaging Routine Obesity in , antepartum Diet controlled gestational diabetes mellitus (GDM) in third trimester Multigravida of advanced maternal age in third trimester Encounter for anatomic survey 30 weeks gestation of Other specified related conditions, second trimester 2 Occurrences starting 11/02/2023 until 01/06/2024 Health Maintenance Due Date Last Done Comments [...] as of this encounter Visit Diagnoses Diagnosis Obesity in , antepartum- Primary Obesity complicating , childbirth, or the puerperium, antepartum condition or complication Diet controlled gestational diabetes mellitus (GDM) in third trimester Multigravida of advanced maternal age in third trimester Encounter for anatomic survey 30 weeks gestation of state, incidental Other specified related conditions, second trimester documented in this encounter Additional Health Concerns Active Problems Noted Date Diagnosed Date OB Reminders 10/23/2023 documented as of this encounter Care Teams Watch Assembly Instructor Relationship Specialty Start Date End Date Aruna Yoo DO [address] [place] [address] PCP - General Family Medicine 02/08/11 documented as of this encounter
--- OUTSIDE RECORDS SUMMARY | 2023-12-29 12:10 | External Medical Summary | Summary of Care ---
Author Name Unknown Organization [facility] Address [address] [place] [address] Phone [phone] Care Team Providers Care Community Relations Representative Name Role Phone Aruna Yoo DO Primary Care Provider Reason for Referral * Evaluate & Treat - Unlimited Visits (Within 3 days (urgent)) - Authorized Specialty Diagnoses / Procedures Referred By Contac t Referred To Contact Residential Carpenter Diagnoses Diet controlled gestational diabetes mellitus (GDM) in third trimester Nae Lewis CRNP [address] [place] [address] Referral ID Status Reason Start Date Expiration Date Visits Requested Visits Authorized [id number] Authorized Specialty Services Required 10/27/2023 1 1 Question Answer Referral Priority Within 3 days (urgent) Where should this appointment be scheduled? [facility] Type Chronic Disease Management Chronic Disease Management Diabetes in Alarm Settings Standard per protocol Comments GDM - Has OneTouch Verio Reason for Visit * Reason Comments Consultation Supervision of High Risk * Evaluate & Treat - Unlimited Visits (Within 10 days (routine)) - Authorized Specialty Diagnoses / Procedures Referred By Contac t Referred To Contact Obstetrics/Gynecology / Maternal Medicine Diagnoses Gestational diabetes mellitus (GDM) in second trimester, gestational diabetes method of control unspecified [facility] [address] [facility] [id number] Referral ID Status Reason Start Date Expiration Date Visits Requested Visits Authorized [id number] Authorized Specialty Services Required 10/13/[phone] Encounter Details Date Type Department Care Team (Late st Contact Info) Description 10/27/2023 10:30 AM EDT 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 MFM [address], [address] [place] [address] Nae Lewis CRNP [address] [place] [address] Diet controlled gestational diabetes mellitus (GDM) in third trimester*; Multigravida of advanced maternal age in third trimester; Antepartum anemia complicating ; Anxiety during ; Obesity in , antepartum; History of PCOS; Supervision of high-risk , third trimester; Class 2 obesity Allergies Active Allergy Reactions Criticality Noted Date Comments Gluten Meal 11/18/2016 documented as of this encounter (statuses as of 10/27/2023) Medications Medication Sig Dispensed Refills Start Date [...] Nausea. 30 Tablet 1 10/11/2023 Active Breast PumpIndications:[place] st feeding status of mother Use as directed. 1 Each 10/11/2023 Active Ferrous Sulfate 325 (65 Fe) MG Oral Tablet (Feosol)Indications: Antepartum anemia complicating Take 1 Tablet by mouth in the morning and 1 Tablet before bedtime. 60 Tablet 12 10/11/2023 Active Additional Information Patient taking differently:325 mg Oral BID (.AM/PM),Indications: Taking Vitron C once per day, Reported on 10/27/2023 ChromatikTouch Verio Flex System w/Device KitIndications:Gesta tional diabetes mellitus (GDM) in second trimester, gestational diabetes method of control unspecified Use to test blood sugars 4 times daily (fasting, 1 hour after breakfast, lunch, and dinner) 1 Kit 10/13/2023 Active ChromatikTouch Verio In Vitro Strip (Glucose Blood)Indications:Ge stational diabetes mellitus (GDM) in second trimester, gestational diabetes method of control unspecified Use to test blood sugars 4 times daily (fasting, 1 hour after breakfast, lunch, and dinner) 125 Strip 6 10/13/2023 Active ChromatikTouch Delica Lancets 30GIndications:Gesta tional diabetes mellitus (GDM) in second trimester, gestational diabetes method of control unspecified Use to test blood sugars 4 times daily (fasting, 1 hour after breakfast, lunch, and dinner) 200 Each 6 10/13/2023 Active documented as of this encounter (statuses as of 10/27/2023) Active Problems Problem Noted Date Diagnosed Date [...] four times per day and report to [facility] for ongoing management. Lab Results Component Value Date/Time 100-G GESTATIONAL GLUCOSE, 1 HOUR - [facility] 225 (H) 10/11/2023 09:35 AM 100-G GESTATIONAL GLUCOSE, 2 HOUR - [facility] 114 10/11/2023 10:35 AM 100-G GESTATIONAL GLUCOSE, 3 HOUR - [facility] 81 10/11/2023 11:29 AM 100-G GESTATIONAL GLUCOSE, FASTING - [facility] 101 (H) 10/11/2023 08:25 AM 10/27/23: MFM ADAPT consult complete. Enrolled in [facility]. Instructions provided to report blood sugars each week for MFM review Last Assessment & Plan: CONSIDERATIONS: Reviewed [...] maintain these target values. Report levels to MFM (Maternal- Medicine) via [facility]. Recommend nutrition consult with RDN (Registered Dietitian Airplane Pilot Photogrammetry). Lifestyle changes are also indicated including optimizing [...] and folate levels and referral to a global security architect. If hemoglobin levels are below 8 g/dl, we recommend Maternal Medicine ultrasound for growth every 4 weeks after 24 weeks. Consider a blood transfusion if hemoglobin levels fall below 6 g/dL. ([employer] Practice Bulletin Number 95, October,). Consider Venofer transfusions if patient labs supportive of iron deficiency anemia with dosing of 300 mg IV weekly x 3 weeks GBS (group B streptococcus) UTI complicating pre gnancy 05/23/2023 Supervision of high-risk , [facility] 05/18/2023 Obesity in , antepartum 05/18/2023 [...] be 33 years-old at time of delivery (SCOOETR 01/06/24) She had low-risk genetic screening in [...] insurance coverage [place] [address]). Patient aware not all insurances cover this [...] as of this encounter (statuses as of 10/27/2023) Resolved Problems Problem Noted Date Diagnosed Date Resolved Date GBS (group B Streptococcus c arrier), +RV culture, currently 03/26/2021 05/17/2023 , normal first 09/10/202005/05 Binge eating disorder 06/02/20182023 Overweight (BMI 25.0-29.9) 07/03/2011 1 05/21/2017 Overview: BMI= 28.72 07/03/11 documented as of this encounter (statuses as of 10/27/2023) Immunizations Name Administration Dates Next Due DTaP [...] money to get more. Never true 05/11/2023 Victor Depression Scale Answer Date Recorded Victor Depression Scale Total 4 05/18/2023 The thought [...] No 05/11/2023 Does the household have a [facility] source of income? (Household - for [...] as of this encounter Progress Notes * Nae Lewis CRNP - 10/27/2023 11:14 AM EDT MATERNAL MEDICINE CONSULT Jane Tejada 10/27/23 REFERRING PROVIDER: CHARISSE Drew Patient location: HOME. I was in a hospital or clinic location. After connecting through televideo,patient was verified with two unique identifiers. Patient (or authorized legal business services representative) was then informed that this was a Telemedicine visit and being conducted confidentially over secure lines. Methods to assure confidentiality were taken. Patient acknowledged consent and understanding of pr ivacy and security of the Telemedicine visit. The patient agreed to participate. Jane Tejada is a 33 year old with intrauterine at 29w6d (Estimated Date of Delivery: 01/06/24 by exact LMP) who presents today for an MFM consult due to recent diagnosis of gestational diabetes mellitus (GDM). HPI/CURRENT : pre- BMI=class 2 obesity (96.2 kg (212 lb); 5' 2"); FOB #1; complicated by above. Genetic testing: cffDNA ([facility]) low-risk. MSAFP negative for open neural tube defects. OB Daija Zhong Problems (from 05/11/23 to present) Problem Noted Resolved GDM (gestational diabetes mellitus) Overview Addendum 10/27/2023 11:12 AM by Nae Lewis CRNP Diagnosed at 27 weeks by abnormal 3 [...] four times per day and report to [facility] for ongoing management. Lab Results [...] blood sugars each week for MFM review Antepartum anemia complicating Overview Signed 10/11/2023 3:50 PM by Rosalba Bustamante CRNP Hgb 11.2 at 27 wks, rx'd iron Supervision of high-risk , third trimester Obesity in , antepartum Overview Addendum 10/27/2023 11:14 AM by Nae Lewis CRNP Pre-gravid BMI 38.77 (#212, 5'2") AMA (advanced maternal age) multigravida 35+ Overview Signed 10/27/2023 11:07 AM by Nae Lewis CRNP Ms. Tejada will be 33 years-old at time of delivery (SCOOTER 01/06/24) She had low-risk genetic screening in this . Anxiety during Overview Signed 10/27/2023 11:10 AM by Nae Lewis CRNP Denies current anxiety or depression symptoms in . Taking Zoloft 25 mg daily. Class 2 obesity History of PCOS Overview Addendum 10/27/2023 11:13 AM by Nae Lewis CRNP History of PCOS; no treatment. I have reviewed this patient's previous OB ultrasound reports, pertinent labwork and testing provided by her referring OB provider. Current Outpatient Medications Medication Sig Dispense Refill Breast Pump Use as directed. 1 Each 0 Ferrous Sulfate 325 (65 Fe) MG Oral Tablet (Feosol) Take 1 Tablet by mouth in the morning and 1 Tablet before bedtime. (Patient taking differently: Take 1 Tablet by mouth in the morning and 1 Tablet before bedtime.) 60 Tablet 12 Ondansetron HCl 4 MG Oral Tablet Take 1 Tablet by mouth in the morning and 1 Tablet at noon and 1 Tablet before bedtime. 30 Tablet 2 [employer] Del[employer] Lancets 30G Use to test blood sugars 4 times daily (fasting, 1 hour after breakfast, lunch, and dinner) 200 Each 6 Eduquiaio Flex System w/Device Kit Use to test blood sugars 4 times daily (fasting, 1 hour after breakfast, lunch, and dinner) 1 Kit 0 [employer] LocalMedio In Vitro Strip (Glucose Blood) Use to test blood sugars 4 times daily (fasting, 1 hour after breakfast, lunch, and dinner) 125 Strip 6 Pantoprazole Sodium 40 MG Oral Tablet Delayed Release (Protonix) TAKE 1 TABLET DAILY 90 Tablet 3 19 Oral Tablet Take 1 Tablet by mouth in the morning. Promethazine HCl 25 MG Oral Tablet (Phenergan) Take 1 Tablet by mouth every 6 hours as needed for Nausea. 30 Tablet 1 Sertraline HCl 25 MG Oral Tablet (Zoloft) TAKE 1 TABLET DAILY 90 Tablet 3 No current facility-administered medications for this visit. Review of patient's allergies indicates: Allergen Reactions Gluten Meal OB History Para Term AB Living 3 1 1 0 1 1 SAB IAB Ectopic Multiple Live Births 1 0 0 0 1 # Outcome Date GA Lbr [place]/2nd Weight Sex Type Anes PTL Lv 3 Current 2 SAB 12/2022 4w0d Biochemical Comments: FOB #1 1 Term 04/21/21 40w6d 3.657 kg (8 lb 1 oz) M Induction of N BRISA Comments: FOB #1: Denies or delivery complications. Obstetric Comments 2023: FOB #1 Abebe Tejada 35 YO. Healthy. No children from outside of this relationship. Past Medical History: Diagnosis Date Anxiety Binge eating disorder 06/02/2018 Celiac disease GDM (gestational diabetes mellitus) 10/11/2023 GERD (gastroesophageal reflux disease) Gluten intolerance 2016 PCOS (polycystic ovarian syndrome) dx in college at outside facility. no treatment ever prescribed Past Surgical History: Procedure Laterality Date DENTAL SURGERY PROCEDURE NEC Family History Problem Relation Name Age of Onset Thyroid Disorder Mother Hypertension Mother Celiac disease Mother Diabetes Mother type 2 No Past Hx Father Celiac disease Sister Celiac disease Sister No Known Problems Sister No Known Problems Brother Diabetes Grandmother (Maternal) type 2 No Known Problems Son Social History Tobacco Use Smoking status: Never Smokeless tobacco: Never Vaping Use Vaping status: Never Used Substance Use Topics Alcohol use: Not Currently Alcohol/week: 7.0 standard drinks of alcohol Types: 7 5 oz of wine per week Comment: weekly Drug use: No REVIEW OF SYSTEMS: headaches: no nausea/vomiting: reports frequent nausea/gagging reports movement: yes abdominal pain/tenderness/cramping/contractions: no vaginal bleeding: no vaginal leaking of fluid: no all other systems negative PHYSICAL EXAM: LMP 04/01/2023 (Exact Date) General: Well appearing Psych: Alert to time, place, and person and Pleasant DISCUSSION/RECOMMENDATIONS: Problem List Items Addressed This Visit OB Daija Zhong Class 2 obesity History of PCOS CONSIDERATIONS: There is an increased incidence of spontaneous and gestational diabetes mellitus in women with PCOS. However, there is no increased incidence of poor outcomes. Supervision of high-risk , third trimester Obesity in , antepartum CONSIDERATIONS: Discussed obstetrical risks associated with class [...] weeks. AMA (advanced maternal age) multigravida 35+ CONSIDERATIONS: We reviewed the most pertinent aspects [...] targets the following conditions: Trisomy 21 (Down syndrome),trisomy 18, trisomy 13, and sex chromosome abnormalities [...] insurance coverage and [place] ([place] [address]). Patient aware not all insurances cover this [...] increased risk of congenital/structural anomalies. RECOMMENDATIONS: Recommend M anatomy ultrasound at 19-20 weeks gestation. Anxiety during ANXIETY AND DEPRESSION CONSIDERATIONS: Untreated maternal anxiety and depression may be associated with an increased risk of multiple poorobstetrical outcomes including miscarriages, low weight, and delivery. Women with a history of anxiety or depression are at risk for recurrence both during and/or the period. Studies of first-trimester SSRI exposure do not demonstrate consistent data to support an increasedrisk for structural malformations. Anti-anxiety or depression medications have been associated with transient effects (withdrawal syndrome). RECOMMENDATIONS: Mental illness can and should be treated during when the benefits of treatment outweigh potential risks. Referral to behavioral health services as clinically indicated. GDM (gestational diabetes mellitus) - Primary CONSIDERATIONS: Reviewed etiology and risks associated with gestational diabetes mellitus (GDM), including risks topregnancy, fetus, and maternal progression to Type 2 [...] maintain these target values. Report levels to MFM (Maternal- Medicine) via [facility]. Recommend nutrition consult with RDN (Registered Dietitian Airplane Pilot Photogrammetry). Lifestyle changes are also indicated including optimizing gestational weight gain and physical activity of 30 minutes per day, if not otherwise contraindicated in . Insulin is preferred if medications are indicated to optimize euglycemia. Metformin (preferred overglyburide) may also be used in some circumstances. [...] with 75-gram glucose load 6-8 weeks . Relevant Orders REMOTE PATIENT MONITORING REFERRAL Antepartum anemia complicating CONSIDERATIONS: Severe maternal anemia (hemoglobin levels below [...] blood conservation program after oral therapy has failed)as indicated to keep hemoglobin level above 11 g/dl during . Oral iron should be taken with orange juice. If anemia studies do not reflect iron deficiency anemia we recommend checking TSH, B12 and folate levels and referral to a global security architect. If hemoglobin levels are below 8 g/dl, we recommend Maternal Medicine ultrasound for growth every 4 weeks after 24 weeks. Consider a blood transfusion if hemoglobin levels fall below 6 g/dL. ([employer] Practice Bulletin Number 95, October,). Consider Venofer transfusions if patient labs supportive of iron deficiency anemia with dosing of 300 mg IV weekly x 3 weeks Follow up ultrasound with Maternal Medicine is scheduled on 11/[address] Bryant for anatomy scan/growth scan secondary to gestational diabetes mellitus. Patient is aware of upcoming MFM appointment. CHARISSE Cohen 10/27/2023 11:14 AM documented in this encounter Miscellaneous Notes * Pt Handout (on AVS) - Nae Lewis CRNP - 10/27/2023 11:19 AM EDT Images from the original note were not included. [id number]: Checking Your Blood Sugar - Video This video shows the steps to check your blood sugar. To view the video go to this web address: https://bit.ly/[email or web address] Or, scan this QR code with your smart phone Last Reviewed Date: 10/02/202019998167-0112 [employer]. All rights reserved. This information is not intended as a substitute for professional medical care. Always follow your healthcare professional's instructions. * Pt Handout (on AVS) - Nae Lewis CRNP - 10/27/2023 11:19 AM EDT Images from the original note were not included. Managing Gestational Diabetes - Video Being diagnosed with gestational diabetes can be stressful. But with proper care and management, you can stay healthy and deliver a healthy baby. In many cases, gestational diabetes goes away on its own after the mother gives . To view the video go to this web address: https://bit.ly/3PDFovA Or, scan this QR code with your smart phone SyncSum * Pt Handout (on AVS) - Nae Lewis CRNP - 10/27/2023 11:19 AM EDT Images from the original note were not included. [id number] If You Need Extra Insulin During During , your body may not be able to make enough insulin to control your blood sugar. If this happens, you may need extra insulin. This will help control your blood sugar. In some cases, anoral antidiabetic medicine may be used. An example of this is glyburide. But insulin is used most often. Insulin is a natural substance. It is not addictive. It does not harm your baby. It does not cross the placenta. That means it does not affect your baby the way taking a pill would. If you did not have diabetes before , you will likely stop taking insulin after your baby is born. Learning to use insulin Your healthcare provider will prescribe your insulin. They will teach you how to give yourself a shot. With practice, you?ll get comfortable doing it. You will need to inject it 1 or more times a day. Insulin is injected into fatty tissue. The best site for a shot of insulin is in your belly area. But you can also do the shot in your upper arm or thigh. Talk with your healthcare provider about where to give the shot. Here are some steps to follow: Choose an injection site. Clean it with alcohol if the skin is dirty. Pinch a fold of skin. Insert the needle at a steep angle. The best angle will depend on your body type, the length of the needle, and where you put the shot. Your healthcare provider will help youfind the best angle. Keeping the skin pinched, push the plunger down. This injects the insulin. Release the pinched skin. Remove the needle from your skin. If you see blood or insulin leaking from your skin, press firmly on the site for 5 to 8 seconds. Don?t rub your skin in the area. [place] and syringes should be used only 1 time. After using, throw them away in a puncture-proof container. This is known as a sharps container. Don?t throw needles in your household trash. Talk to your healthcare provider if you have any questions or concerns about taking insulin. The best site for injecting insulin is your abdomen. But you can also inject into an upper arm or thigh. Talk with your health care provider about where to give yourself a shot. Finding the right dose for you Your healthcare provider will work with you to find the right dose of insulin for you. It may take time. This is because you need to balance your insulin with your food and exercise. And your body needs more insulin as your baby grows. You must check your blood sugar several times a day. This is to be sure your insulin is working. Ifyour blood sugar is too high or too low, your healthcare provider will adjust your dose. Low blood sugar Taking insulin puts you at risk of low blood sugar. Symptoms of low blood sugar include: Shakiness Dizziness Weakness Confusion If you feel any of these symptoms, check your blood sugar right away. Always treat low blood sugar quickly. To do this, eat 15 grams of fast-acting sugar, such as: 3 glucose tablets 5 to 6 pieces of hard candy 1 to 2 tablespoons of honey or sugar cup fruit juice or regular, nondiet soda 1 cup fat-free milk Then check your blood sugar again in 15 minutes. If your blood sugar is still low, eat another 15 grams of sugar. If your blood sugar does not return to the target range in 30 minutes, call your healthcare provider. Last Reviewed Date: 03/04/202219993286-7654 [employer]DoneThis. All rights reserved. This information is not intended as a substitute for professional medical care. Always follow your healthcare professional's instructions. * Pt Handout (on AVS) - Nae Lewis CRNP - 10/27/2023 11:19 AM EDT Images from the original note were not included. [id number] Low Blood Sugar (Hypoglycemia) Low blood sugar (hypoglycemia) means you don?t have enough sugar (glucose) in your bloodstream to help your body work. This may be a level of sugar lower than 70 mg/dL. But talk with your healthcare provider about your own target range. Ask what level is too low for you. Diabetes doesn?t cause low blood sugar. But some treatments for diabetes may raise the risk for it.These include oral medicines or insulin. Skipping or delaying meals can also increase your risk forhypoglycemia. In severe cases, low blood sugar may make you pass out or have a seizure. This is a medical emergency. So always treat low blood sugar right away as noted below. This is to prevent moreserious problems. Safety note Always carry a source of fast-acting sugar and a snack in case you have low blood sugar. Examples include: 4 glucose tablets 1 tube of glucose gel 1 packet of sugar or honey 2 tablespoons of raisins Symptoms of low blood sugar If you have low blood sugar, you may have 1 or more of these symptoms: Shakiness Dizziness Cold, clammy skin or sweating Hunger Headache Nervous feeling A hard, fast heartbeat Weakness Confusion or irritability Trouble seeing or talking Having nightmares or waking up confused or sweating Numbness or tingling in the lips or tongue What to do If you think you have low blood sugar: 1. Check your sugar. First, check your blood sugar. If it's too low (out of your target range), eator drink 15 to 20 grams of fast-acting sugar. This may be 3 to 4 glucose tablets, or 4 ounces (halfa cup) of fruit juice or regular (not diet) soda, or 1 tablespoon of honey. Don?t take more than this. If you do, your blood sugar may go too high. 2. Don?t have protein. Don't eat or drink things high in protein to treat low blood sugar. This includes milk, nuts, and meat. Protein may increase your insulin response. It may lower your blood sugar even more. 3. Check again. Wait 15 minutes. Then recheck your blood sugar if you can. If your blood sugar is still too low, repeat the steps above until your blood sugar is back to normal. 4. Eat a snack. When your blood sugar is back at target range, eat a snack or meal. 5. Get help if needed. If you still don?t feel well and your blood sugar is still low, have someonedrive you to the emergency room. Preventing low blood sugar Things you can do include the below: If your diabetes needs a strict treatment plan, eat meals and snacks at the same times each day.Don?t skip meals. If you have trouble paying for food, talk with your healthcare team for help. If your treatment plan lets you change when and what you eat, learn how to change the time and dose of your rapid-acting insulin to match. Ask your healthcare provider if it's safe to drink alcohol. But never drink on an empty stomach.Alcohol may keep you from feeling the first symptoms of low blood sugar. Take your medicine at the prescribed times. Always carry a source of fast-acting sugar and a snack when you?re away from home. If you have had repeated low blood sugar episodes: You may not notice the symptoms of low blood sugar until it gets to a dangerous level. Work withyour provider for the best ways to safely manage your blood sugar. Ask your healthcare provider if you can take less or different medicine. Many newer types of diabetes medicines have less risk of low blood sugar. Talk with your provider about a continuous glucose monitor. This is a device that tracks your blood sugar. Ask your provider if you should be prescribed a medicine called glucagon. Glucagon is a hormone that quickly raises blood sugar. It can reverse serious symptoms. It is available as an injection oras a powder that's put into the nose. Ask your healthcare provider which type of glucagon is best for you and how to use it. Other safety tips Make sure to: Carry a medical ID card or wear a medical alert bracelet or necklace. It should say that you have diabetes. It should say what to do if you pass out or have a seizure. Teach your family, friends, and coworkers the signs of low blood sugar. Tell them what to do if your blood sugar falls very low and you can?t treat yourself. Keep a glucagon emergency kit handy. Show your family, friends, and coworkers how and when to use it. Check it often. Replace the glucagon before it expires. Talk with your healthcare team about other things you can do to prevent low blood sugar. These include using new ways of continuous glucose tracking. Important If you have unexplained low blood sugar or have it several times, call your healthcare provider. Last Reviewed Date: 12/03/202219995523-2278 [employer]. All rights reserved. This information is not intended as a substitute for professional medical care. Always follow your healthcare professional's instructions. * Pt Handout (on AVS) - Nae Lewis CRNP - 10/27/2023 11:18 AM EDT Images from the original note were not included. [id number] Gestational Diabetes: After Your blood sugar will most likely return to normal after delivery. But gestational diabetes is a warning sign that you are at risk of getting diabetes later in life. You?re also more likely to have gestational diabetes with your next . But you can take steps to reduce these risks. Taking care of yourself Even if your blood sugar goes back to normal, you still need to take care of yourself. This will help prevent diabetes later in life. You'll need to: Keep your weight down. Eating food that is low in fat and sugar can help you control your weight. If you?re overweight, your risk of getting diabetes in 10 to 15 years more than doubles. Keeping your weight down also reduces your risk of gestational diabetes in your next . Get regular exercise. Exercise helps lower your blood sugar. It can also help you control your weight. Try to work up to at least 150 to 300 minutes of moderate exercise every week. This is at least 30 minutes each day. Have your blood sugar checked. Make an appointment to have your blood sugar checked 6 to 8 weeksafter delivery. If your blood sugar is still high, you may have type 2 diabetes. Your healthcare provider will tell you more about how to manage diabetes long-term. Have regular diabetes screenings. Have blood tests every year, or as often as your healthcare provider advises. Breastmilk is the best food for your baby. Giving only breastmilk is advised for at least your baby's first 6 months. may also help lower your blood sugar. Your healthcare provider can show you how to breastfeed. Be sure to eat healthy foods and drink extra water while you?re . You may find exercise easier right after . This is when your breasts may feel machine operator. Planning a future Your blood sugar needs to be back to normal before you get again. Have your blood sugar checked before you plan your next . And remember that it?s possible to get again soon after you give . Talk with your healthcare provider about the best method of control for you and your partner. Last Reviewed Date: 05/05/202119990397-0801 [employer]. All rights reserved. This information is not intended as a substitute for professional medical care. Always follow your healthcare professional's instructions. * Pt Handout (on AVS) - Nae Lewis CRNP - 10/27/2023 11:18 AM EDT Images from the original note were not included. [id number] Gestational Diabetes: Exercise Exercise can help you keep your blood sugar in a normal range. That?s because your body uses more blood sugar when you exercise. Diabetes in can often be managed with careful nutrition and exercise alone. Then you may not need medicine to control your blood sugar. Exercise regularly Your healthcare provider may want you to exercise each day. The best time depends on when your blood sugar is highest. Exercising may also help ease some common symptoms of . These include bloating, constipation, and backaches. Ask about exercise at your first care visit. Your provider will work with you to make an exercise plan that fits your needs. Here are some tips: Aim to exercise for 30 to 60 minutes a day. Do this at moderate intensity. This means you're moving enough to raise your heart rate and start sweating. But you can still talk normally. Try breaking up daily exercise into 2 or 3 sessions. For example, take a 15- minute walk after each meal. Exercise with a friend or your partner. This may help you stick to your exercise plan. Go at a comfortable pace. Don?t tire yourself out. Exercise safely Ask your provider about exercise safety for you and your baby. Walking, swimming, and low-impact orwater aerobics are often the safest things to do. Other safety tips include: Don't do activities where you jump, turn, twist, stop or start quickly. Don't lift heavy weights. Don't exercise on your back after the first trimester. This can put too much pressure on an important vein. It can limit blood flow to the baby. If you do yoga or Pilates, find a class designed for . Use a sports bra to support your breasts. You may also want to use a belly support belt later inpregnancy. Don't get overheated. Don't do hot yoga or hot Pilates. Don't raise your heart rate to a level that makes it hard to talk. Drink plenty of water. If you use insulin, carry a carbohydrate snack with you. If you walk or do low-impact aerobics, wear sturdy shoes. If you haven?t eaten in 2 or more hours, have a light snack before exercising. Don't do contact sports that put you at risk of being hit in the belly. These include boxing, ice hockey, soccer, and basketball. Don't go skydiving or scuba diving. Don't do things that may cause a serious fall. These include horseback riding, gymnastics, and off-road cycling. Use a stationary bike. It's a safer choice than a standard bike. It will stop you from getting off balance with your growing belly. When it's not safe to exercise It's not advised to exercise when if you have any of these health conditions: Some types of heart and lung diseases with twins or more, and at risk for labor labor of your water has broken (ruptured membranes) Placenta previa later than 26 weeks of Preeclampsia or high blood pressure due to Severe anemia Cervical insufficiency or cerclage When to call your healthcare provider Call your provider right away or go to the emergency room (ER) if you have any of these: Belly pain Shortness of breath before starting exercise Vaginal bleeding Dizziness or feeling faint Chest pain Headache Decreased movement contractions Muscle weakness Calf pain or swelling Fluid leaking from the vagina Last Reviewed Date: 05/05/202119999494-4650 [employer]. All rights reserved. This information is not intended as a substitute for professional medical care. Always follow your healthcare professional's instructions. * Pt Handout (on AVS) - Nae Lewis CRNP - 10/27/2023 11:18 AM EDT [id number] Diet: Diabetes Food is an important tool that you can use to control diabetes and stay healthy. Eating well-balanced meals in the correct amounts will help you control your blood glucose levels and prevent low blood sugar reactions. It will also help you reduce the health risks of diabetes. There is no one specific diet that is right for everyone with diabetes and you can eat a variety of foods. But there are general guidelines to follow. A registered dietitian (RD) will create a tailored diet approach that?sjust right for you. They will also help you plan healthy meals and snacks. If you have any questions, call your dietitian for advice. Guidelines for success Talk with your healthcare provider before starting a diabetes diet or weight loss program. If you haven't talked with a dietitian yet, ask your provider for a referral. The following guidelines can help you succeed: Select foods from the 6 food groups below. Your dietitian will help you find food choices withineach group. He or she will also show you serving sizes and how many servings you can have at each meal. o Grains, beans, and starchy vegetables o Vegetables o Fruit o Milk or yogurt o Meat, poultry, fish, or tofu o Healthy fats Check your blood sugar levels as directed by your provider. Take any medicine as prescribed by your provider. Learn to read food labels and pick the right portion sizes. Limit carbohydrates at each meal to help manage your diabetes. The carbohydrates you eat become glucose in the blood. This does not mean you can't eat carbohydrates. Talk with your healthcare provider about how many grams of carbohydrates are recommended for you at each meal. Eat 3 meals a day, at consistent times. Don't skip meals. If you are hungry between meals, eat a small, low-carbohydrate snack. Talk with your healthcare provider if you drink alcohol. Alcohol can have unpredictable effects on blood glucose. It's also high in empty calories and can raise a type of blood fat called triglycerides. Drink water or calorie-free diet drinks instead. Eat less fat to help lower your risk of heart disease. Use nonfat or low-fat dairy products and lean meats. Avoid fried foods. Use cooking oils that are unsaturated, such as olive, canola, or peanut oil. Don't eat foods with added salt. Salt can contribute to high blood pressure, which can cause heart disease. People with diabetes already have a risk for high blood pressure and heart disease. Stay at a healthy weight. If you need to lose weight, cut down on your portion sizes. But never skip meals. Exercise is an important part of any weight management program. Talk with your provider about an exercise program that?s right for you. For more information about the best diet plan for you, talk with an RD. To find an RD in your area, contact: o Academy of Nutrition and Dietetics at www.eatright.org o [place] [employer] Association at www.diabetes.org or [phone] o Association of Diabetes Care and Education Specialists at www.diabeteseducator.org/ Last Reviewed Date: 04/04/202119997542-8808 [employer]. All rights reserved. This information is not intended as a substitute for professional medical care. Always follow your healthcare professional's instructions. * Pt Handout (on AVS) - Nae LewisCHARISSE - 10/27/2023 11:18 AM EDT [id number] Alimentacin: la diabetes La comida es jia herramienta importante que puede usar para controlar la diabetes y mantenerse saludable. Mantener jia alimentacin xochitl equilibrada en las cantidades correctas lo ayudar a controlar los niveles de glucosa en la yessenia y prevenir las reacciones al bajo nivel de azcar en la yessenia. Tambin ayudar a reducir los riesgos de la diabetes para la ellie. No hay jia alimentacin especfica que sea ideal para todos los diabticos y usted puede comer distintos alimentos. Jeff hay lineamientos generales que pueden seguirse. Un nutricionista matriculado crear un enfoque alimentario personalizado que sea adecuado para usted. Tambin lo ayudar a planear comidas y refrigerios saludables. Si tiene alguna pregunta, llame a sanchez nutricionista para que lo asesore. Pautas para triunfar Hable con sanchez proveedor de atencin mdica antes de iniciar jia dieta para la diabetes o un programa para bajar de peso. Si todava no castro hablado con un nutricionista, pdale jia derivacin a sanchez proveedor. Las siguientes pautas pueden ayudarlo a triunfar: Seleccione alimentos de los 6 grupos que se encuentran a continuacin. Sanchez nutricionista lo ayudar a buscar opciones dentro de cada roger. Marce tambin le mostrar los tamaos de las porciones que puede comer en cada comida. o Granos, frijoles y verduras con almidn o Verduras o Frutas o Leche o yogur o Carne de res, ave, pescado o tofu o Grasas saludables Controle arnold niveles de azcar en la yessenia segn lo indicado por sanchez proveedor. Sonoita los medicamentos tiffanie lida se lo haya recetado sanchez proveedor. Aprenda a leer las etiquetas de los alimentos y elija los tamaos de las porciones correctos. Limite el consumo de carbohidratos en cada comida para ayudar a controlar la diabetes. Los carbohidratos que come se convierten en glucosa en la yessenia. Wasta no significa que no pueda ingerir carbohidratos. Hable con sanchez proveedor de atencin mdica acerca de cuntos gramos de carbohidratos lerecomienda en cada comida. Shiva 3 comidas en horarios constantes. No se saltee ninguna comida. Si tiene hambre entre las comidas, puede hacer un refrigerio pequeo con poco contenido de carbohidratos. Hable con sanchez proveedor de atencin mdica si cornelius alcohol. El alcohol puede tener un efecto impredecible sobre la glucosa en la yessenia. Tambin tiene muchas caloras vacas y puede aumentar el nivel de un tipo de grasa en la yessenia llamado triglicridos. En cambio, kerri agua o bebidas dietticas sin caloras. Coma menos grasa para ayudar a reducir el riesgo de enfermedades del corazn. Consuma productoslcteos descremados o parcialmente descremados y carne de res magra. Evite los alimentos fritos. Use aceite para cocinar que no est saturado; por ejemplo, de duran, canola o man. No coma alimentos con mayte agregada. La mayte puede contribuir a la presin arterial gurdeep, lo que puede causar jia enfermedad del corazn. Las personas con diabetes ya corren riesgo de presin arterial gurdeep y enfermedad del corazn. Mantenga un peso saludable. Si necesita adelgazar, reduzca el tamao de las porciones. Jeff no se salte comidas. El ejercicio es jia parte importante del programa de control de peso. Hable con suproveedor sobre un programa de ejercicios que sea adecuado para usted. Para obtener informacin sobre el mejor plan alimentario para usted, consulte con un nutricionista matriculado. Para encontrar jasmeet en sanchez yarelis, comunquese con: o Academia de Nutricin y Diettica (Academy of Nutrition and Dietetics), en www.eatright.org o Asociacin [place]ense de Diabetes ([place] Diabetes Association), en www.diabetes.org o llamando al [phone] o Asociacin de Especialistas en Educacin y Atencin de la Diabetes (Association of Diabetes Care & Education Specialists), en www.diabeteseducator.org/ Last Reviewed Date: 04/04/202119994156-8505 [employer]. Todos los derechos reservados. Esta informacin no pretende sustituir la atencin mdica profesional. Slo sanchez mdico puede diagnosticar y tratar un problema de ellie. * Pt Handout (on AVS) - Nae Lewis CRNP - 10/27/2023 11:18 AM EDT Images from the original note were not included. Diabetes in - Video Two types of diabetes can occur during ?pre-existing diabetes, which will continue after , and gestational diabetes, which will go away after the baby is born. Diabetes is a condition in which your body doesn?t make enough insulin or you can?t use it correctly. This video offers details on how these two types diabetes can affect a . To view the video go to this web address: https://bit.ly/3xeVdla Or, scan this QR code with your smart phone Last Reviewed Date: 07/04/201919999403-5882 [employer]. All rights reserved. This information is not intended as a substitute for professional medical care. Always follow your healthcare professional's instructions. * Assessment & Plan Note - Nae Lewis CRNP - 10/27/2023 11:14 AM EDT Associated Problem(s): Obesity in , antepartum CONSIDERATIONS: Discussed obstetrical risks associated with class [...] recommend weekly surveillance starting at 37 weeks. * Assessment & Plan Note - Nae Lewis CRNP - 10/27/2023 11:13 AM EDT Associated Problem(s): History of PCOS CONSIDERATIONS: There is an increased incidence of spontaneous and gestational diabetes mellitus in women with PCOS. However, there is no increased incidence of poor outcomes. * Assessment & Plan Note - Nae Lewis CRNP - 10/27/2023 11:13 AM EDT Associated Problem(s): GDM (gestational diabetes mellitus) CONSIDERATIONS: Reviewed etiology and risks associated with gestational diabetes mellitus (GDM), including risks topregnancy, fetus, and maternal progression to Type 2 [...] maintain these target values. Report levels to MFM (Maternal- Medicine) via [facility]. Recommend nutrition consult with RDN (Registered Dietitian Airplane Pilot Photogrammetry). Lifestyle changes are also indicated including optimizing gestational weight gain and physical activity of 30 minutes per day, if not otherwise contraindicated in . Insulin is preferred if medications are indicated to optimize euglycemia. Metformin (preferred overglyburide) may also be used in some circumstances. [...] with 75-gram glucose load 6-8 weeks . * Assessment & Plan Note - Nae Lewis CRNP - 10/27/2023 11:10 AM EDT Associated Problem(s): Anxiety during ANXIETY AND DEPRESSION CONSIDERATIONS: Untreated maternal anxiety and depression may be associated with an increased risk of multiple poorobstetrical outcomes including miscarriages, low weight, and delivery. Women with a history of anxiety or depression are at risk for recurrence both during and/or the period. Studies of first-trimester SSRI exposure do not demonstrate consistent data to support an increasedrisk for structural malformations. Anti-anxiety or depression medications have been associated with transient effects (withdrawal syndrome). RECOMMENDATIONS: Mental illness can and should be treated during when the benefits of treatment outweigh potential risks. Referral to behavioral health services as clinically indicated. * Assessment & Plan Note - Nae Lewis CRNP - 10/27/2023 11:09 AM EDT Associated Problem(s): Antepartum anemia complicating CONSIDERATIONS: Severe maternal anemia (hemoglobin levels below [...] blood conservation program after oral therapy has failed)as indicated to keep hemoglobin level above 11 g/dl during . Oral iron should be taken with orange juice. If anemia studies do not reflect iron deficiency anemia we recommend checking TSH, B12 and folate levels and referral to a global security architect. If hemoglobin levels are below 8 g/dl, we recommend Maternal Medicine ultrasound for growth every 4 weeks after 24 weeks. Consider a blood transfusion if hemoglobin levels fall below 6 g/dL. ([employer] Practice Bulletin Number 95, October,). Consider Venofer transfusions if patient labs supportive of iron deficiency anemia with dosing of 300 mg IV weekly x 3 weeks * Assessment & Plan Note - Nae Lewis CRNP - 10/27/2023 11:09 AM EDT Associated Problem(s): AMA (advanced maternal age) multigravida 35+ CONSIDERATIONS: We reviewed the most pertinent aspects [...] targets the following conditions: Trisomy 21 (Down syndrome),trisomy 18, trisomy 13, and sex chromosome abnormalities [...] [place] [address]). Patient aware not all insurances cover this [...] MFM anatomy ultrasound at 19-20 weeks gestation. documented in this encounter Plan of Treatment Upcoming Encounters Date Type Department Care Team (Late st Contact Info) Description 11/02/2023 10:45 AM EDT Office Visit Piercing Machine Operator Obstetrics Maternal Medicine, [address] [address] Didi Bryant [address] [place] [facility] [place] [address] 11/02/2023 10:45 AM EDT [facility] [address] [facility] [place] [address] 11/08/2023 8:45 AM EDT Office Visit Gynecology/Obstetrics [facility] Garzas [address] [place] [address] Rosalba Bustamante CRNP [address] [place] [address] 11/22/2023 3:45 PM EDT Office Visit Gynecology/Obstetrics [facility] [address] [place] [address] Katie Nunn PA-C [address] [place] [id number] 12/06/2023 3:45 PM EDT Office Visit Gynecology/Obstetrics Benjamin[facility]an[facility] Garzas [address] [place] [address] Katie Nunn PA-C [address] [place] [id number] 12/13/2023 8:30 AM EDT Office Visit Gynecology/Obstetrics Benjamin[facility]an[facility] Garzas [address] [place] [address] Rosalba Bustamante CRNP [address] [place] [address] 12/22/2023 3:45 PM EDT Office Visit Gynecology/Obstetrics [facility] [address] [place] [address] Katie Nunn PA-C [address] [place] [id number] 12/29/2023 3:45 PM EDT Office Visit Gynecology/Obstetrics [facility] [address] [place] [address] Katie Nunn PA-C [address] [place] [id number] 01/04/2024 3:15 PM EDT Office Visit Gynecology/Obstetrics Alexanderanika [facility] [address] [place] [address] Aurora Stewart CRNP [address] [place] [id number] Scheduled Referrals Name Type Priority Associated Diagnoses Orde r Schedule REMOTE PATIENT MONITORING REFERRAL Referral Within 3 days (urgent) Diet controlled gestational diabetes mellitus (GDM) in third trimester Ordered: 10/27/2023 Health Maintenance Due Date Last Done Comments [...] as of this encounter Visit Diagnoses Diagnosis Diet controlled gestational diabetes mellitus (GDM) in third trimester- Primary Multigravida of advanced maternal age in third trimester Antepartum anemia complicating Anemia, antepartum Anxiety during Obesity in , antepartum Obesity complicating , childbirth, or the puerperium, antepartum condition or complication History of PCOS Personal history of other genital system and obstetric disorders Supervision of high-risk , third trimester Class 2 obesity documented in this encounter Additional Health Concerns Active Problems Noted Date Diagnosed Date OB Reminders 10/23/2023 documented as of this encounter Care Teams Community Relations Representative Relationship Specialty Start Date End Date Aruna Yoo DO [address] [place] [address] PCP - General Family Medicine 02/08/11 documented as of this encounter
--- OUTSIDE RECORDS SUMMARY | 2023-12-29 12:11 | External Medical Summary | Summary of Care ---
Author Name Unknown Organization [facility] Address [address] [facility] [place] [address] Phone [phone] Care Team Providers Care Operations Support Professionals Name Role Phone Aruna Yoo DO Primary Care Provider Reason for Visit * Reason Comments Outpatient Testing Encounter Details Date Type Department Care Team (Late st Contact Info) Description 10/11/2023 8:20 AM EDT Laboratory Laboratory, [facility] [phone] [facility] [address] High-risk in second trimester; Obesity in , antepartum Allergies Active Allergy Reactions Criticality Noted Date Comments Gluten Meal 11/18/2016 documented as of this encounter (statuses as of 10/11/2023) Medications Medication Sig Dispensed Refills Start Date End Date Status 19 Oral Tablet Take 1 Tablet by mouth in the morning. Active Pantoprazole Sodium 40 MG Oral Tablet Delayed Release (Protonix)Indications :Gastroesophageal reflux disease TAKE 1 TABLET DAILY 90 Tablet 3 05/27/2023 Active Ondansetron HCl 4 MG Oral Tablet Take 1 Tablet by mouth in the morning and 1 Tablet at noon and 1 Tablet before bedtime. 40 Tablet 2 06/17/2023 Active Sertraline HCl 25 MG Oral Tablet (Zoloft) TAKE 1 TABLET DAILY 90 Tablet 3 07/04/2023 Active Promethazine HCl 25 MG Oral Tablet (Phenergan)Indication s:High-risk in second trimester Take 1 Tablet by mouth every 6 hours as needed for Nausea. 30 Tablet 1 07/15/2023 Active documented as of this encounter (statuses as of 10/11/2023) Active Problems Problem Noted Date Diagnosed Date GBS (group B streptococcus) UTI complicating pre [...] as of this encounter (statuses as of 10/11/2023) Resolved Problems Problem Noted Date Diagnosed Date [...] as of this encounter (statuses as of 10/11/2023) Immunizations Name Administration Dates Next Due DTaP Dipth/Tet/Acell Pertussis (Infanrix), Peds 08/25/1992,09/23/1989,1988,1988,1988 HIB PRP-OMP, 3 dose (Pedvax) 09/23/1989 Hepatitis B, 0-19 yrs 07/12/2000,05/10/2000,03/04 MMR - Measles/Mumps/Rubella Vaccine 08/25/1992,0 09/23/1989 OPV - Polio Virus Vaccine (Oral) 993,09/23/1989,1988,1988 PPD 12/02/2016,10/18/2012 TD, Preservative Free 03/15/2000 TDAP (age 10 and older)(Boostrix) 01/29/2021,09/2012 documented as of this encounter Social History [...] Care Team (Late st Contact Info) Description 10/11/2023 9:30 AM EDT Office Visit Gynecology/Obstetrics [facility] 132 [facility] [place] [address] Katie Nunn PA-C [address] [place] [address] [place] [phone] Pending Results Name Type Priority Associated Diagnoses Date /Time SYPHILIS ANTIBODY SCREEN WITH REFLEX TO RPR Lab Routine High-risk in second trimester 10/11/2023 8:25 AM EDT CBC WITH WBC DIFFERENTIAL AND ANEMIA REFLEX WORKUP Lab Routine High-risk in second trimester 10/11/2023 8:25 AM EDT GESTATIONAL GLUCOSE TOLERANCE, 3 HOUR Lab Routine High-risk in second trimester Obesity in , antepartum 10/11/2023 8:25 AM EDT SYPHILIS ANTIBODY SCREEN Lab Routine High-risk in second trimester 10/11/2023 8:25 AM EDT ANEMIA CBC Lab Routine High-risk in second trimester 10/11/2023 8:25 AM EDT DIFFERENTIAL, AUTOMATED Lab Routine High-risk in second trimester 10/11/2023 8:25 AM EDT ANEMIA REFLEX CHEMISTRY HOLD Lab Routine High-risk in second trimester 10/11/2023 8:25 AM EDT 100-G GESTATIONAL GLUCOSE, FASTING Lab Routine High-risk in second trimester Obesity in , antepartum 10/11/2023 8:25 AM EDT Scheduled Orders Name Type Priority Associated Diagnoses Orde r Schedule 100-G GESTATIONAL GLUCOSE, 1 HOUR Lab Routine High-risk in second trimester Obesity in , antepartum Ordered: 10/11/2023 Health Maintenance Due Date Last Done Comments HPV/Co-Test 02/02/2018 Depression Monitoring 05/25/2020 05/25/2019 Diabetes Screening 06/09/2021 06/09/2018 COVID-19 Vaccine ( season) 2022 Influenza Vaccine (FLU shot) (#1) 2023 Cervical Cancer Screening 09/01/2024 Pap Smear 09/01/2024 09/01/2021, 01/03, 11/19/2015, Additional history exists DTaP,Tdap,and Td Vaccines (8 - Td or Tdap) 01/29/2031 01/29/2021, 09/07/2012, 03/15/2000, Additional history exists Hepatitis B Vaccine Completed [...] this encounter Visit Diagnoses Diagnosis High-risk in second trimester- Primary Obesity in , antepartum Obesity complicating , childbirth, or the puerperium, antepartum condition or complication Multigravida of advanced maternal age in second trimester Anxiety during History of PCOS Personal history of other genital system and obstetric disorders High-risk in second trimester Obesity in , antepartum Obesity complicating , childbirth, or the puerperium, antepartum condition or complication documented in this encounter Care Teams Operations Support Professionals Relationship Specialty Start Date End Date Aruna Yoo DO [address] [place] [address] PCP - General Family Medicine 02/08/11 documented as of this encounter
--- OUTSIDE RECORDS SUMMARY | 2023-12-29 12:11 | External Medical Summary | Summary of Care ---
Author Name Unknown Organization [facility] Address [address] [facility] [address] Phone [phone] Care Team Providers Care Bacon De Rinder Name Role Phone Aruna Yoo DO Primary Care Provider Reason for Visit * Reason Comments Outpatient Testing Encounter Details Date Type Department Care Team (Late st Contact Info) Description 10/11/2023 8:20 AM EDT Laboratory Laboratory, [facility] [phone] [facility] [address] High-risk in second trimester; Obesity in , [...] 07/04/2023 Active Ondansetron HCl 4 MG Oral Tablet Take 1 Tablet by mouth in the morning and 1 Tablet at noon and 1 Tablet before bedtime. 40 Tablet 2 06/17/2023 10/11/2023 Discontinued (Refill) Promethazine HCl 25 MG Oral Tablet (Phenergan)Indica tions:High-risk in second trimester Take 1 Tablet by mouth every 6 hours as needed for Nausea. 30 Tablet 1 07/15/2023 10/11/2023 Discontinued (Refill) documented as of this encounter (statuses as [...] money to get more. Never true 05/11/2023 [place] Depression Scale Answer Date Recorded [place] Depression Scale Total 4 05/18/2023 The thought [...] 10/25/2023 8:45 AM EDT Office Visit Gynecology/Obstetrics [facility] 132 [facility] [place] [address] Missy Álvarez CNM [address] [place] [address] Altaf [place] [phone] Pending Results Name Type Priority Associated Diagnoses [...] 10/11/2023 8:25 AM EDT 100-G GESTATIONAL GLUCOSE, 2 HOUR Lab Routine High-risk in second trimester Obesity in , antepartum 10/11/2023 10:35 AM EDT Scheduled Orders Name Type Priority Associated Diagnoses Orde r Schedule 100-G GESTATIONAL GLUCOSE, 3 HOUR Lab Routine High-risk in second [...] Not on filedocumented as of this encounter Procedures Procedure Name Priority Date/Time Associated Diagnosis Comments 100-G GESTATIONAL GLUCOSE, 1 HOUR Routine 10/11/2023 9:35 AM EDT High-risk in second trimester Obesity in , antepartum 100-G GESTATIONAL GLUCOSE, FASTING Routine 10/11/2023 8:25 AM EDT High-risk in second trimester Obesity in , antepartum documented in this encounter Results * (ABNORMAL) 100-G GESTATIONAL GLUCOSE, 1 HOUR (10/11/2023 9:35 AM EDT) 100-g Gestational Glucose, 1 Hour 225(H) 70 - 179 mg/dL 10/11/2023 10:23 AM EDT LABORATORY [place] 57-10 Blood Venous blood specimen / Unknown Venipuncture / Unknown 10/11/2023 9:35 AM EDT 10/11/2023 9:40 AM EDT Aurora MCQUEEN LAB BLOOD ORDERABLES LABORATORY [place] 57-[address] [place] [address] * (ABNORMAL) 100-G GESTATIONAL GLUCOSE, FASTING (10/11/2023 8:25 AM EDT) 100-g Gestational Glucose, Fasting 101(H) 70 - 94 mg/dL 10/11/2023 9:13 AM EDT [facility] Blood Venous blood specimen / Unknown Venipuncture / Unknown 10/11/2023 8:25 AM EDT 10/11/2023 8:25 AM EDT Narrative [facility] - 10/11/2023 9:13 AM EDT Based on ACOG guideline, gestational diabetes mellitus is diagnosed when any of the following is met: Fasting is greater than or equal to 95 mg/dL 1 hour is greater than or equal to 180 mg/dL 2 hour is greater than or equal to 155 mg/dL 3 hour is greater than or equal to 140 mg/dL Aurora MCQUEEN LAB BLOOD ORDERABLES LAB[facility]ATORY [facility] 57-10 [address] [facility] [place] [address] documented in this encounter Visit Diagnoses Diagnosis High-risk in second trimester Obesity in , antepartum Obesity complicating , childbirth, or the puerperium, antepartum condition or complication documented in this encounter Care Teams Bacon De Rinder Relationship Specialty Start Date End Date Aruna Yoo DO [address] [place] [address] PCP - General Family Medicine 02/08/11 documented as of this encounter
--- OUTSIDE RECORDS SUMMARY | 2023-12-29 12:11 | External Medical Summary ---
Author Name Unknown Address Unknown Organization K01:LABORATORY [facility] - [facility] [address] [place] [address] Laboratory Report Ordering Provider Test Date Status ISRA ROMO 10/11/2023 08:25:40 Final Observation Date Value Abnormality Reference (Units ) Status Creatinine 10/11/2023 08:25:40 0.5 0.5-1.0 (mg/dL) Final Glomerular filtration rate/1.73 sq M.predicted [Volume Rate/Area] in Serum, Plasma or Blood by Creatinine-based formula (CKD-EPI) 10/11/2023 08:25:40 >90 >=60 (mL/min) Final eGFR is calculated based on the CKD-EPI 2020 equation Performing Location LABORATORY [facility] - [address] [place] [address]
--- OUTSIDE RECORDS SUMMARY | 2023-12-29 12:11 | External Medical Summary | Summary of Care ---
Author Name Unknown Organization [facility] Address [address] [facility] [place] [address] Phone [phone] Care Team Providers Care Grease Cup Filler Name Role Phone Aruna Yoo DO Primary Care Provider Encounter Details Date Type Department Care Team (Late st Contact Info) Description 10/11/2023 Telephone Gynecology/Obstetrics [facility] [address] [place] [address] Aurora Stewart CRNP [address] [place] [address] Allergies Active Allergy Reactions Criticality Noted Date Comments Gluten Meal 11/18/2016 documented as of this encounter (statuses as of 10/13/2023) Medications Medication Sig Dispensed Refills Start Date [...] 07/04/2023 Active Ondansetron HCl 4 MG Oral TabletIndications:Urban sea and vomiting during Take 1 Tablet by mouth in the morning and 1 Tablet at noon and 1 Tablet before bedtime. 30 Tablet 2 10/11/2023 Active Promethazine HCl 25 MG Oral Tablet (Phenergan)Indication s:Nausea and vomiting during Take 1 Tablet by mouth every 6 hours as needed for Nausea. 30 Tablet 1 10/11/2023 Active Breast PumpIndications:Breas t feeding status of mother Use as directed. 1 Each 10/11/2023 Active documented as of this encounter (statuses as of 10/13/2023) Active Problems Problem Noted Date Diagnosed Date [...] as of this encounter (statuses as of 10/13/2023) Resolved Problems Problem Noted Date Diagnosed Date [...] as of this encounter (statuses as of 10/13/2023) Immunizations Name Administration Dates Next Due DTaP [...] money to get more. Never true 05/11/2023 [place] Depression Scale Answer Date Recorded [place] Depression Scale Total 4 05/18/2023 The thought [...] No 05/11/2023 Does the household have a [place] [facility] [facility] source of income? (Household - for [...] encounter Miscellaneous Notes * Telephone Encounter - Cindi Jaime RN - 10/13/2023 10:17 AM EDT Patient calling back in today stating that she would like for the testing supplies to be sent to the pharmacy for her prior to her appt on Tuesday with Dr. Resendiz. Patient states she is sorry for declining everything on the phone the other day. She still has questions about this and plans to keep theappointment tuesday to discuss further but Asking for testing supplies and MFM/franchise sales director referral for GDM. Pharmacy updated in chart. * Telephone Encounter - Claudia Phoenix LPN - 10/11/2023 2:39 PM EDT Appt scheduled with MD * Telephone Encounter - Aurora Stewart CRNP - 10/11/2023 2:15 PM EDT If pt is not agreeable, she needs to meet with a physician (not an AP) to further discuss this. Would recommend this be sooner rather than later. * Telephone Encounter - Claudia Phoenix LPN - 10/11/2023 1:50 PM EDT Patient notified. She said she is not going to be able to do that, she is not doing that. She wouldlike to discuss more with a provider. Asking to repeat testing as she feels her 1st one being elevated that is not normal. * Telephone Encounter - Aurora Stewart CRNP - 10/11/2023 12:22 PM EDT Please notify pt that she failed her 3hr GTT. This is diagnostic of GDM. Will need to check sugars 4 times a day and get results to this office. Ask her pharmacy so I can send supplies. Review frequency of checking sugars. Would like it if she could send a Snapdeal message in one week with blood sugar readings- can take a picture of paper with readings if that is easier than typing them all in. documented in this encounter Plan of Treatment Upcoming Encounters Date Type Department Care Team (Late st Contact Info) Description 10/18/2023 12:15 PM EDT Office Visit Gynecology/Obstetrics [facility] 132 [facility] [place] [address] Carrie Resendiz MD [address] [place] [phone] 10/25/2023 8:45 AM EDT Office Visit Gynecology/Obstetrics [facility] 132 [facility] [place] [address] Missy Álvarez CNM [address] [place] [phone] Health Maintenance Due Date Last Done Comments [...] Not on filedocumented as of this encounter Care Teams Grease Cup Filler Relationship Specialty Start Date End Date Aruna Yoo DO [address] [place], [place] [address] PCP - General Family Medicine 02/08/11 documented as of this encounter
--- OUTSIDE RECORDS SUMMARY | 2023-12-29 12:11 | External Medical Summary | Summary of Care ---
Author Name Unknown Organization [facility] Address [address] [facility] [place] [address] Phone [phone] Care Team Providers Care Spreading Machine Operator Name Role Phone Aruna Yoo DO Primary Care Provider Reason for Referral * Evaluate & Treat - Unlimited Visits (Within 10 days (routine)) - Authorized Specialty Diagnoses / Procedures Referred By Contac t Referred To Contact Senior User Experience Architect / Nutrition Services Diagnoses Gestational diabetes mellitus (GDM) in second trimester, gestational diabetes method of control unspecified Angelito Bustamante CRNP [address] [place] [address] Referral ID Status Reason Start Date Expiration Date Visits Requested Visits Authorized [id number] Authorized Specialty Services Required 10/13/2023 999 [id number] Question Answer Is the patient ? Yes Referral Priority Within 10 days (routine) Where should this appointment be scheduled? [place] Comments This referral is for Diabetes Self-Management Training (DSMT) by a recognized [place] [employer] Association (ADA) religious educator: Nurse (RN), Registered Dietitian Skimmer Scoop Operator (RDN), and/or Diabetes Medical Nutrition Therapy (MNT) Management (dietitian only). Diabetes educators are responsible for assessing the participant's diabetes education needs, and providing diabetes self-management training in accordance with the standards set by the ADA for DSMT. Any adjustment in diabetes therapy will be made within the guidelines of standards of practice and [facility] approved policies and procedures. I understand that the religious educator will keep me informed. Areas of Education: Pathophysiology Nutrition Physical Activity Medications Monitoring Acute Complications Chronic Complications Psychosocial Management Promote Health/Behavior Change Participant will be offered 1:1 education training if there is a lack of classes available within 2 months. Providers can also order 1:1 training if indicated for participant for the following reasons: 1:1 Training for Insulin Initiation Participant Inappropriate for Class Setting By my electronic signature, I understand that my patient will be offered the comprehensive ADA content area above unless deemed not appropriate of I specify otherwise here: * Evaluate & Treat - Unlimited Visits (Within 10 days (routine)) - Authorized Specialty Diagnoses / Procedures Referred By Karolina paulson Referred To Contact Obstetrics/Gynecology / Maternal Medicine Diagnoses Gestational diabetes mellitus (GDM) in second trimester, gestational diabetes method of control unspecified Angelito Bustamante CRNP [address] [place] [id number] Referral ID Status Reason Start Date Expiration Date Visits Requested Visits Authorized [id number] Authorized Specialty Services Required 10/13/2023 999 999 Question Answer Referral Priority Within 10 days (routine) Has the patient had a viability scan? Yes Date performed 05/18/2023 Location performed Radiology Reason for referral Diabetes Diabetes type Gestational Where should this appointment be scheduled? [facility] Comments /Para: LMP: Patient's last menstrual period was 04/01/2023. Patient is . SCOOTER: 01/06/2024, by Last Menstrual Period Pre-Gravid BMI: 38.77 Encounter Details Date Type Department Care Team (Late st Contact Info) Description 10/11/2023 Telephone Gynecology/Obstetrics Odilia Zhong [address] [place] [address] Aurora Stewatr CRNP [address] [place] [id number] Allergies Active Allergy Reactions Criticality Noted Date [...] Use as directed. 1 Each 10/11/2023 Active OneTouch Verio Flex System w/Device KitIndications:Gestat ional diabetes mellitus (GDM) in second trimester, gestational diabetes method of control unspecified Use to test blood sugars 4 times daily (fasting, 1 hour after breakfast, lunch, and dinner) 1 Kit 10/13/2023 Active OneTouch Verio In Vitro Strip (Glucose Blood)Indications:Ges tational diabetes mellitus (GDM) in second trimester, gestational diabetes method of control unspecified Use to test blood sugars 4 times daily (fasting, 1 hour after breakfast, lunch, and dinner) 125 Strip 6 10/13/2023 Active OneTouch Delica Lancets 30GIndications:Gestat ional diabetes mellitus (GDM) in second trimester, gestational diabetes method of control unspecified Use to test blood sugars 4 times daily (fasting, 1 hour after breakfast, lunch, and dinner) 200 Each 6 10/13/2023 Active documented as of this encounter (statuses as of 10/13/2023) Active Problems Problem Noted Date Diagnosed Date GDM (gestational diabetes mellitus) 10/11/2023 Antepartum anemia complicating 07/09/2 024 Overview: Hgb 11.2 at 27 wks, [...] money to get more. Never true 05/11/2023 [place] Depression Scale Answer Date Recorded [place] Depression Scale Total 4 05/18/2023 The thought [...] as of this encounter Miscellaneous Notes * Addendum Note - Angelito Bustamante CRNP - 10/13/2023 10:27 AM EDT Addended by: ANGELITO BUSTAMANTE on: 10/13/2023 10:27 AM Modules accepted: Orders * Telephone Encounter - Angelito Bustamante CRNP - 10/13/2023 10:26 AM EDT Referrals for MFM and paraeducator placed. Rx sent for testing supplies. Check blood sugars 4x/day: AM fasting (nothing by mouth for 8-10 hrs overnight) should be <95, 1hr after each meal should be 140. CHARISSE Galindo * Telephone Encounter - Cindi Jaime RN [...] further but Asking for testing supplies and MFM/forestry contractor referral for GDM. Pharmacy updated in chart. [...] like it if she could send a Stupil[employer] message in one week with blood sugar readings- can take a picture of paper with readings if that is easier than typing them all in. documented in this encounter Plan of Treatment Upcoming Encounters Date Type Department Care Team (Late st Contact Info) Description 10/18/2023 12:15 PM EDT Office Visit Gynecology/Obstetrics [facility] 132 [facility] [place] [address] Carrie Resendiz MD [address] [place], [place] [phone] 10/25/2023 8:45 AM EDT Office Visit Gynecology/Obstetrics [facility] 132 [facility] [place] [address] Missy Álvarez CNM [address] [place], [place] [phone] Scheduled Orders Name Type Priority Associated Diagnoses Orde r Schedule MFM US MATERNAL 1ST FETUS Medical Imaging Routine Gestational diabetes mellitus (GDM) in second trimester, gestational diabetes method of control unspecified Other specified related conditions, second trimester Expected: 10/20/2023 (Approximate), Expires: 11/12/2024 Scheduled Referrals Name Type Priority Associated Diagnoses Orde r Schedule MATERNAL MEDICINE REFERRAL OP Referral Within 10 days (routine) Gestational diabetes mellitus (GDM) in second trimester, gestational diabetes method of control unspecified Ordered: 10/13/2023 DIABETES MANAGEMENT EDUCATION (ADA) REFERRAL Referral Within [...] second trimester, gestational diabetes method of control unspecified- Primary Other specified related conditions, second trimester documented in this encounter Care Teams Spreading Machine Operator Relationship Specialty Start Date End Date Aruna Yoo DO [address] [place] [address] PCP - General Family Medicine 02/08/11 documented as of this encounter
--- OUTSIDE RECORDS SUMMARY | 2023-12-29 12:11 | External Medical Summary | Summary of Care ---
Author Name Unknown Organization [facility] Address [address] [facility] [place] [address] Phone [phone] Care Team Providers Care Straight Line Edger Name Role Phone Aruna Yoo DO Primary Care Provider Reason for Referral * Evaluate & Treat - Unlimited Visits (Within 10 days (routine)) - Authorized Specialty Diagnoses / Procedures Referred By Contac t Referred To Contact Route Service Representative / Nutrition Services Diagnoses Gestational diabetes mellitus (GDM) in second trimester, gestational diabetes method of control unspecified Angelito Bustamante CRNP [address] [place] [address] Referral ID Status Reason Start Date Expiration Date Visits Requested Visits Authorized [id number] Authorized Specialty Services Required 10/13/2023 999 999 Question Answer Is the patient ? Yes Referral Priority Within 10 days (routine) Where should this appointment be scheduled? Neno Comments This referral is for Diabetes Self-Management Training (DSMT) by a recognized [place] Diabetes Association (ADA) educator senior clinical: Nurse (RN), Registered Dietitian Glazier Supervisor (RDN), and/or Diabetes Medical Nutrition Therapy (MNT) Management (dietitian only). Diabetes educators are responsible for assessing the participant's diabetes education needs, and providing diabetes self-management training in accordance with the standards set by the ADA for DSMT. Any adjustment in diabetes therapy will be made within the guidelines of standards of practice and [facility] approved policies and procedures. I understand that the educator senior clinical will keep me informed. Areas of Education: [...] method of control unspecified Angelito Bustamante CRNP [address] [place] [id number] Referral ID Status Reason Start Date Expiration Date Visits Requested Visits Authorized [id number] Authorized Specialty Services Required 10/13/2023 999 999 [...] Info) Description 10/11/2023 Telephone Gynecology/Obstetrics Odilia Zhong [address] [place] [address] Aurora Stewart CRNP [address] [place] [id number] Allergies Active Allergy Reactions Criticality Noted Date [...] money to get more. Never true 05/11/2023 [place] Depression Scale Answer Date Recorded [place] Depression Scale Total 4 05/18/2023 The thought [...] Encounter - Cindi Jaime RN - 10/13/2023 11:03 AM EDT Attempted to call patient. No answer, LVM to return call. * Addendum Note - Angelito Bustamante CRNP - 10/13/2023 10:27 AM EDT Addended by: ANGELITO BUSTAMANTE on: 10/13/2023 10:27 AM Modules accepted: Orders * Telephone Encounter - Angelito Bustamante CRNP - 10/13/2023 10:26 AM EDT Referrals for MFM and art educator placed. Rx sent for testing supplies. Check [...] further but Asking for testing supplies and MFM/judge's clerk referral for GDM. Pharmacy updated in chart. [...] like it if she could send a [employer] message in one week with blood sugar readings- can take a picture of paper with readings if that is easier than typing them all in. documented in this encounter Plan of Treatment Upcoming Encounters Date Type Department Care Team (Late st Contact Info) Description 10/18/2023 12:15 PM EDT Office Visit Gynecology/Obstetrics [facility] 132 [facility] [place] [address] Carrie Resendiz MD [address] [place] [address] 10/25/2023 8:45 AM EDT Office Visit Gynecology/Obstetrics [facility] 132 [facility] [place] [address] Missy Álvarez CNM 400 [facility] [place] [phone] Scheduled Orders Name Type Priority Associated Diagnoses [...] trimester documented in this encounter Care Teams Straight Line Edger Relationship Specialty Start Date End Date Aruna Yoo DO [address] [place] [address] PCP - General Family Medicine 02/08/11 documented as of this encounter
--- OUTSIDE RECORDS SUMMARY | 2023-12-29 12:11 | External Medical Summary ---
Author Name Unknown Address Unknown Organization K0G:LABORATORY [facility] R[facility]NA 57-[address] - [address] [place] [address] Laboratory Report Ordering Provider Test Date Status ISRA ROMO 10/11/2023 11:29:02 Final Observation Date Value Abnormality Reference (Units ) Status Glucose [Mass/volume] in Serum or Plasma --3 hours post dose glucose 10/11/2023 11:29:02 81 70-139 (mg/dL) Final Performing Location LABORATORY [place] [facility] 57-1 0 - [address] [place] [address]
--- OUTSIDE RECORDS SUMMARY | 2023-12-29 12:11 | External Medical Summary | Summary of Care ---
Author Name Unknown Organization [facility] Address [address] [place] [address] Phone [phone] Care Team Providers Care Ceiling Cleaner Name Role Phone Aruna Yoo DO Primary Care Provider Reason for Visit * Reason Onset Date Comments Referral 10/13/2023 Encounter Details Date Type Department Care Team (Late st Contact Info) Description 10/13/2023 Telephone Operations Section Manager Obstetrics [facility], [place] [address] [place], [place] [phone] [place], Nurse Operations Section Manager [facility] [address] [place], [place] [phone] Referral Allergies Active Allergy Reactions Criticality Noted [...] before bedtime. 60 Tablet 12 10/11/2023 Active ChatwalaTouch Verio Flex System w/Device KitIndications:Gestati onal diabetes [...] and dinner) 125 [address] 6 10/13/2023 Active [employer]uch Delica Lancets 30GIndications:Gestati onal diabetes mellitus (GDM) [...] money to get more. Never true 05/11/2023 Sherwood Depression Scale Answer Date Recorded [place]wood Depression Scale Total 4 05/18/2023 The thought [...] the anatomy scan can be done at [facility] in [place] or at [facility] in [place]. Patient stated that she does not want [...] Please schedule for 45 MINUTE ADAPT WITH PRODUCTION SUPPORT DEVELOPER, in time frame of within 1 week at location [place] with the indication of GDM. Please schedule anatomy within 2-3 weeks. Referring Provider: Backer, Rosalba Mott, KEYING MACHINE OPERATOR documented in this encounter Plan of Treatment Upcoming Encounters Date Type Department Care Team (Late st Contact Info) Description 10/18/2023 12:15 PM EDT Office Visit Gynecology/Obstetrics [facility] [address] [place] [address] Carrie [facility]endiz [facility] [address] [facility] [place] [address] 10/25/2023 8:45 AM EDT Office Visit Gynecology/Obstetrics [facility] [address] [place] [address] Missy Álvarez CNM [address] [place] [phone] Health Maintenance Due Date Last Done Comments [...] filedocumented as of this encounter Care Teams Ceiling Cleaner Relationship Specialty Start Date End Date Aruna Yoo DO [address] [place] [address] PCP - General Family Medicine 02/08/11 documented as of this encounter
--- OUTSIDE RECORDS SUMMARY | 2023-12-29 12:11 | External Medical Summary | Summary of Care ---
Author Name Unknown Organization [facility] Address [address] [facility] [place] [address] Phone [phone] Care Team Providers Care Patient Account Specialist Name Role Phone Aruna Yoo DO Primary Care Provider Reason for Visit * Reason Comments Return Visit Encounter Details Date Type Department Care Team (Late st Contact Info) Description 10/11/2023 9:30 AM EDT Office Visit Gynecology/Obstetric [facility] [address] [facility] [place] [address] Katie Nunn PA-C [address] [facility] [place] [address] High-risk in second trimester*; Obesity in , antepartum; Multigravida of advanced maternal age in second trimester; Anxiety during ; History of PCOS; Need for prophylactic vaccination with combined kaqlxmywur-gifklqf-rr rtussis (DTP) vaccine; Nausea and vomiting during ; Breast feeding status of mother Allergies Active Allergy Reactions Criticality Noted Date [...] 07/04/2023 Active Ondansetron HCl 4 MG Oral TabletIndications :Nausea and vomiting during Take 1 Tablet by mouth in the morning and 1 Tablet at noon and 1 Tablet before bedtime. 30 Tablet 2 10/11/2023 Active Promethazine HCl 25 MG Oral Tablet (Phenergan)Indica tions:Nausea and vomiting during Take 1 Tablet by mouth every 6 hours as needed for Nausea. 30 Tablet 1 10/11/2023 Active Breast PumpIndications:B reast feeding status of mother Use as directed. 1 Each 10/11/2023 Active Ondansetron HCl 4 MG Oral Tablet [...] money to get more. Never true 05/11/2023 [place] Depression Scale Answer Date Recorded [place] Depression Scale Total 4 05/18/2023 The thought [...] No 05/11/2023 Does the household have a [facility] source of income? (Household - for ages [...] Reading Time Taken Comments Blood Pressure 114/72 10/11/2023 9:38 AM EDT Pulse - - Temperature - - Respiratory Rate - - Oxygen Saturation - - Inhaled Oxygen Concentration - - Weight 102.1 kg (225 lb) 10/11/2023 9:38 AM EDT Height 157.5 cm (5' 2") 10/11/2023 9:38 AM EDT Body Mass Index 41.15 10/11/2023 9:38 AM EDT documented in this encounter Progress Notes * Katie Nunn PA-C - 10/11/2023 9:42 AM EDT Jane Tejada is a 33 year old female here for her routine OB appointment at 27w4d Her Estimated Date of Delivery: 01/06/24 Nausea has been increased after gwen a cold. She is requesting refills on her nausea medications. No further concerns. REVIEW OF SYSTEMS She affirms movement. Denies vaginal bleeding, LOF, contractions, headaches, vision changes, chest pain. PHYSICAL EXAM Filed Vitals: 10/11/23 0938 BP: 114/72 Weight: 102.1 kg (225 lb) Height: 1.575 m (5' 2") +FHT 130s Fundal height 28 cm ASSESSMENT/PLAN High-risk in second trimester (Primary) Obesity in , antepartum - Class 2 - Growth U/S completed today. Results WNL. Baby is breech. Multigravida of advanced maternal age in second trimester Anxiety during History of PCOS Need for prophylactic vaccination with combined acwjkhoyrg-ctkuabm-vdsxqibnv (DTP) vaccine - Yijvxut-Ukiuhj-Iozbn Pertussis (Boostrix) inj 0.5 mL Nausea and vomiting during - Ondansetron HCl 4 MG Oral Tablet; Take 1 Tablet by mouth in the morning and 1 Tablet at noon and 1 Tablet before bedtime. - Promethazine HCl 25 MG Oral Tablet (Phenergan); Take 1 Tablet by mouth every 6 hours as needed for Nausea. Breast feeding status of mother - Breast Pump; Use as directed. Supervision of - recommended tdap vaccine - patient received today - 3rd trimester labs in process at the time of her appointment today. - she desires prescription for a breast pump - is planning Minipill for contraception - rhogam is not needed d/t A+ blood type - labor precautions and kick counts reviewed RTO in 2 weeks Katie Nunn PA-C 10/11/2023 documented in this encounter Nursing Notes * Mamta Bergman LPN - 10/11/2023 10:07 AM EDT Patient here for tdap injection. Patient doing well no complaints. Injection given IM as ordered. Patient tolerated well. Patient to follow up as directed. Patient instructed to call if any complications. Patient verbalized understanding of instructions given and her follow up appt for LINETTE Injection site: Left Deltoid Medication Source: Dispensed stock medication * Mamta Bergman LPN - 10/11/2023 9:43 AM EDT 27w4d Completing 3 hr glucola and 28 week labs today Had growth US today- 74%, nora 18.5cm , hr 137. Denies concerns. Would like tdap. documented in this encounter Plan of Treatment Upcoming Encounters Date Type Department Care Team (Late st Contact Info) Description 10/25/2023 8:45 AM EDT Office Visit Gynecology/Obstetrics [facility] [address] [facility] [place] [address] Missy Álvarez CNM [address] [place] [address] [place] [address] Health Maintenance Due Date Last Done Comments [...] of other genital system and obstetric disorders Need for prophylactic vaccination with combined zhropycknj-bbcnxxh-xuygyhgfu (DTP) vaccine Nausea and vomiting during Breast feeding status of mother care and examination of lactating mother documented in this encounter Care Teams Patient Account Specialist Relationship Specialty Start Date End Date Aruna Yoo DO [address] [place] [address] PCP - General Family Medicine 02/08/11 documented as of this encounter
--- OUTSIDE RECORDS SUMMARY | 2023-12-29 12:11 | External Medical Summary ---
Author Name Unknown Address Unknown Organization K0G:LABORATORY [facility] RATNA 57-[address] - [address] [place] [address] Laboratory Report Ordering Provider Test Date Status ISRA ROMO 10/11/2023 09:35:00 Final Observation Date Value Abnormality Reference (Units ) Status Glucose [Mass/volume] in Serum or Plasma --1 hour post dose glucose 10/11/2023 09:35:00 225 Above high normal 70-179 (mg/dL) Final Performing Location LABORATORY [facility] R[facility]NA 57-1 0 - [address] [place] [address]
--- OUTSIDE RECORDS SUMMARY | 2023-12-29 12:11 | External Medical Summary | Summary of Care ---
Author Name Unknown Organization [facility] Address [address] [facility] Phone [phone] Care Team Providers Care Manager Physical Name Role Phone Aruna Yoo DO Primary Care Provider Reason for Visit * Reason Comments Outpatient Testing Encounter Details Date Type Department Care Team (Late st Contact Info) Description 10/11/2023 8:20 AM EDT Laboratory Laboratory, [facility] [place] [phone] [facility] [place] [address] High-risk in second trimester; Obesity in , [...] money to get more. Never true 05/11/2023 [place] Depression Scale Answer Date Recorded [place] Depression Scale Total 4 05/18/2023 The thought [...] as of this encounter Plan of Treatment Pending Results Name Type Priority Associated Diagnoses [...] 10/11/2023 8:25 AM EDT 100-G GESTATIONAL GLUCOSE, 1 HOUR Lab Routine High-risk in second trimester Obesity in , antepartum 10/11/2023 9:35 AM EDT Scheduled Orders Name Type Priority Associated Diagnoses Orde r Schedule 100-G GESTATIONAL GLUCOSE, 2 HOUR Lab Routine [...] Date/Time Associated Diagnosis Comments 100-G GESTATIONAL GLUCOSE, FASTING Routine 10/11/2023 8:25 AM EDT High-risk in second trimester Obesity in , antepartum documented in this encounter Results * (ABNORMAL) 100-G GESTATIONAL GLUCOSE, FASTING (10/11/2023 8:25 AM EDT) 100-g Gestational Glucose, Fasting 101(H) 70 - 94 mg/dL 10/11/2023 9:13 AM EDT LABORATORY [facility] 57-10 Blood Venous blood specimen / Unknown Venipuncture / Unknown 10/11/2023 8:25 AM EDT 10/11/2023 8:25 AM EDT Narrative LABORATORY [place] [facility] 57-10 - 10/11/2023 9:13 AM EDT Based [...] Aurora MCQUEEN LAB BLOOD ORDERABLES LABORATORY [place] 57-10 132 [facility] [place] [address] documented in this encounter Visit Diagnoses Diagnosis High-risk in second trimester Obesity in , antepartum Obesity complicating , childbirth, or the puerperium, antepartum condition or complication documented in this encounter Care Teams Manager Physical Relationship Specialty Start Date End Date Aruna Yoo DO [address] [place] [address] PCP - General Family Medicine 02/08/11 documented as of this encounter
--- OUTSIDE RECORDS SUMMARY | 2023-12-29 12:11 | External Medical Summary ---
Author Name Unknown Address Unknown Organization K01:LAB[facility]ATORY [facility] - [address] [place] [address] Laboratory Report Ordering Provider Test Date Status ISRA ROMO 10/11/2023 08:25:40 Final Observation Date Value Abnormality Reference (Units ) Status Folic Acid 10/11/2023 08:25:40 >20.0 >4.5 (ng/ mL) Final Performing Location [facility] - [address] [place] [address]
--- OUTSIDE RECORDS SUMMARY | 2023-12-29 12:11 | External Medical Summary | Summary of Care ---
Author Name Unknown Organization [facility] Address [address] [facility] [address] Phone [phone] Care Team Providers Care Hvac Services Professional Name Role Phone Aruna Yoo DO Primary Care Provider Reason for Visit * Reason Comments Outpatient Testing Encounter Details Date Type Department Care Team (Late st Contact Info) Description 10/11/2023 8:20 AM EDT Laboratory Laboratory, [facility] [place] [phone] [facility] [place] [address] High-risk in second trimester; Obesity in , [...] money to get more. Never true 05/11/2023 Basin Depression Scale Answer Date Recorded [place] Depression Scale Total 4 05/18/2023 The thought [...] 10/25/2023 8:45 AM EDT Office Visit Gynecology/Obstetrics [facility] 132 [facility] [place] [address] Missy Álvarez CNM [address] [place] [address] [place] [phone] Pending Results Name Type Priority Associated Diagnoses [...] in , antepartum 10/11/2023 10:35 AM EDT 100-G GESTATIONAL GLUCOSE, 3 HOUR Lab Routine High-risk in second trimester Obesity in , antepartum 10/11/2023 11:29 AM EDT Health Maintenance Due Date Last Done [...] EDT Aurora MCQUEEN LAB BLOOD ORDERABLES [facility] [address] [place] [address] * (ABNORMAL) 100-G GESTATIONAL GLUCOSE, FASTING (10/11/2023 8:25 AM EDT) 100-g Gestational Glucose, Fasting 101(H) 70 - 94 mg/dL 10/11/2023 9:13 AM EDT [facility] 57-10 Blood Venous blood specimen / Unknown Venipuncture / Unknown 10/11/2023 8:25 AM EDT 10/11/2023 8:25 AM EDT Narrative [facility] 57-10 - 10/11/2023 9:13 AM EDT Based on ACOG guideline, gestational diabetes mellitus is diagnosed when any of the following is met: Fasting is greater than or equal to 95 mg/dL 1 hour is greater than or equal to 180 mg/dL 2 hour is greater than or equal to 155 mg/dL 3 hour is greater than or equal to 140 mg/dL Aurora Bauer Gregorioroney COMMUNICATION SKILLS INSTRUCTOR LAB BLOOD ORDERABLES LABORATORY [facility] 57-[address] [place] [address] documented in this encounter Visit Diagnoses Diagnosis High-risk in second trimester Obesity in , antepartum Obesity complicating , childbirth, or the puerperium, antepartum condition or complication documented in this encounter Care Teams Hvac Services Professional Relationship Specialty Start Date End Date Aruna Yoo DO [address] [place] [address] [place] [address] PCP - General Family Medicine 02/08/11 documented as of this encounter
--- OUTSIDE RECORDS SUMMARY | 2023-12-29 12:11 | External Medical Summary ---
Author Name Unknown Address Unknown Organization K01:LAB[facility]ORY [facility] - [address] [place] [address] Laboratory Report Ordering Provider Test Date Status ISRA ROMO 10/11/2023 08:25:40 Final Observation Date Value Abnormality Reference (Units ) Status Ferritin 10/11/2023 08:25:40 64 13-150 (ng /mL) Final Performing Location LAB[facility] - [address] [place] [address]
--- OUTSIDE RECORDS SUMMARY | 2023-12-29 12:11 | External Medical Summary ---
Author Name Unknown Address Unknown Organization K0G:[facility]ORY [facility] 57-[address] - [address] [place] [address] Laboratory Report Ordering Provider Test Date Status DEMETRIUSISRA 10/11/2023 08:25:40 Final Based on ACOG guideline, ges tational diabetes mellitus is diagnosed when any of the following is met:
Fasting is greater than or equal to 95 mg/dL
1 hour is greater than or equal to 180 mg/dL
2 hour is greater than or equal to 155 mg/dL
3 hour is greater than or equal to 140 mg/dL Observation Date Value Abnormality Reference (Units ) Status Glucose, fasting 10/11/2023 08:25:40 101 Above high no rmal 70-94 (mg/dL) Final Performing Location [facility]ORY [facility] 57-[address] 0 - [address] [place] [address]
--- OUTSIDE RECORDS SUMMARY | 2023-12-29 12:11 | External Medical Summary | Summary of Care ---
Author Name Unknown Organization [facility] Address [address] [facility] [place] [address] Phone [phone] Care Team Providers Care Dressing Machine Operator Name Role Phone Aruna Yoo DO Primary Care Provider Reason for Referral * Evaluate & Treat - Unlimited Visits (Within 10 days (routine)) - Authorized Specialty Diagnoses / Procedures Referred By Contac t Referred To Contact Delivery Truck Driver / Nutrition Services Diagnoses Gestational diabetes mellitus (GDM) in second trimester, gestational diabetes method of control unspecified Angelito Bustamante CRNP [address] [place] [address] Referral ID Status Reason Start Date Expiration Date Visits Requested Visits Authorized [id number] Authorized Specialty Services Required 10/13/2023 999 999 Question Answer Is the patient ? Yes Referral Priority Within 10 days (routine) Where should this appointment be scheduled? Neno Comments This referral is for Diabetes Self-Management Training (DSMT) by a recognized [place] Diabetes Association (ADA) healthcare educator: Nurse (RN), Registered Dietitian Adjunct Physics Instructor (RDN), and/or Diabetes Medical Nutrition Therapy (MNT) Management (dietitian only). Diabetes educators are responsible for assessing the participant's diabetes education needs, and providing diabetes self-management training in accordance with the standards set by the ADA for DSMT. Any adjustment in diabetes therapy will be made within the guidelines of standards of practice and [facility] approved policies and procedures. I understand that the healthcare educator will keep me informed. Areas of [...] method of control unspecified Angelito Bustamante CRNP [address] [employer] [place] [id number] Referral ID Status Reason Start Date Expiration Date Visits Requested Visits Authorized [id number] Authorized Specialty Services Required 10/13/2023 999 999 [...] Info) Description 10/11/2023 Telephone Gynecology/Obstetrics Odilia Zhong [address] [place] [address] Aurora Stewart CRNP [address] [place] [address] Allergies Active Allergy Reactions Criticality Noted Date [...] money to get more. Never true 05/11/2023 M[place] Depression Scale Answer Date Recorded [place] Depression Scale Total 4 05/18/2023 The thought [...] Encounter - Cindi Jaime RN - 10/13/2023 11:12 AM EDT Patient called and made aware of below. She verbalized understanding. * Telephone Encounter - Cindi Jaime RN - 10/13/2023 11:03 AM EDT Attempted to call patient. No answer, LVM to return call. * Addendum Note - Angelito Bustamante CRNP - 10/13/2023 10:27 AM EDT Addended by: ANGELITO BUSTAMANTE on: 10/13/2023 10:27 AM Modules accepted: Orders * Telephone Encounter - Angelito Bustamante CRNP - 10/13/2023 10:26 AM EDT Referrals for MFM and certified diabetes educator placed. Rx sent for testing supplies. [...] further but Asking for testing supplies and MFM/medicare interviewer referral for GDM. Pharmacy updated in chart. [...] like it if she could send a [employer] message in one week with blood sugar readings- can take a picture of paper with readings if that is easier than typing them all in. documented in this encounter Plan of Treatment Upcoming Encounters Date Type Department Care Team (Late st Contact Info) Description 10/18/2023 12:15 PM EDT Office Visit Gynecology/Obstetrics [facility] [address] [place] [address] Carrie Resendiz MD [address] [place] [address] 10/25/2023 8:45 AM EDT Office Visit Gynecology/Obstetrics [facility] [address] [place] [address] Missy Álvarez CNM [address] [place] [address] Scheduled Orders Name Type Priority Associated Diagnoses [...] trimester documented in this encounter Care Teams Dressing Machine Operator Relationship Specialty Start Date End Date Aruna Yoo DO [address] [place] [address] PCP - General Family Medicine 02/08/11 documented as of this encounter
--- OUTSIDE RECORDS SUMMARY | 2023-12-29 12:11 | External Medical Summary | Summary of Care ---
Author Name Unknown Organization [facility] Address [address] [facility] [place] [address] Phone [phone] Care Team Providers Care Supervisor Wood Room Name Role Phone Aruna Yoo DO Primary Care Provider Encounter Details Date Type Department Care Team (Late st Contact Info) Description 10/11/2023 Telephone Gynecology/Obstetrics [facility] [address] [place] [address] Aurora Stewart CRNP [address] [place] [address] Allergies Active Allergy Reactions Criticality Noted Date [...] Diagnosed Date GDM (gestational diabetes mellitus) 10/11/2023 GBS (group B streptococcus) UTI complicating pre [...] money to get more. Never true 05/11/2023 [place] Depression Scale Answer Date Recorded [place] Depression Scale Total 4 05/18/2023 The thought [...] encounter Miscellaneous Notes * Telephone Encounter - Claudia Phoenix LPN [...] like it if she could send a SeeOn message in one week with blood sugar readings- can take a picture of paper with readings if that is easier than typing them all in. documented in this encounter Plan of Treatment Upcoming Encounters Date Type Department Care Team (Late st Contact Info) Description 10/18/2023 12:15 PM EDT Office Visit Gynecology/Obstetrics [facility] [address] [place] [address] Carrie Resendiz MD [address] [place] [id number] 10/25/2023 8:45 AM EDT Office Visit Gynecology/Obstetrics [facility] [address] [place] [address] Missy Álvarez CNM [address] [place] [address] Health Maintenance Due Date Last Done [...] filedocumented as of this encounter Care Teams Supervisor Wood Room Relationship Specialty Start Date End Date Aruna Yoo DO [address] [place] [address] PCP - General Family Medicine 02/08/11 documented as of this encounter
--- OUTSIDE RECORDS SUMMARY | 2023-12-29 12:11 | External Medical Summary ---
Author Name Unknown Address Unknown Organization [id number]:[facility] [place] [facility] [address] [facility] [address] Laboratory Report Ordering Provider Test Date Status DEMETRIUSISRA 10/11/2023 08:25:40 Final Observation Date Value Abnormality Reference (Units ) Status Retic, % (auto) 10/11/2023 08:25:40 1.80 0.80-1.90 (%) Final Reticulocytes, Absolute 10/11/2023 08:25:40 68.6 31.3-100.1 (K/uL) Final Reticulocyte fraction, immature 10/11/2023 08:25:40 18.3 2.5-20.6 (%) Final Reticulocyte HGB 10/11/2023 08:25:40 32.6 29.7-37.4 (pg) Final Performing Location [facility] [place] [address] [facility] [address]
--- OUTSIDE RECORDS SUMMARY | 2023-12-29 12:11 | External Medical Summary ---
Author Name Unknown Address Unknown Organization [id number][facility] [address] [place] [address] Laboratory Report Ordering Provider Test Date Status ISRA ROMO 10/11/2023 10:35:22 Final Observation Date Value Abnormality Reference (Units ) Status Glucose, 2-hr post glucose challenge 10/11/2023 10:35:22 114 70-154 (mg/dL) Final Performing Location LABORATORY [facility] [place] 57-[address] 0 [address] [place] [address]
--- OUTSIDE RECORDS SUMMARY | 2023-12-29 12:11 | External Medical Summary ---
Author Name Unknown Address Unknown Organization [id number]:[facility]ATORY [facility] [place] [address] [place] [facility] [place] [address] Laboratory Report Ordering Provider Test Date Status ISRA ROMO 10/11/2023 08:25:40 Final Observation Date Value Abnormality Reference (Units ) Status SYNC LEUKOCYTES IN BLOOD BY AUTOMATED COUNT 10/11/2023 08:25:40 11.84 Above high normal 4.00-10.80 (K/uL) Final Segs 10/11/2023 08:25:40 57.5 40.0-75.0 (%) Final Lymphs % 10/11/2023 08:25:40 32.7 18.0-42.0 (%) Final Monos 10/11/2023 08:25:40 4.0 1.0-11.0 (%) Final Eosinophils 10/11/2023 08:25:40 4.2 0.0-6.0 (%) Final Basos 10/11/2023 08:25:40 0.4 0.0-2.0 (%) Final Immature Granulocyte, Percent 10/11/2023 08:25:40 1.2 0.0-2.0 (%) Final Absolute Segs 10/11/2023 08:25:40 6.81 1.80-7.70 (K/uL) Final Lymphs, absolute 10/11/2023 08:25:40 3.87 1.00-4.80 (K/ul) Final Monos, Abs 10/11/2023 08:25:40 0.47 0.00-1.10 (K/uL) Final Eos, Abs 10/11/2023 08:25:40 0.50 0.00-0.70 (K/uL) Final Basos, Abs 10/11/2023 08:25:40 0.05 0.00-0.20 (K/uL) Final Immature Granulocytes, Number 10/11/2023 08:25:40 0.14 0.00-0.20 (K/uL) Final Performing Location LAB[facility]ATORY [facility] [place] - [address] [facility] [address]
--- OUTSIDE RECORDS SUMMARY | 2023-12-29 12:11 | External Medical Summary ---
Author Name Unknown Address Unknown Organization K01:LABORATORY C - [address] [place] [address] Laboratory Report Ordering Provider Test Date Status ISRA ROMO 10/11/2023 08:25:40 Final Observation Date Value Abnormality Reference (Units ) Status Vitamin B12 10/11/2023 08:25:40 929 749-1990 (pg/mL) Final Performing Location LABORATORY [facility] - [address] [place] [address]
--- OUTSIDE RECORDS SUMMARY | 2023-12-29 12:11 | External Medical Summary ---
Author Name Unknown Address Unknown Organization [id number]:[place] [place] [address] [place] [address] Laboratory Report Ordering Provider Test Date Status TAMIE ROMOLAZARA 10/11/2023 08:25:40 Final Observation Date Value Abnormality Reference (Units ) Status Iron 10/11/2023 08:25:40 69 33-151 (ug/dL) Final Iron-binding capacity 10/11/2023 08:25:40 460 Above high normal 250-425 (ug/dL) Final Transferrin Sat % 10/11/2023 08:25:40 15 15-55 (%) Final Performing Location [facility] [place] [address] [place] [address]
--- OUTSIDE RECORDS SUMMARY | 2023-12-29 12:12 | External Medical Summary | Summary of Care ---
Author Name Unknown Organization [facility] Address [address] [facility] [place] [address] Phone [phone] Care Team Providers Care Chief Information Officer Name Role Phone Aruna Yoo DO Primary Care Provider Reason for Visit * Reason Comments Return Visit Encounter Details Date Type Department Care Team (Latest Contact Info) Description 08/26/2023 10:45 AM EDT Office Visit Gynecology/Obstetric s [facility] [address] [place] [address] Aurora Stewart CRNP [address] [place] [address] High-risk in second trimester*; Obesity in , antepartum; Multigravida of advanced maternal age in second trimester; Anxiety during ; Group B Streptococcus urinary tract infection affecting , antepartum; Encounter for follow-up ultrasound of anatomy Allergies Active Allergy Reactions Criticality Noted Date Comments Gluten Meal 11/18/2016 documented as of this encounter (statuses as of 08/26/2023) Medications Medication Sig Dispensed Refills Start Date [...] as of this encounter (statuses as of 08/26/2023) Active Problems Problem Noted Date Diagnosed Date [...] as of this encounter (statuses as of 08/26/2023) Resolved Problems Problem Noted Date Diagnosed Date [...] as of this encounter (statuses as of 08/26/2023) Immunizations Name Administration Dates Next Due DTaP [...] money to get more. Never true 05/11/2023 [place] Depression Scale Answer Date Recorded [place] Depression Scale Total 4 05/18/2023 The thought of harming myself has occurred to me . Never 05/18/2023 Estimated Date of Delivery Comme nts Yes [...] Sign Reading Time Taken Comments Blood Pressure 106/64 08/26/2023 10:11 AM EDT Pulse - - Temperature - - Respiratory Rate - - Oxygen Saturation - - Inhaled Oxygen Concentration - - Weight 98 kg (216 lb) 08/26/2023 10:11 AM EDT Height 157.5 cm (5' 2") 08/26/2023 10:11 AM EDT Body Mass Index 39.51 08/26/2023 10:11 AM EDT documented in this encounter Progress Notes * Aurora Stewart CRNP - 08/26/2023 10:33 AM EDT 21w0d Complaints: seasonal allergies. Discussed meds safe in . Feeling well otherwise. +FM. No contractions, bleeding, or LOF. Anatomy u/s today. Needs to return in 2 weeks for missed anatomy. Order placed. CHARISSE Alejandro * Nimco Tejada LPN - 08/26/2023 10:15 AM EDT 21w0d Had anatomy today Need 2 week fu on spine documented in this encounter Plan of Treatment Upcoming Encounters Date Type Department Care Team (Late st Contact Info) Description 09/08/2023 8:30 AM EDT Imaging Radiology [facility] [address] [place] [address] 09/22/2023 10:45 AM EDT Office Visit Gynecology/Obstetrics [facility] [address] [place] [address] Aurora Stewart CRNP [address] [place] [address] Scheduled Orders Name Type Priority Associated Diagnoses Orde r Schedule US PREG LIMITED 1 OR MORE FETUSES Medical Imaging Routine Encounter for follow-up ultrasound of anatomy Expected: 09/09/2023, Expires: 09/25/2024 Health Maintenance Due Date Last Done Comments HPV/Co-Test 02/02/2018 Diabetes Screening 06/09/2021 06/09/2018 COVID-19 Vaccine ( season) 2022 Influenza Vaccine (FLU shot) (Season Ended) 2023 Cervical Cancer Screening 09/01/2024 Pap Smear 09/01/2024 09/01/2021, 01/03, 11/19/2015, Additional history exists DTaP,Tdap,and Td Vaccines (8 - Td or Tdap) 01/29/2031 01/29/2021, 09/07/2012, 03/15/2000, Additional history exists Hepatitis B Completed 07/12/2000, 09/2000, 03/15/2000 GARDASIL-HPV IMMUNIZATION SERIES Aged Out No longer eligible based on [...] maternal age in second trimester Anxiety during Group B Streptococcus urinary tract infection affecting , antepartum Encounter for follow-up ultrasound of anatomy documented in this encounter Care Teams Chief Information Officer Relationship Specialty Start Date End Date Aruna Yoo DO [address] [place] [address] PCP - General Family Medicine 02/08/11 documented as of this encounter
--- OUTSIDE RECORDS SUMMARY | 2023-12-29 12:12 | External Medical Summary | Summary of Care ---
Author Name Unknown Organization [facility] Address [address] [place] [facility] [place] [address] Phone [phone] Care Team Providers Care Motorboat Operator Name Role Phone Aruna Yoo DO Primary Care Provider Reason for Visit * Reason Comments Outpatient Testing Encounter Details Date Type Department Care Team (Late st Contact Info) Description 08/02/2023 1:40 PM EDT Laboratory Laboratory [facility] [place] [address] [place] [phone] [facility] Lab [facility] [address] [place] [address] High-risk in second trimester Allergies Active Allergy Reactions Criticality Noted Date Comments Gluten Meal 11/18/2016 documented as of this encounter (statuses as of 08/02/2023) Medications Medication Sig Dispensed Refills Start Date End Date Status 19 Oral Tablet Take 1 Tablet by mouth in the morning. 0 Active Pantoprazole Sodium 40 MG Oral Tablet [...] as of this encounter (statuses as of 08/02/2023) Active Problems Problem Noted Date Diagnosed Date [...] as of this encounter (statuses as of 08/02/2023) Resolved Problems Problem Noted Date Diagnosed Date [...] as of this encounter (statuses as of 08/02/2023) Immunizations Name Administration Dates Next Due DTaP [...] money to get more. Never true 05/11/2023 [place] Depression Scale Answer Date Recorded [place] Depression Scale Total 4 05/18/2023 The thought [...] Care Team (Late st Contact Info) Description 08/26/2023 9:00 AM EDT Imaging Radiology [facility]nd [facility] [place] [address] [place] [address] 08/26/2023 10:45 AM EDT Office Visit Gynecology/Obstetrics Od[facility] Zhong [address] [place] [address] Aurora Stewart CRNP [address] [place] [address] Pending Results Name Type Priority Associated Diagnoses Date /Time MATERNAL SERUM AFP Lab Routine High-risk in second trimester 08/02/2023 4:53 PM EDT Health Maintenance Due Date Last [...] Visit Diagnoses Diagnosis High-risk in second trimester documented in this encounter Care Teams Motorboat Operator Relationship Specialty Start Date End Date Aruna Yoo DO [address] [place] [address] PCP - General Family Medicine 02/08/11 documented as of this encounter
--- OUTSIDE RECORDS SUMMARY | 2023-12-29 12:12 | External Medical Summary ---
Author Name Unknown Address Unknown Organization : Laboratory Report Ordering Provider Test Date Status MIRA HUBBARD 08/02/2023 16:53:52 Final Observation Date Value Abnormality Reference (Units ) Status INTERPRETATION 08/02/2023 16:53:52 SEE BELOW Final Screen negative for open NTD RISK FOR ONTD 08/02/2023 16:53:52 <1:5000 Final CALC'D GESTATIONAL AGE 0408/02/2023 16:53:52 17.6 Final AFP, SERUM 08/02/2023 16:53:52 21.6 (ng/mL) Final AFP MOM 08/02/2023 16:53:52 0.64 Final Reference Range:
NTD < 2.50
IDD <1.90
TWINS <4.00
TWINS IDD <3.50
TRIPLETS <4.50
The AFP test result indicates that this patient is
screen negative for open NTD. It should be noted
that normal test results can never guarantee the
of a normal baby and that 2-3% of newborns
have some type of physical or mental defect, many
of which are undetectable through any known
diagnostic technique.
This is a screening test, not a diagnostic test.
This risk assessment report is based in part on
demographic data provided by the ordering
physician. Please notify the laboratory promptly
if any data are incorrect. For assistance with
recalculations, please call your local [facility] laboratory. For assistance with
interpretation of these results, please contact
your Local [facility] genetic counselor or
call [phone] ([phone]).
Interpretive Cutoffs
Screen Positive for Open NTD:
> or = 2.50 adjusted MOM
> or = 1.90 adjusted MOM for insulin- dependent diabetics
> or = 4.00 adjusted MOM for twins
> or = 3.50 adjusted MOM for twins insulin-dependent diabetics
> or = 4.50 adjusted MOM for triplets
For additional information, please refer to
[email or web address]/[email or web address]
(This link is being provided for
informational/educational purposes only.) DATE OF 08/02/2023 16:53:52 1990 Final COLLECTION DATE 08/02/2023 16:53:52 08/02/2023 Final MATERNAL WEIGHT 08/02/2023 16:53:52 210 (lbs ) Final EST'D DATE OF DELIVERY 08/02/2023 16:53:52 01/06/2024 Final SCOOTER DETERMINED BY 08/02/2023 16:53:52 US Final MOTHER'S ETHNIC ORIGIN 08/02/2023 16:53:52 WHITE Final NUMBER OF FETUSES 08/02/2023 16:53:52 1 Final INSULIN DEPEND DIABETIC 08/02/2023 16:53:52 NO Final REPEAT SPECIMEN 08/02/2023 16:53:52 NO Final HX OF NEURAL TUBE DEFECTS 08/02/2023 16:53:52 NO Final PREV DOWN SYND 08/02/2023 16:53:52 NO Final DONOR EGG 08/02/2023 16:53:52 NO Final DONOR AGE: EGG RETRIEVAL 08/02/2023 16:53:52 NOT GIVEN Final Test performed by [facility]
[address],
[place] [address]

Junior Bookkeeper: Sunitha Gandhi MD,PHD,CHALINO
Test Reported by Kevin Joshua,
[facility],
[address] [place], [place]
Con Bartlett M.D., Ph.D., Director of Laboratories
, REGUL[place] [id number] Performing Location
--- OUTSIDE RECORDS SUMMARY | 2023-12-29 12:12 | External Medical Summary | Summary of Care ---
Author Name Unknown Organization [facility] Address [address] [facility] [place] [address] Phone [phone] Care Team Providers Care Heart Coordinator Name Role Phone Aruna Yoo DO Primary Care Provider Encounter Details Date Type Department Care Team (Late st Contact Info) Description 08/26/2023 Orders Only Radiology [facility] 2nd [facility] [place] [place] [address] [place] [address] Katie Nunn PA-C [address] [facility] [place] [id number] High-risk in second trimester* Allergies Active Allergy Reactions Criticality Noted Date [...] money to get more. Never true 05/11/2023 [place] Depression Scale Answer Date Recorded [place] Depression Scale Total 4 05/18/2023 The thought [...] Description 09/08/2023 8:30 AM EDT Imaging Radiology [facility] [address] [place] [address] 09/22/2023 10:45 AM EDT Office Visit Gynecology/Obstetrics Od[facility] Zhong [address] [place] [address] Aurora Stewart CRNP [address] [place] [address] Health Maintenance Due Date Last Done Comments [...] Diagnoses Diagnosis High-risk in second trimester- Primary documented in this encounter Care Teams Heart Coordinator Relationship Specialty Start Date End Date Aruna Yoo DO [address] [place] [address] PCP - General Family Medicine 02/08/11 documented as of this encounter
--- OUTSIDE RECORDS SUMMARY | 2023-12-29 12:12 | External Medical Summary | Summary of Care ---
Author Name Unknown Organization [facility] Address [address] [facility] [place] [address] Phone [phone] Care Team Providers Care Video Specialist Name Role Phone Aruna Yoo DO Primary Care Provider Reason for Visit * Reason Comments Return Visit Encounter Details Date Type Department Care Team (Latest Contact Info) Description 09/23/2023 8:30 AM EDT Office Visit Gynecology/Obstetric s [facility] Zhong [address] [place] [address] Aurora Stewart CRNP [address] [place] [address] High-risk in second trimester*; Obesity in , antepartum; Multigravida of advanced maternal age in second trimester; Anxiety during ; Group B Streptococcus urinary tract infection affecting , antepartum; Other specified related conditions, third trimester Allergies Active Allergy Reactions Criticality Noted Date Comments Gluten Meal 11/18/2016 documented as of this encounter (statuses as of 09/23/2023) Medications Medication Sig Dispensed Refills Start Date [...] as of this encounter (statuses as of 09/23/2023) Active Problems Problem Noted Date Diagnosed Date [...] as of this encounter (statuses as of 09/23/2023) Resolved Problems Problem Noted Date Diagnosed Date [...] as of this encounter (statuses as of 09/23/2023) Immunizations Name Administration Dates Next Due DTaP [...] Date Smoking Tobacco: Never Smokeless Tobacco: Never Tobacco Cessation:Counseling Given: Not Answered Alcohol Use Standard Drinks/Week Comments Not Currently [...] money to get more. Never true 05/11/2023 [place] Depression Scale Answer Date Recorded [place] Depression Scale Total 4 05/18/2023 The thought [...] Sign Reading Time Taken Comments Blood Pressure 108/62 09/23/2023 8:37 AM EDT Pulse - - Temperature - - Respiratory Rate - - Oxygen Saturation - - Inhaled Oxygen Concentration - - Weight 100.3 kg (221 lb 3.2 oz) 09/23/2023 8:37 AM EDT Height 157.5 cm (5' 2") 09/23/2023 8:37 AM EDT Body Mass Index 40.46 09/23/2023 8:37 AM EDT documented in this encounter Progress Notes * Aurora Stewart CRNP - 09/23/2023 8:54 AM EDT 25w Requesting to do 3hr GTT at 28w rather than 1 hour. Failed 1 hour last and feels that shewill again. Order placed for 3hr. Reviewed instructions. No other concerns. Baby is active. Denies contractions, bleeding, LOF. Growth u/s with next visit. CHARISSE Alejandro documented in this encounter Nursing Notes * Cindi Jaime RN - 09/23/2023 8:38 AM EDT Patient here for LINETTE 25w0d No concerns Cindi Jaime RN documented in this encounter Plan of Treatment Upcoming Encounters Date Type Department Care Team (Late st Contact Info) Description 10/11/2023 8:20 AM EDT Laboratory Laboratory, [facility] [address] [facility] [place] [address] [facility] [address] [facility] [place] [id number] 10/11/2023 8:30 AM EDT Imaging Radiology [facility] [address] [facility] [place] [address] 10/11/2023 9:30 AM EDT Office Visit Gynecology/Obstetrics [address] [place] [address] Katie Nunn PA-C [address] [place] [address] [place] [id number] Scheduled Orders Name Type Priority Associated Diagnoses Orde r Schedule SYPHILIS ANTIBODY SCREEN WITH REFLEX TO RPR Lab Routine High-risk in second trimester Expected: 09/23/2023, Expires: 09/22/2024 CBC WITH WBC DIFFERENTIAL AND ANEMIA REFLEX WORKUP Lab Routine High-risk in second trimester Expected: 09/23/2023, Expires: 09/22/2024 GESTATIONAL GLUCOSE TOLERANCE, 3 HOUR Lab Routine High-risk in second trimester Obesity in , antepartum Expected: 09/24/2023 (Approximate), Expires: 09/22/2024 PREG FOLLOW-UP EACH FETUS Medical Imaging Routine Obesity in , antepartum Other specified related conditions, third trimester Expected: 10/07/2023 (Approximate), Expires: 10/22/2024 Health Maintenance Due Date Last Done Comments [...] Streptococcus urinary tract infection affecting , antepartum Other specified related conditions, third trimester documented in this encounter Care Teams Video Specialist Relationship Specialty Start Date End Date Aruna Yoo DO [address] [place] [address] PCP - General Family Medicine 02/08/11 documented as of this encounter
--- OUTSIDE RECORDS SUMMARY | 2023-12-29 12:12 | External Medical Summary ---
Author Name Unknown Address Unknown Organization K01:LABORATORY C - [address] [place] [address] Laboratory Report Ordering Provider Test Date Status ISRA ROMO 10/11/2023 08:25:40 Final Observation Date Value Abnormality Reference (Units ) Status TSH 10/11/2023 08:25:40 1.38 0.27-4.20 (uIU/mL) Final Performing Location LABORATORY [facility] - [address] [place] [address]
--- OUTSIDE RECORDS SUMMARY | 2023-12-29 12:12 | External Medical Summary | Summary of Care ---
Author Name Unknown Organization [facility] Address [address] [address] Phone [phone] Care Team Providers Care Imposer Name Role Phone Aruna Yoo DO Primary Care Provider Reason for Visit * Reason Comments Return Visit Encounter Details Date Type Department Care Team (Late st Contact Info) Description 07/15/2023 8:45 AM EDT Office Visit Gynecology/[facility] [address] [facility] [place] [address] Katie Nunn PA-C [address] [facility] [place] [phone] High-risk in second trimester*; Obesity in , antepartum; Multigravida of advanced maternal age in second trimester; Anxiety during ; Group B Streptococcus urinary tract infection affecting in second trimester; Other specified related conditions, second trimester Allergies Active Allergy Reactions Criticality Noted Date Comments Gluten Meal 11/18/2016 documented as of this encounter (statuses as of 07/15/2023) Medications Medication Sig Dispensed Refills Start Date [...] for Nausea. 30 Tablet 1 07/15/2023 Active Promethazine HCl 25 MG Oral Tablet (Phenergan) Take 1 Tablet by mouth every 6 hours as needed for Nausea. 30 Tablet 1 06/15/2023 07/15/2023 Discontinued (Refill) documented as of this encounter (statuses as of 07/15/2023) Active Problems Problem Noted Date Diagnosed Date [...] as of this encounter (statuses as of 07/15/2023) Resolved Problems Problem Noted Date Diagnosed Date [...] as of this encounter (statuses as of 07/15/2023) Immunizations Name Administration Dates Next Due DTaP [...] money to get more. Never true 05/11/2023 [place] Depression Scale Answer Date Recorded [place] Depression Scale Total 4 05/18/2023 The thought [...] Sign Reading Time Taken Comments Blood Pressure 104/62 07/15/2023 8:49 AM EDT Pulse - - Temperature - - Respiratory Rate - - Oxygen Saturation - - Inhaled Oxygen Concentration - - Weight 95.7 kg (211 lb) 07/15/2023 8:49 AM EDT Height - - Body Mass Index 38.59 06/15/2023 8:24 AM EDT documented in this encounter Progress Notes * Katie Nunn PA-C - 07/15/2023 8:53 AM EDT Jane Tejada is a 33 year old female here for her routine OB appointment at 15w0d Her Estimated Date of Delivery: 01/06/24 REVIEW OF SYSTEMS She denies movement. She has no concerns at this time. Denies vaginal bleeding, LOF, contractions, N/V, headaches, vision changes, chest pain, deep calf pain. PHYSICAL EXAM Filed Vitals: 07/15/23 0849 BP: 104/62 Weight: 95.7 kg (211 lb) +FHT 150s ASSESSMENT/PLAN High-risk (Primary) - US PREG SINGLE/1ST GEST, 14 WEEKS OR LATER; Future; Expected date: 08/19/2023 - Promethazine HCl 25 MG Oral Tablet (Phenergan); Take 1 Tablet by mouth every 6 hours as needed for Nausea. - MATERNAL SERUM AFP; Future; Expected date: 07/22/2023 Obesity in , antepartum - Class II AMA (advanced maternal age) multigravida 35+ Anxiety during GBS (group B streptococcus) UTI complicating Other specified related conditions, second trimester - US PREG SINGLE/1ST GEST, 14 WEEKS OR LATER; Future; Expected date: 08/19/2023 Supervision of - anatomy u/s due in 5 weeks. Order placed and patient to schedule. Patient would like to schedule next LINETTE at same time as anatomy scan. - discussed MSAFP and role in detecting open neural tube defects. Patient is interested at this time. Advised to complete after 16 weeks gestation. RTO in ~4 weeks for LINETTE/anatomy scan. Katie Nunn PA-C 07/15/2023 * Jillian Avelar LPN - 07/15/2023 8:50 AM EDT 15w0d Denies vaginal bleeding/rom Absent movement No new concerns documented in this encounter Plan of Treatment Upcoming Encounters Date Type Department Care Team (Late st Contact Info) Description 08/26/2023 9:00 AM EDT Imaging Radiology [facility] 2nd [facility] [address] [place] [address] 08/26/2023 10:45 AM EDT Office Visit Gynecology/Obstetrics [facility] [address] [place] [address] Aurora Stewart CRNP [address] [place] [id number] Scheduled Orders Name Type Priority Associated Diagnoses Orde r Schedule US PREG SINGLE/1ST GEST, 14 WEEKS OR LATER Medical Imaging Routine High-risk in second trimester Other specified related conditions, second trimester Expected: 08/19/2023 (Approximate), Expires: 08/13/2024 MATERNAL SERUM AFP Lab Routine High-risk in second trimester Expected: 07/22/2023 (Approximate), Expires: 07/14/2024 Health Maintenance Due Date Last Done Comments HPV/Co-Test 02/02/2018 Diabetes Screening 06/09/2021 06/09/2018 COVID-19 Vaccine ( season) 2022 Influenza Vaccine (FLU shot) (Season Ended) 2023 Cervical Cancer Screening 09/01/2024 Pap Smear 09/01/2024 09/01/2021, 1012/2018, 11/19/2015, Additional history exists DTaP,Tdap,and Td Vaccines [...] B Streptococcus urinary tract infection affecting in second trimester Other specified related conditions, second trimester documented in this encounter Care Teams Imposer Relationship Specialty Start Date End Date Aruna Yoo DO [address] [place] [address] PCP - General Family Medicine 02/08/11 documented as of this encounter
--- OUTSIDE RECORDS SUMMARY | 2023-12-29 12:12 | External Medical Summary | Summary of Care ---
Author Name Unknown Organization [facility] Address [address] [facility] [place] [address] Phone [phone] Care Team Providers Care Ip Litigation Paralegal Name Role Phone Aruna Yoo DO Primary Care Provider Reason for Visit * Reason Comments eRx-Medication Refill Encounter Details Date Type Department Care Team (Late st Contact Info) Description 07/04/2023 Refill Gynecology/Obstetrics [facility] [address] [place] [address] Demetrius Stewart CRNP [address] [place] [id number] Allergies Active Allergy Reactions Criticality Noted Date Comments Gluten Meal 11/18/2016 documented as of this encounter (statuses as of 07/04/2023) Medications Medication Sig Dispensed Refills Start Date End Date Status 19 Oral Tablet Take 1 Tablet by mouth in the morning. 0 Active Pantoprazole Sodium 40 MG Oral Tablet Delayed Release (Protonix)Indicat ions:Gastroesopha geal reflux disease TAKE 1 TABLET DAILY 90 Tablet 3 05/27/2023 Active Promethazine HCl 25 MG Oral Tablet (Phenergan) Take 1 Tablet by mouth every 6 hours as needed for Nausea. 30 Tablet 1 06/15/2023 Active Ondansetron HCl 4 MG Oral Tablet Take 1 Tablet by mouth in the morning and 1 Tablet at noon and 1 Tablet before bedtime. 40 Tablet 2 06/17/2023 Active Sertraline HCl 25 MG Oral Tablet (Zoloft) TAKE 1 TABLET DAILY 90 Tablet 3 07/04/2023 Active Sertraline HCl 25 MG Oral Tablet (Zoloft) Take 1 Tablet by mouth daily. 90 Tablet 3 07/22/2022 07/04/2023 Discontinued documented as of this encounter (statuses as of 07/04/2023) Active Problems Problem Noted Date Diagnosed Date [...] as of this encounter (statuses as of 07/04/2023) Resolved Problems Problem Noted Date Diagnosed Date [...] as of this encounter (statuses as of 07/04/2023) Immunizations Name Administration Dates Next Due DTaP [...] money to get more. Never true 05/11/2023 [place] Depression Scale Answer Date Recorded [place] Depression Scale Total 4 05/18/2023 The [...] encounter Miscellaneous Notes * Telephone Encounter - Demetrius Stewart CRNP - 07/04/2023 10:49 AM EDTSigned Prescriptions: Disp Refills Sertraline HCl 25 MG Oral Tablet (Zoloft) 90 Tab*3 Sig: TAKE 1 TABLET DAILY Authorizing Provider: DEMETRIUS STEWART * Telephone Encounter - Mamta Bergman LPN - 07/04/2023 10:27 AM EDT Pending Prescriptions: Disp Refills Sertraline HCl 25 MG Oral Tablet [Pharmacy*90 Tab*3 Sig: TAKE 1TABLET DAILY documented in this encounter Plan of Treatment Upcoming Encounters Date Type Department Care Team (Late st Contact Info) Description 07/15/2023 8:45 AM EDT Office Visit Gynecology/Obstetrics [facility] [address] [facility] [place] [address] Katie Nunn PA-C [address] [place] [id number] Health Maintenance Due Date Last Done Comments HPV/Co-Test 02/02/2018 Depression Screening 05/25/2020 05/25/2019 Diabetes Screening 06/09/2021 06/09/2018 COVID-19 [...] filedocumented as of this encounter Care Teams Ip Litigation Paralegal Relationship Specialty Start Date End Date Aruna Yoo DO [address] [place] [address] PCP - General Family Medicine 02/08/11 documented as of this encounter
--- OUTSIDE RECORDS SUMMARY | 2023-12-29 12:12 | External Medical Summary ---
Author Name Unknown Address Unknown Organization K01:[place] [place] [address] [facility] [place] [address] Laboratory Report Ordering Provider Test Date Status ISRA ROMO 10/11/2023 08:25:40 Final Observation Date Value Abnormality Reference (Units ) Status WBC, Total 10/11/2023 08:25:40 11.84 Above high normal 4 .00-10.80 (K/uL) Final RBC 10/11/2023 08:25:40 3.80 3.85-5.15 (M/uL) Final Hemoglobin 10/11/2023 08:25:40 11.2 Below low normal 12 .0-15.3 (g/dL) Final Anemia reflex testing trigge rs on a HGB < 12.0 for Females and HGB < 13.0 for Males in accordance with the WHO Anemia Guidelines
Anemia reflex testing triggers on a HGB < 12.0 for Females and HGB < 13.0 for Males in accordance with the WHO Anemia Guidelines HCT 10/11/2023 08:25:40 34.2 Below low normal 36. 0-45.2 (%) Final MCV 10/11/2023 08:25:40 90.0 81.5-97.5 (fL) Final MCH 10/11/2023 08:25:40 29.5 27.0-34.0 (pg) Final MCHC 10/11/2023 08:25:40 32.7 32.0-36.0 (g/dL) Final RDW 10/11/2023 08:25:40 13.6 11.5-15.5 (%) Final Platelets 10/11/2023 08:25:40 240 140-400 (K /uL) Final MPV 10/11/2023 08:25:40 10.3 6.6-11.1 ( fL) Final Nucleated erythrocytes/100 leukocytes [Ratio] in Blood by Automated count 10/11/2023 08:25:40 0 <=0 (/100 WBCs) Final Performing Location [facility]ATORY [facility] - [address] [facility] [address]
--- OUTSIDE RECORDS SUMMARY | 2023-12-29 12:12 | External Medical Summary ---
Author Name Unknown Address Unknown Organization K01:[place] [place] [address] [facility] [address] Laboratory Report Ordering Provider Test Date Status ISRA ROMO 10/11/2023 08:25:40 Final Observation Date Value Abnormality Reference (Units ) Status Treponema pallidum Ab [Presence] in Serum by Immunoassay 10/11/2023 08:25:40 Nonreactive Nonreactive Final No serologic evidence of syp hilis. No additional testing clinicially indicated at this time. Consider repeat testing in 2-4 weeks if acute or primary syphilis is suspected. Performing Location [facility] [place] [address] [place] [address]
--- OUTSIDE RECORDS SUMMARY | 2023-12-29 12:12 | External Medical Summary | Summary of Care ---
Author Name Unknown Organization [facility] Address [address] [facility] [place] [address] Phone [phone] Care Team Providers Care Chain Sales Representative Name Role Phone Aruna Yoo DO Primary Care Provider Encounter Details Date Type Department Care Team (Late st Contact Info) Description 07/19/2023 Orders Only PATIENT PORTAL DO NOT DELETE THIS DEPT USED BY [place] [phone] Allergies Active Allergy Reactions Criticality Noted Date Comments Gluten Meal 11/18/2016 documented as of this encounter (statuses as of 07/19/2023) Medications Medication Sig Dispensed Refills Start Date [...] as of this encounter (statuses as of 07/19/2023) Active Problems Problem Noted Date Diagnosed Date [...] as of this encounter (statuses as of 07/19/2023) Resolved Problems Problem Noted Date Diagnosed Date [...] as of this encounter (statuses as of 07/19/2023) Immunizations Name Administration Dates Next Due DTaP [...] money to get more. Never true 05/11/2023 [place] Depression Scale Answer Date Recorded [place] Depression Scale Total 4 05/18/2023 The thought [...] Description 08/26/2023 9:00 AM EDT Imaging Radiology [facility] 2nd [facility] [address] [facility] [place] [address] 08/26/2023 10:45 AM EDT Office Visit Gynecology/Obstetrics [facility] [address] [facility] [place] [address] Aurora Stewart CRNP [address] [place] [address] Health Maintenance Due Date Last Done Comments [...] filedocumented as of this encounter Care Teams Chain Sales Representative Relationship Specialty Start Date End Date Aruna Yoo DO [address] [place] [address] PCP - General Family Medicine 02/08/11 documented as of this encounter
[2023-12-29] MEDS: OXYTOCIN 30 UNITS/NSS 30 UNITS/500 ML BAG IV PRN (12:33)
[2023-12-29] MEDS: ePHEDrine sulfate 50 MG/ML AMP ONE (12:53)
[2023-12-29] MEDS: SODIUM CHLORIDE 0.9% PF INJ 10 ML VIAL ONE (12:53)
[2023-12-29] MEDS: fentaNYL citrate PF 100 MCG/2 ML VIAL ONE (12:53)
[2023-12-29] MEDS: fentaNYL citrate PF 100 MCG/2 ML VIAL EPI STA (12:53)
[2023-12-29] MEDS: BUPIVACAINE 0.25% PF 30 ML VIAL EPI STA (12:53)
[2023-12-29] MEDS: SODIUM CHLORIDE 0.9% PF INJ 10 ML VIAL EPI STA (12:54)
[2023-12-29] MEDS: LIDOCAINE 2%/EPINEPHRINE 1:200,000 20 ML PF EPI STA (12:54)
[2023-12-29] MEDS: PENICILLIN GK 3 MU in DEXTROSE 5% 100 ML IV PRN (13:53)
[2023-12-29] MEDS: METHYLERGONOVINE MALEATE 0.2 MG/ML AMP IM ONE (17:03)
[2023-12-29] MEDS ORDERED: bisacodyL 10 MG SUPP PR PRN (17:15)
[2023-12-29] MEDS ORDERED: oxyCODONE/ACETAMINOPHEN 5mg/325mg TAB PO PRN (17:15)
[2023-12-29] MEDS ORDERED: ACETAMINOPHEN W/CODEINE #3 1 TAB PO PRN (17:15)
[2023-12-29] MEDS ORDERED: HYDROCORTISONE ACETATE 25 MG SUPP PR PRN (17:15)
--- NOTE | 2023-12-29 17:19 | Delivery Summary ---
Vaginal Delivery Summary Date of Service December 29, 2023 Vaginal Delivery Summary Patient was admitted to maternity at 38 weeks 6 days gestation. care was complicated by gestational diabetes. She had questionable rupture of membranes on admission. This was easily confirmed by exam after she arrived on maternity. Beta strep positive. He was immediately started on penicillin. And started on IV Pitocin. She received epidural for pain control at about 4 to 5 cm. With 1 episode of bradycardia which necessitated stopping the pit and changing position. She eventually recovered. She then went on to go to full dilatation. Liver live via direct occiput anterior position over an intact perineum. There was a nuchal cord x 2 which was reduced over the head prior to the delivery of the body. The cord was then allowed to pulse for 1 minute. Was clamped cut by the father Cord blood was taken with IV Pitocin running the placenta was removed intact. There was a KRYSTAL clitoral laceration in the midline this was repaired with a running 3-0 chromic on a small needle. Following this hemostasis was good. Quantitative blood loss was 100 mL.
--- NOTE | 2023-12-29 17:48 | Anesthesia Procedure Note ---
Date of Service December 29, 2023 Anesthesia Post Epidural Note Vital Signs Vital Signs: Temp Pulse Resp BP Pulse Ox 36.8 C 151 H 18 109/56 L 98 12/29/23 16:56 12/29/23 17:36 12/29/23 17:10 12/29/23 17:36 12/29/23 17:03 Pain Intensity Lower Abdomen: Pain Intensity: 4 Notes Mental Status: alert / awake / arousable Nausea / Vomiting: adequately controlled Pain: adequately controlled Airway Patency, RR, SpO2: stable & adequate BP & HR: stable & adequate Hydration State: stable & adequate Neuraxial Anesthesia: was administered and sensory block is resolving Anesthetic Complications: no major complications apparent and Pt Satisfied with anesthetic care Epidural: Removed without complications and With tip intact
[2023-12-29] MEDS: BENZOCAINE 20% SPRY 85 APPLN/85 GM CAN EXT PRN (18:14)
[2023-12-29] MEDS: IBUPROFEN 600 MG TAB PO PRN (18:14)
[2023-12-29] MEDS: DIPHTHER/TETAN/PERTUS Vaccine (Tdap, Adol/Adult) 0.5mL IM ONE (20:14)
[2023-12-29] MEDS: DOCUSATE SODIUM 100 MG CAP PO SCH (22:22)
--- OUTSIDE RECORDS SUMMARY | 2023-12-30 03:25 | External Medical Summary | Summary of Care ---
Author Name Unknown Organization [facility] Address [address] [place] [place] [address] Phone [phone] Care Team Providers Care Benefits Coordinator Name Role Phone Aruna Yoo DO Primary Care Provider Encounter Details Date Type Department Care Team (Late st Contact Info) Description 12/29/2023 Result Scan Unspecified Department <No scans attached> Allergies Active Allergy Reactions Criticality Noted Date Comments Gluten Meal 11/18/2016 documented as of this encounter (statuses as of 12/29/2023) Medications Medication Sig Dispensed Refills Start Date End Date Status 19 Oral Tablet Take 1 Tablet by mouth in the morning. Active Pantoprazole Sodium 40 MG Oral Tablet Delayed Release (Protonix)Indication s:Gastroesophageal reflux disease TAKE 1 TABLET DAILY 90 Tablet 3 05/27/2023 Active Sertraline HCl 25 MG Oral Tablet (Zoloft) TAKE 1 TABLET DAILY 90 Tablet 3 07/04/2023 Active Breast PumpIndications:[place] st feeding status of mother Use as [...] once per day, Reported on 10/27/2023 OneTouch Selpheeio Flex System w/Device KitIndications:Gesta tional diabetes mellitus (GDM) in second trimester, gestational diabetes method of control unspecified Use to test blood sugars 4 times daily (fasting, 1 hour after breakfast, lunch, and dinner) 1 Kit 10/13/2023 Active Monetsuuch Delica Lancets 30GIndications:Gesta tional diabetes mellitus (GDM) in second trimester, gestational diabetes method of control unspecified Use to test blood sugars 4 times daily (fasting, 1 hour after breakfast, lunch, and dinner) 200 Each 6 10/13/2023 Active Tvoop Verio In Vitro Strip (Glucose Blood)Indications:Di et controlled [...] as of this encounter (statuses as of 12/29/2023) Active Problems Problem Noted Date Diagnosed Date [...] a food diary with any PP elevations 12/09/20233442-ZIB-pseijrlee via sharifa and messaging. Overall stable (< 50% elevated) 12/14/20233264-ZDV-dzwnwmv stable (< 50% elevated) 12/22/20230236-CJY-jvnbabi stable (< 50% elevated) 12/28/20234300-MGS-foyiecki 2 of the past 6 days. Sent message asking her to update readings. 12/29/20231304-HWH-rsqk message updating 3 days. Overall stable (< 50% elevated) Last Assessment [...] and folate levels and referral to a detective bureau chief. If hemoglobin levels are below 8 g/dl, we recommend Maternal Medicine ultrasound for growth every 4 weeks after 24 weeks. Consider a blood transfusion if hemoglobin levels fall below 6 g/dL. ([employer] Practice Bulletin Number 95, October,). Consider Venofer transfusions if patient labs supportive of iron deficiency anemia with dosing of 300 mg IV weekly x 3 weeks GBS (group B streptococcus) UTI complicating pre gnancy 05/23/2023 Supervision of high-risk , third [facility] 05/18/2023 Obesity in , antepartum 05/18/2023 Overview: Pre-gravid BMI 38.77 (#212, 5'2") Last Assessment & Plan: Has been following growth with radiology; will transition to [facility]. AMA (advanced maternal age) multigravida [...] as of this encounter (statuses as of 12/29/2023) Resolved Problems Problem Noted Date Diagnosed Date Resolved Date GBS (group B Streptococcus c sera), +RV culture, currently 03/26/2021 05/17/2023 , normal first 09/10/202005/05 Class 2 obesity 09/10/2020 11/07/2023 Overview: Early glucola Growth u/s every 4 weeks after 20wk Binge eating disorder 06/02/20182023 Overweight (BMI 25.0-29.9) 07/03/2011 1 05/21/2017 Overview: BMI= 28.72 07/03/11 documented as of this encounter (statuses as of 12/29/2023) Immunizations Name Administration Dates Next Due DTaP [...] money to get more. Never true 05/11/2023 [place] Depression Scale Answer Date Recorded [place] Depression Scale Total 4 05/18/2023 The thought [...] No 05/11/2023 Does the household have a [facility] hospitallar source of income? (Household - for [...] as of this encounter Plan of Treatment Health Maintenance Due Date Last Done Comments [...] Procedure Name Priority Date/Time Associated Diagnosis Comments OUTSIDE LAB RESULTS 12/29/2023 documented in this encounter Results * OUTSIDE LAB RESULTS (12/29/2023) 12/29/2023 No Physician Data Unknown LABORATORY documented in this encounter Additional Health Concerns Active Problems Noted Date Diagnosed Date OB Reminders 10/23/2023 documented as of this encounter Care Teams Benefits Coordinator Relationship Specialty Start Date End Date Aruna Yoo DO [address] [place] [address] PCP - General Family Medicine 02/08/11 documented as of this encounter
[2023-12-30 06:15] LABS: Hematocrit (blood only) 33.3 % (37.0-47.0); Hemoglobin 11.1 g/dl (12.0-16.0); Mean Corpuscular Hemoglobin 29.3 pg (25.0-34.0); Mean Corpuscular Hgb Conc 33.3 g/dL (32.0-36.0); Mean Corpuscular Volume 87.9 fL (80.0-100.0); Mean Platelet Volume 11.3 fL (9.4-12.4); Platelet Count 198 K/uL (130-400); RDW Coefficient of Variation 13.6 % (11.5-14.5); RDW Standard Deviation 43.6 fL (36.4-46.3); Red Blood Count 3.79 M/uL (4.20-5.40); White Blood Count 14.13 K/ul (4.8-10.8)
[2023-12-30] MEDS: METHYLERGONOVINE MALEATE 0.2 MG/ML AMP ONE (07:21)
[2023-12-30] MEDS: PRENATAL VITAMIN 1 TAB PO SCH (09:28)
--- NOTE | 2023-12-30 11:25 | Obstetrical Progress Note ---
Date of Service December 30, 2023 Assessment & Plan (1) Normal course: PPD #1 pt doing well anticipate disch tomorrow Subjective Ambulation: ambulating normally Voiding: no voiding problems Passing Gas:: Yes Diet Tolerance:: regular diet Lochia:: Small Feeding Type:: breast feeding Review of Systems All systems reviewed & are unremarkable except as noted in HPI & below Physical Exam Constitutional WD/WN, vitals as above well developed and well nourished Eyes PERRL, conjunctivae normal, anicteric sclerae Neck trachea midline, no thyromegaly Respiratory normal respiratory effort, lungs clear to auscultation Auscultation: no crackles, no rales and no wheezes Cardiovascular RRR, no murmur, no edema Gastrointestinal (Abdomen) normal bowel sounds, soft, nontender, no hepatosplenomegaly Uterus is below umbilicus Musculoskeletal no cyanosis or clubbing, extremities motor strength 5/5 Skin no rashes, warm and dry Neurologic patellar DTR's 2+ bilat, sensation intact Psychiatric A+Ox3, euthymic affect Genitourinary normal external appearance Results & Data Vital Signs (Past 12 Hours) Vital Signs Temp Pulse Resp BP Pulse Ox O2 Del Method 12/30/23 09:45 36.7 C 81 18 119/79 12/30/23 09:45 36.7 C 81 18 119/79 Room Air 12/30/23 07:42 36.8 C 87 18 110/72 12/30/23 03:38 36.3 C L 76 18 117/72 97 Room Air
[2023-12-30] MEDS: PANTOprazole 40 MG TAB PO SCH (11:29)
[2023-12-30] MEDS: SERTRALINE HCL 50 MG TABLET PO SCH (11:29)
[2023-12-30] MEDS: bisacodyL 5 MG TABEC PO SCH (20:23)
[2023-12-31 05:59] LABS: Hematocrit (blood only) 36.6 % (37.0-47.0); Hemoglobin 12.2 g/dl (12.0-16.0)
[2023-12-31 06:06] VITALS: RESP 16
[2023-12-31 07:45] VITALS: BP 117/80; PULSE 73; TEMP 97.7; O2SAT 96
--- NOTE | 2023-12-31 08:17 | Obstetrical Progress Note ---
Date of Service December 31, 2023 Assessment & Plan (1) Normal course: pt doing well no complaints d/c home with instrcutions Subjective Ambulation: ambulating normally Voiding: no voiding problems Passing Gas:: Yes Diet Tolerance:: regular diet Lochia:: Small Feeding Type:: breast feeding Review of Systems All systems reviewed & are unremarkable except as noted in HPI & below Physical Exam Constitutional WD/WN, vitals as above well developed and well nourished Eyes PERRL, conjunctivae normal, anicteric sclerae Neck trachea midline, no thyromegaly Respiratory normal respiratory effort, lungs clear to auscultation Auscultation: no crackles, no rales and no wheezes Cardiovascular RRR, no murmur, no edema Gastrointestinal (Abdomen) normal bowel sounds, soft, nontender, no hepatosplenomegaly Uterus is below umbilicus Musculoskeletal no cyanosis or clubbing, extremities motor strength 5/5 Skin no rashes, warm and dry Neurologic patellar DTR's 2+ bilat, sensation intact Psychiatric A+Ox3, euthymic affect Genitourinary normal external appearance Results & Data Vital Signs (Past 12 Hours) Vital Signs Temp Pulse Resp BP Pulse Ox O2 Del Method 12/31/23 07:35 36.5 C 73 16 117/80 96 Room Air 12/30/23 23:25 36.4 C L 64 16 118/82 98 Room Air
== END 2023-12-31 11:15 | disposition home or self-care (01) | DRG 768 ==
LOC: OPB 08:45 → 4S1 08:48 → 4E2 19:48